=== PATIENT | female | born 1935 | race Caucasian/White ===

== ENCOUNTER 2017-01-08 05:04 | Observation (INO) | payer OTHER ==
[2017-01-08] VITALS (7 sets, daily range): BP systolic 127–160; BP diastolic 69–86; PULSE 54–74; TEMP 36.6–36.9; O2SAT 91–100; Ht 165.1 cm; Wt 113.6 kg
[~2017-01-08] VITALS: Ht 165.1 cm; Wt 113.6 kg
[~2017-01-08 05:04] MED LIST: ATV/1 PO; CALC0.2510 PO; CALCTAB36 PO; CMD5 PO; CPR500 PO; FURO40TA3 PO; GEMF600T3 PO; HYDR1TAB2 PO; INSU1INJ16; LEVO100T7 PO; LPT/40 PO; MCRK20 PO; MGNO400 PO; MULT-190 PO; MULTTAB58 PO; NVLNI SC; NXM/40 PO; PARO1TAB27 PO; TPRSR50 PO
[2017-01-08] MEDS ORDERED: LIDOCAINE/EPINEPH/TETRACAINE 1 EA SYR EXT STA (05:12)
[2017-01-08] MEDS ORDERED: DIPHTHERIA/TETANUS/PERTUSSIS 0.5 ML SYR/VIAL IM. ONE (05:30)
[2017-01-08 05:37] LABS: MEAN CORPUSCULAR HGB CONC 30.2 g/dl (32-36); MEAN PLATELET VOLUME 9.4 fL (7.4-10.4); PLATELET COUNT 219 K/uL (130-400)
[2017-01-08 05:45] LABS: POINT OF CARE TROPONIN I 0.06 ng/ml (0-0.045)
[2017-01-08 05:55] LABS: BUN/CREATININE RATIO 19.6 (10-20); CALCIUM 9.5 mg/dl (8.5-10.1); CREATININE 2.1 mg/dl (0.60-1.20); MAGNESIUM 1.9 mg/dl (1.8-2.4)
[2017-01-08 05:57] LABS: INR 1.1 (0.9-1.1); PROTHROMBIN TIME (PATIENT) 12.3 SECONDS (9.0-12.0)
[2017-01-08 06:18] LABS: HEMATOCRIT 32.4 % (37-47); MEAN CELL VOLUME 105.5 fL (80-100); MEAN CORPUSCULAR HEMOGLOBIN 31.9 pg (25-34); RED BLOOD COUNT 3.07 M/uL (4.2-5.4); WHITE BLOOD COUNT 26.88 K/uL (4.8-10.8)
[2017-01-08] MEDS ORDERED: ATV1 PO (06:21)
[2017-01-08] MEDS ORDERED: METO100T14 PO (06:21)
[2017-01-08] MEDS ORDERED: XRL15 PO (06:21)
[2017-01-08] MEDS ORDERED: HYDR-4383 PO (06:21)
[2017-01-08] MEDS ORDERED: HYZ/50125 PO (06:25)
[2017-01-08] MEDS ORDERED: PARO30TA3 PO (06:26)
[2017-01-08] MEDS ORDERED: ALLO100T PO (06:26)
[2017-01-08] MEDS ORDERED: LEVO150T9 PO (06:27)
[2017-01-08] MEDS ORDERED: TRAM-10 PO (06:27)
[2017-01-08] MEDS ORDERED: INSP SQ (06:30)
[2017-01-08] MEDS ORDERED: NVLNI SQ ×2 (06:30)
[2017-01-08 06:33] LABS: CKMB/CK RATIO 6.8 (0-3.0)
[2017-01-08 06:37] LABS: COMPLETE YES; EOSINOPHIL % 0.9 %; HYPOCHROMIA PRESENT; LYMPH ABS # 17.66 K/uL (1.2-3.4); LYMPHOCYTE % 65.7 %; NEUTROPHILS % 22.8 %; PROLYM# MAN 1.42 K/uL (0-0); SMUDGE CELLS PRESENT
--- NOTE | 2017-01-08 07:18 | DIAGNOSTIC IMAGING REPORT ---
CT OF THE HEAD WITHOUT CONTRAST CLINICAL HISTORY: Fall with head injury. Anticoagulation COMPARISON STUDY: Head CT August 25, 2013. CT DOSE: 614.27 mGy.cm TECHNIQUE: Helical axial images of the head were obtained without IV contrast. Automated exposure control was utilized for the study. FINDINGS: No acute intracranial hemorrhage, midline shift or mass effect is present. A small area of encephalomalacia within the right frontal lobe is new since head CT of August 25, 2013 but is chronic. Ventricular system is stable. The basilar cisterns are patent. There are no extra-axial collections. There are no findings to suggest acute dural sinus thrombosis or acute territorial infarct. There is mild mucosal thickening of the sphenoid sinuses. No calvarial fracture is identified. IMPRESSION: 1. No acute intracranial findings. 2. No calvarial fracture. 3. Old right frontal lobe infarct. 4. Study mildly compromised by motion artifact. Electronically signed by: Nelson Benito M.D. 01/08/2017 7:17 AM Dictated Date/Time: 01/08/2017 7:14 AM
--- NOTE | 2017-01-08 07:20 | DIAGNOSTIC IMAGING REPORT ---
CHEST ONE VIEW PORTABLE CLINICAL HISTORY: Fall. COMPARISON STUDY: Chest radiograph April 12, 2015. FINDINGS: There is no pneumothorax or pleural effusion. Elevation/eventration of the right hemidiaphragm is unchanged. Moderate to marked cardiomegaly is unchanged. There is pulmonary vascular congestion without overt pulmonary edema. There is no lobar consolidation. IMPRESSION: 1. Stable cardiomegaly with pulmonary vascular congestion. No overt pulmonary edema. 2. No pneumothorax. Electronically signed by: Nelson Benito M.D. 01/08/2017 7:18 AM Dictated Date/Time: 01/08/2017 7:17 AM
[2017-01-08] MEDS ORDERED: MAGNESIUM HYDROXIDE SUSP 30 ML UDC PO PRN (08:00)
[2017-01-08] MEDS ORDERED: ONDANSETRON INJ 2 MG/ML 2 ML VIAL IV PRN (08:00)
[2017-01-08] MEDS ORDERED: POLYETHYLENE (MIRALAX) 17 GM PACK PO PRN (08:00)
[2017-01-08] MEDS ORDERED: NITROGLYCERIN 0.4 MG SL PER TAB CHARGE SL PRN (08:00)
[2017-01-08] MEDS ORDERED: TRAMADOL HCL 50 MG TAB PO PRN (08:00)
[2017-01-08] MEDS ORDERED: LORAZEPAM 1 MG TAB PO PRN (08:00)
[2017-01-08] MEDS ORDERED: ALUMINUM/MAGNESIUM/SIMETH (MAALOX MAX) 30 ML UDC PO PRN (08:00)
--- NOTE | 2017-01-08 08:54 | History and Physical ---
History & Physical Date & Time of Service: Jan 08, 2017 at 08:26 Chief Complaint: Fall/Laceration/Headache Primary Care Physician: Joesph Horan M.D. History of Present Illness Source: patient Patient is a pleasant 81 y/o male, with PMHx of CCL, a.fib, diastolic CHF, HTN, DM, CKD- stage IV, depression/anxiety, hyperlipidemia, DEXTER, hypothyroidism, and osteoarthritis, who presented to the ED because of a fall. Per patient, she went to bed feeling well. She woke ~0300 to use the restroom. She stood from bed , went to grab her walker and fell, hitting her face off the wall. Patient states she remembers the entire event, denying any syncope or LOC. Patient denies any lightheadedness/dizziness. Per patient, she believes she fell because her legs gave out. Patient has ostearthritis and states over the last 1- 2 days her legs have been very stiff and painful. Patient received 3 stitches on the upper right lip in the ED. She denies any significant pain anywhere from the fall. Patient denies any fever, chills, sweats, lightheadedness, dizziness, vision changes, CP, palpitations, edema, SOB, wheezing, cough, abdominal pain, nausea, vomiting, diarrhea, urinary symptoms, melena, numbness/tingling, weakness, anxiety/depression, active bleeding, or new skin discoloration/ changes. Past Medical/Surgical History Medical Problems: 1. CCL 2. a.fib 3. diastolic CHF 4. HTN 5. DM 6. CKD- stage IV 7. depression/anxiety 8. hyperlipidemia 9. DEXTER 10. hypothyroidism 11. osteoarthritis Family History 1. HTN 2. DM 3. Breast cancer 4. CAD 5. Colon cancer 6. Ovarian cancer Social History Smoking Status: Never Smoker Drug Use: none Marital Status: Housing status: lives alone Occupational Status: retired Immunizations History of Influenza Vaccine: Yes Influenza Vaccine Date: Aug 26, 2006 History of Tetanus Vaccine?: Yes History of Pneumococcal: Yes History of Hepatitis B Vaccine: No Multi-Drug Resistant Organisms History of MDRO: No Allergies Coded Allergies: Aspirin (Verified Adverse Reaction, Unknown, INTOLERANT-HX GI BLEED, ) Home Medications Scheduled Allopurinol (Zyloprim), 100 MG PO DAILY Atorvastatin (Lipitor), 40 MG PO HS Calcitriol (Rocaltrol Cap), 0.25 MCG PO DAILY Esomeprazole Magnesium (Nexium), 40 MG PO DAILY Furosemide (Lasix), 40 MG PO DAILY Hctz/Losartan (Hyzaar 12.5MG/50MG), 1 TAB PO DAILY Insulin Human NPH (Novolin N), 65 UNITS SQ QAM Insulin Human NPH (Novolin N), 35 UNITS SQ QPM Insulin Human Regular (Novolin R), SQ ACHS Levothyroxine Sodium (Levothyroxine Sodium), 1 TAB PO DAILY Metoprolol Tartrate (Lopressor) (Lopressor), 100 MG PO BID Paroxetine HCl (Paroxetine), 30 MG PO DAILY Rivaroxaban (Xarelto), 15 MG PO DAILY Scheduled PRN Hydrocodone/Acetaminophen (Ennis 10/325 Tab), 1-2 TAB PO Q12 PRN for Pain Lorazepam (Lorazepam), 1 MG PO DAILY PRN for Anxiety Tramadol (Ultram), 50 MG PO Q6 PRN for Pain Physical Exam Vital Signs Date Time Temp Pulse Resp B/P Pulse Ox O2 Delivery O2 Flow Rate FiO2 01/08/17 08:22 55 20 130/76 96 Room Air 01/08/17 06:30 54 18 142/56 95 Room Air 01/08/17 05:53 54 18 135/63 95 Room Air 01/08/17 05:47 54 01/08/17 05:15 Room Air 01/08/17 05:05 36.8 54 24 120/65 96 Room Air General Appearance: no apparent distress, + obese Head: normocephalic, atraumatic Eyes: normal inspection, PERRL ENT: hearing grossly normal, + pertinent finding (swollen/bruised upper right lip, with 3 stitches present ) Neck: supple Respiratory/Chest: lungs clear, no respiratory distress, no accessory muscle use Cardiovascular: regular rate, rhythm, + systolic murmur Abdomen/GI: normal bowel sounds, non tender, soft Back: normal inspection Extremities/Musculoskelatal: no calf tenderness, + pedal edema, + swelling ( bilateral lower extremity swelling, non-pitting- baseline per patient ) Neurologic/Psych: alert, normal mood/affect, oriented x 3 Skin: normal color, warm/dry, no rash Diagnostics Laboratory Results Results Past 24 Hours Test 01/08/17 05:12 2/13/17 05:20 01/08/17 05:26 Range/Units White Blood Count 26.88 4.8-10.8 K/uL Red Blood Count 3.07 4.2-5.4 M/uL Hemoglobin 9.8 12.0-16.0 g/dL Hematocrit 32.4 37-47 % Mean Corpuscular Volume 105.5 80-100 fL Mean Corpuscular Hemoglobin 31.9 25-34 pg Mean Corpuscular Hemoglobin Concent 30.2 32-36 g/dl Platelet Count 219 130-400 K/uL Mean Platelet Volume 9.4 7.4-10.4 fL RDW Standard Deviation 57.4 36.4-46.3 fL RDW Coefficient of Variation 15.0 11.5-14.5 % Neutrophils % (Manual) 22.8 % Lymphocytes % (Manual) 65.7 % Prolymphocyte % 5.3 % Monocytes % (Manual) 5.3 % Eosinophils % (Manual) 0.9 % Neutrophils # (Manual) 6.13 1.4-6.5 K/uL Total Absolute Neutrophils 6.13 1.4-6.5 K/uL Lymphocytes # (Manual) 17.66 1.2-3.4 K/uL Prolymphocyte # 1.42 0-0 K/uL Total Absolute Lymphocytes 17.66 1.2-3.4 K/uL Monocytes # (Manual) 1.42 0.11-0.59 K/uL Eosinophils # (Manual) 0.24 0-0.5 K/uL Smudge Cells PRESENT Hypochromasia PRESENT Prothrombin Time 12.3 9.0-12.0 SECONDS Prothromb Time International Ratio 1.1 0.9-1.1 Activated Partial Thromboplast Time 26.3 21.0-31.0 SECONDS Partial Thromboplastin Ratio 1.0 Sodium Level 143 136-145 mmol/L Potassium Level 4.0 3.5-5.1 mmol/L Chloride Level 103 98-107 mmol/L Carbon Dioxide Level 30 21-32 mmol/L Anion Gap 10.0 3-11 mmol/L Blood Urea Nitrogen 41 7-18 mg/dl Creatinine 2.10 0.60-1.20 mg/dl Est Creatinine Clear Calc Drug Dose 28.3 ml/min Estimated GFR () 25.3 Estimated GFR (Non- 21.8 BUN/Creatinine Ratio 19.6 10-20 Random Glucose 148 70-99 mg/dl Calcium Level 9.5 8.5-10.1 mg/dl Magnesium Level 1.9 1.8-2.4 mg/dl Total Bilirubin 0.4 0.2-1 mg/dl Aspartate Amino Transf (AST/SGOT) 18 15-37 U/L Alanine Aminotransferase (ALT/SGPT) 16 12-78 U/L Alkaline Phosphatase 117 45-117 U/L Total Creatine Kinase 19 26-192 U/L Creatine Kinase MB 1.3 0.5-3.6 ng/ml Creatine Kinase MB Ratio 6.8 0-3.0 Total Protein 7.1 6.4-8.2 gm/dl Albumin 3.6 3.4-5.0 gm/dl Globulin 3.5 2.5-4.0 gm/dl Albumin/Globulin Ratio 1.0 0.9-2 Bedside Troponin I 0.060 0-0.045 ng/ml [id number] Natriuretic Peptide 4980 0-1800 pg/ml Diagnostic Radiology CT OF THE HEAD WITHOUT CONTRAST CLINICAL HISTORY: Fall with head injury. Anticoagulation COMPARISON STUDY: Head CT August 25, 2013. CT DOSE: 614.27 mGy.cm TECHNIQUE: Helical axial images of the head were obtained without IV contrast. Automated exposure control was utilized for the study. FINDINGS: No acute intracranial hemorrhage, midline shift or mass effect is present. A small area of encephalomalacia within the right frontal lobe is new since head CT of August 25, 2013 but is chronic. Ventricular system is stable. The basilar cisterns are patent. There are no extra-axial collections. There are no findings to suggest acute dural sinus thrombosis or acute territorial infarct. There is mild mucosal thickening of the sphenoid sinuses. No calvarial fracture is identified. IMPRESSION: 1. No acute intracranial findings. 2. No calvarial fracture. 3. Old right frontal lobe infarct. 4. Study mildly compromised by motion artifact. Electronically signed by: Nelson Benito M.D. 01/08/2017 7:17 AM Dictated Date/Time: 01/08/2017 7:14 AM The status of this report is Signed. Draft = Not yet reviewed or approved by Radiologist. Signed = Reviewed and approved by Radiologist. CHEST ONE VIEW PORTABLE CLINICAL HISTORY: Fall. COMPARISON STUDY: Chest radiograph April 12, 2015. FINDINGS: There is no pneumothorax or pleural effusion. Elevation/eventration of the right hemidiaphragm is unchanged. Moderate to marked cardiomegaly is unchanged. There is pulmonary vascular congestion without overt pulmonary edema. There is no lobar consolidation. IMPRESSION: 1. Stable cardiomegaly with pulmonary vascular congestion. No overt pulmonary edema. 2. No pneumothorax. Electronically signed by: Nelson Benito M.D. 01/08/2017 7:18 AM Dictated Date/Time: 01/08/2017 7:17 AM The status of this report is Signed. Draft = Not yet reviewed or approved by Radiologist. Signed = Reviewed and approved by Radiologist. EKG JANEE KRUEGER ID:[id number] 08-JAN-2017 05:15:21 [facility] Wide QRS rhythm Right bundle branch block Left anterior fascicular block Bifascicular block Inferior infarct , age undetermined Abnormal ECG When compared with ECG of 12-APR-2015 13:58, Wide QRS rhythm has replaced Atrial fibrillation Vent. rate has decreased BY 64 BPM 25mm/s 10mm/mV 150Hz 8.0 SP2 12SL 241 MAGNUS: 0 Referred by: Referred Self Unconfirmed Vent. rate 54 BPM W[place] interval * ms QRS duration 150 ms QT/QTc 500/474 ms P-R-T axes * -64 -28 1935 (81 yr) Female 113in Room:[facility] Loc:15 Fortune Teller:Katey Najera ind: Impression Assessment and Plan 81 y/o male, with PMHx of CCL, a.fib, diastolic CHF, HTN, DM, CKD- stage IV, depression/anxiety, hyperlipidemia, DEXTER, hypothyroidism, and osteoarthritis, who presented to the ED because of a fall. Denies syncope/LOC. Fall, ?possibly secondary to bradycardia: - Admit tele observation - Trend cardiac enzymes - f/u U/A - Check orthostatic BPs - Consult cardiology, appreciate recommendations. Diastolic CHF/a.fib: - Continue Lasix 40 mg PO daily - Continue Metoprolol 100 mg PO BID - Continue Xarelto 15 mg PO daily - Patient follows with Dr. Luque - ECHO in June 2016- normal biventricular systolic function, mild LVH, biatrial dilation, severe , mild aortic regurgitation, trace mitral regurgitation, moderate tricuspid regurgitation, moderately elevated RV systolic pressure. CLL: - Does not follow with oncology - Labs appear at baseline. Follow CBC T2DM: - BSG ACHS with sliding insulin scale HTN: - Continue Hyzaar 1 tablet PO daily Hyperlipidemia: - Continue Atorvastatin 40 mg PO daily CKD, stage IV: - At baseline, follow BMP GERD: - Protonix 40 mg PO daily Depression/anxiety: - Continue Paroxetine 30 mg PO daily - Continue Ativan 1 mg PO daily PRN Osteoarthritis: - Continue Ultram 50 mg PO q6hrs PRN and Ennis 1-2 tablets PO q12 hrs PRN Hypothyroidism: - Continue Synthroid 150 mcg PO daily DEXTER: - CPAP HS GI Prophylaxis: - Maalox PRN - IV Zofran PRN - Colace and/or Milk of Mag PRN DVT prophylaxis: - Xarelto - REJI and SCDs Code Status: - LEVEL V, DNR/DNI Dispo: - From home, lives alone. Son lives nearby. - PT/OT evaluations prior to discharge. Level of Care Telemetry Resuscitation Status DO NOT RESUSCITATE VTE Prophylaxis VTE Risk Assessment Done? Y/N: Yes Risk Level: Low Given or contraindicated: Other Anticoagulation, T.E.D. 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 Discussed with SELAM Payne and agree with findings and plan as documented in the note. Any exceptions or clarifications are listed here: Pt admitted with likely mechanical fall although in her story to me sounds like there may have been a period where she doesn't remember exactly what happened. Has lac on upper lip, left sided rib pain, some bruising on left upper arm and bilat knees. No CP or SOB, no palpitations. No headache. Vitals reviewed, remains in and out of A-fib with rates in the 50s NAD, Obese Upper lip with small lac with [address] and edema of upper lip, ecchymosis present on upper lip and perioral region Irreg irreg and bradycardic, harsh 3/6 CANDY at RUSB Bibasilar crackles, otherwise CTAB Abd soft NT ND + BS, large ventral hernia is easily reducible Ext lipedema and some trace pitting edema ankles bilat Skin ecchymosis on lip/perioral as well as bilat knees and left upper arm A/P: 72 yo female with likely mechanical fall with slow A-fib, elevated proBNP and mild CHF on CXR, Severe , elevated troponin but stable x 2 Diurese for CHF, f/u ECHO result to see if valve worsening and/or development of systolic CHF. Head CT neg for acute disease but shows likely old CVA. CXR without fractures or PTX. -continue tele monitoring, holding metoprolol for bradycardia if HR<60 -continue Xarelto -f/u 3rd troponin Pain control, ice pack to face for swelling PT/OT consult Appreciate Cardiology recommendations PCP follows her for CLL CKD stage IV stable Documented By: Tiana Alaniz
[2017-01-08] MEDS ORDERED: FUROSEMIDE 40 MG TAB PO SCH (09:00)
[2017-01-08] MEDS ORDERED: IV FLUIDS COMPLETED PRN (09:00)
[2017-01-08] MEDS ORDERED: DEXTROSE 50% 50 ML SYR IV PRN (10:00)
[2017-01-08] MEDS ORDERED: GLUCOSE 40% GEL 15 GM TUBE PO PRN (10:00)
[2017-01-08] MEDS ORDERED: GLUCAGON FOR INJ 1 MG VIAL SQ PRN (10:00)
[2017-01-08] MEDS ORDERED: GLUCOSE 10 TABS/TUBE PO PRN (10:00)
[2017-01-08] MEDS: LEVOTHYROXINE 150 MCG TAB PO SCH (10:30)
[2017-01-08] MEDS: METOPROLOL TARTRATE 100 MG TAB PO SCH ×2 (10:30→20:44)
[2017-01-08] MEDS: RIVAROXABAN TAB 15 MG TAB PO SCH (10:30)
[2017-01-08] MEDS: PANTOprazole SOD 40 MG TAB PO SCH (10:30)
[2017-01-08] MEDS: ALLOPURINOL 100 MG TAB PO SCH (10:31)
[2017-01-08] MEDS: CALCITRIOL 0.25 MCG CAP PO SCH (10:31)
[2017-01-08] MEDS: PAROXETINE 30 MG TAB PO SCH (10:32)
[2017-01-08] MEDS: LOSARTAN/HCTZ 50-12.5 EA TAB PO SCH (10:32)
[2017-01-08] MEDS: INSULIN ASPART 100 UNITS/ML 3 ML PEN SC SCH ×3 (11:55→20:42)
[2017-01-08] MEDS ORDERED: FUROSEMIDE 40 MG/4 ML VIAL IV STA (12:54)
--- NOTE | 2017-01-08 12:54 | Cardiology Consultation ---
Cardiology Consultation Date of Consultation: Jan 08, 2017. Attending Physician: Dr. Stiles Reason for Consultation: Shortness of breath, atrial fibrillation Pt evaluation today including: conversation w/ patient, physical exam, lab review, review of studies, review of inpatient medication list History of Present Illness This is a very pleasant 81-year-old woman who has a history of CML, long- standing paroxysmal atrial fibrillation (which has been asymptomatic) as well as severe aortic stenosis. She has had normal left ventricular function in the past, last tested on 07/12/2016. She has declined evaluation for valve replacement in the past. She presents now having had a fall on going to the bathroom, she feels that this was due to her arthritis limiting her mobility, she denies any lightheadedness or loss of consciousness. She also reports that she has had increasing fluid retention with peripheral edema over the last several months and more recently significant shortness of breath. At the time of my evaluation shortly after admission she was still complaining of shortness of breath with minimal activities in her room but not at rest. She denies chest discomfort. Past Medical/Surgical History Medical Problems: 1. CCL 2. a.fib 3. diastolic CHF 4. HTN 5. DM 6. CKD- stage IV 7. depression/anxiety 8. hyperlipidemia 9. DEXTER 10. hypothyroidism 11. osteoarthritis 12. Severe aortic stenosis Family History 1. HTN 2. DM 3. Breast cancer 4. CAD 5. Colon cancer 6. Ovarian cancer Social History Smoking Status: Never Smoker History of Alcohol Use: No Review of Systems Constitutional: No fever, No weakness, No weight loss Respiratory: + dyspnea on exertion, + see HPI, No cough, No shortness of breath , No wheezing Cardiac: + edema, + see HPI, No PND, No chest pain, No orthopnea, No palpitations Abdomen: No GI bleeding, No diarrhea, No nausea, No pain, No vomiting Female : No problem reported Neurologic: No balance problems, No numbness/tingling, No paralysis, No weakness Heme: No abnormal bleeding/bruising, No clotting problems Endo: No fatigue Skin: No problem reported All Other Systems: Reviewed and Negative Allergies Coded Allergies: Aspirin (Verified Adverse Reaction, Unknown, INTOLERANT-HX GI BLEED, ) Medications Current Inpatient Medications Medications (Trade) Dose Ordered Sig/Yina Route Start Time Stop Time Status Last Admin Dose Admin Acetaminophen (Tylenol Tab) 650 mg Q4H PRN PO 01/08/17 08:00 02/07/17 07:59 Al Hydrox/Mg Hydrox/Simethicone (Maalox Max Susp) 15 ml Q4H PRN PO 01/08/17 08:00 02/07/17 07:59 Magnesium Hydroxide (Milk Of Magnesia Susp) 30 ml Q12H PRN PO 01/08/17 08:00 02/07/17 07:59 Ondansetron HCl (Zofran Inj) 4 mg Q6H PRN IV 01/08/17 08:00 02/07/17 07:59 Nitroglycerin (Nitrostat Tab) 0.4 mg UD PRN SL 01/08/17 08:00 02/07/17 07:59 Polyethylene (Miralax Powder Packet) 17 gm DAILY PRN PO 01/08/17 08:00 02/07/17 07:59 Allopurinol (Zyloprim Tab) 100 mg DAILY PO 01/08/17 09:00 02/07/17 08:59 01/08/17 10:31 100 MG Atorvastatin Calcium (Lipitor Tab) 40 mg HS PO 01/08/17 21:00 02/07/17 20:59 Calcitriol (Rocaltrol Cap) 0.25 mcg DAILY PO 01/08/17 09:00 02/07/17 08:59 01/08/17 10:31 0.25 MCG Furosemide (Lasix Tab) 40 mg DAILY PO 01/08/17 09:00 02/07/17 08:59 01/08/17 10:31 40 MG HCTZ/Losartan Potassium (Hyzaar 50-12.5 Tab) 1 tab DAILY PO 01/08/17 09:00 02/07/17 08:59 01/08/17 10:32 1 TAB Acetaminophen/ Hydrocodone Bitart ([place] 10/325 Tab) 2 tab Q12 PRN PO 01/08/17 08:00 01/22/17 07:59 Levothyroxine Sodium (Synthroid Tab) 150 mcg DAILYBB PO 01/08/17 09:00 02/07/17 08:59 01/08/17 10:30 150 MCG Lorazepam (Ativan Tab) 1 mg DAILY PRN PO 01/08/17 08:00 02/07/17 07:59 Metoprolol Tartrate (Lopressor Tab) 100 mg BID PO 01/08/17 09:00 02/07/17 08:59 01/08/17 10:30 100 MG Rivaroxaban (Xarelto Tab) 15 mg DAILY PO 01/08/17 09:00 02/07/17 08:59 01/08/17 10:30 15 MG Tramadol HCl (Ultram Tab) 50 mg Q6 PRN PO 01/08/17 08:00 02/07/17 07:59 Paroxetine HCl (pAXil) 30 mg DAILY PO 01/08/17 09:00 02/07/17 08:59 01/08/17 10:32 30 MG Pantoprazole Sodium (Protonix Tab) 40 mg QAM PO 01/08/17 09:00 02/07/17 08:59 01/08/17 10:30 40 MG Insulin Aspart (novoLOG ASPART) SLIDING SCALE G... ACHS SC 01/08/17 11:00 02/07/17 10:59 01/08/17 11:55 2 UNITS Miscellaneous (Iv Fluids Completed) 1 ea PRN PRN N/A 01/08/17 09:00 01/08/18 08:59 Glucose (Glucose 40% Gel) 15-30 GRAMS 15 GRAMS... UD PRN PO 01/08/17 10:00 02/07/17 09:59 Glucose (Glucose Chew Tab) 4-8 Tablets 4 Tabl... UD PRN PO 01/08/17 10:00 02/07/17 09:59 Dextrose (Dextrose 50% 50ML Syringe) 25-50ML OF 50% DW IV FOR... UD PRN IV 01/08/17 10:00 02/07/17 09:59 Glucagon (Glucagon Inj) 1 mg UD PRN SQ 01/08/17 10:00 02/07/17 09:59 Physical Exam Vital Signs Past 12 Hours Date Time Temp Pulse Resp B/P Pulse Ox O2 Delivery O2 Flow Rate FiO2 01/08/17 12:00 Room Air 01/08/17 11:34 36.8 55 22 135/69 91 Room Air 01/08/17 10:20 74 18 144/79 Room Air 01/08/17 10:12 99 Room Air 01/08/17 09:50 36.6 56 18 160/86 99 Room Air 01/08/17 08:44 55 01/08/17 08:22 55 20 130/76 96 Room Air 01/08/17 06:30 54 18 142/56 95 Room Air 01/08/17 05:53 54 18 135/63 95 Room Air 01/08/17 05:47 54 01/08/17 05:15 Room Air 01/08/17 05:05 36.8 54 24 120/65 96 Room Air Constitutional: General Apperance: overweight Level of Distress: NAD Psychiatric: Mental Status: active & alert Head: normocephalic, atraumatic, with evidence of injury (her upper lip is sutured.) Eyes: EOM: EOMI ENMT: normal ENT inspection, hearing grossly normal Neck: supple, no masses Lungs: Respiratory effort: no dyspnea, good air movement Auscultation: no wheezing, rales/crackles on the left, rales/crackles on the right Cardiovascular: Heart Auscultation: no rubs, no gallops, II/ CANDY, II/ WSM, irregular rate rhythm Peripheral Pulses: Bruits: none appreciated Abdomen: Bowel Sounds: normal Inspection & Palpation: soft, no tenderness, guarding & rebound, no masses Musculoskeletal: normal strength (5/5 throughout) Extremities: edema (+2 bilateral pretibial) Neurologic: Cranial Nerves: grossly intact Sensation: grossly intact Data Laboratory Results: Last 24 Hours Test 01/08/17 05:12 01/08/17 05:20 01/08/17 05:26 01/08/17 11:31 White Blood Count 26.88 K/uL Red Blood Count 3.07 M/uL Hemoglobin 9.8 g/dL Hematocrit 32.4 % Mean Corpuscular Volume 105.5 fL Mean Corpuscular Hemoglobin 31.9 pg Mean Corpuscular Hemoglobin Concent 30.2 g/dl Platelet Count 219 K/uL Mean Platelet Volume 9.4 fL RDW Standard Deviation 57.4 fL RDW Coefficient of Variation 15.0 % Neutrophils % (Manual) 22.8 % Lymphocytes % (Manual) 65.7 % Prolymphocyte % 5.3 % Monocytes % (Manual) 5.3 % Eosinophils % (Manual) 0.9 % Neutrophils # (Manual) 6.13 K/uL Total Absolute Neutrophils 6.13 K/uL Lymphocytes # (Manual) 17.66 K/uL Prolymphocyte # 1.42 K/uL Total Absolute Lymphocytes 17.66 K/uL Monocytes # (Manual) 1.42 K/uL Eosinophils # (Manual) 0.24 K/uL Smudge Cells PRESENT Hypochromasia PRESENT Prothrombin Time 12.3 SECONDS Prothromb Time International Ratio 1.1 Activated Partial Thromboplast Time 26.3 SECONDS Partial Thromboplastin Ratio 1.0 Sodium Level 143 mmol/L Potassium Level 4.0 mmol/L Chloride Level 103 mmol/L Carbon Dioxide Level 30 mmol/L Anion Gap 10.0 mmol/L Blood Urea Nitrogen 41 mg/dl Creatinine 2.10 mg/dl Est Creatinine Clear Calc Drug Dose 28.3 ml/min Estimated GFR () 25.3 Estimated GFR (Non- 21.8 BUN/Creatinine Ratio 19.6 Random Glucose 148 mg/dl Calcium Level 9.5 mg/dl Magnesium Level 1.9 mg/dl Total Bilirubin 0.4 mg/dl Aspartate Amino Transf (AST/SGOT) 18 U/L Alanine Aminotransferase (ALT/SGPT) 16 U/L Alkaline Phosphatase 117 U/L Total Creatine Kinase 19 U/L Creatine Kinase MB 1.3 ng/ml Creatine Kinase MB Ratio 6.8 Total Protein 7.1 gm/dl Albumin 3.6 gm/dl Globulin 3.5 gm/dl Albumin/Globulin Ratio 1.0 Bedside Troponin I 0.060 ng/ml [id number] Natriuretic Peptide 4980 pg/ml Bedside Glucose 137 mg/dl Imaging: Her chest x-ray shows pulmonary vascular congestion without overt congestive heart failure. An echocardiogram done 07/12/2016 showed normal biventricular systolic function , mild LVH, severe aortic stenosis with a calculated valve area is 0.9 cm EKG: An electrocardiogram on arrival this morning demonstrates sinus bradycardia at 54 bpm with bifascicular block (left anterior fascicular block and right bundle branch block). Telemetry reviewed: On arrival she was in sinus rhythm at a rate in the 50s predominantly, subsequently converted to atrial fibrillation with a controlled heart rate. Assessment & Plan #1. Fall: The cause of her fall was probably mechanical, although since she presented with a relatively slow heart rate in sinus rhythm is possible she had a conversion from atrial fibrillation to sinus rhythm (she is now back in atrial fibrillation). At this point I would just monitor her to see if she has any slow heart rates. #2. Peripheral edema and dyspnea on exertion: She appears to be fluid overloaded and she will need diuresis. The cause of this is not clear, getting an echocardiogram would be reasonable. #3. Atrial fibrillation: She has long history of paroxysmal atrial fibrillation which has been asymptomatic, although it is possible it has contributed to edema. She presented in sinus bradycardia but then converted to atrial fibrillation without being aware of the conversion. The heart rate is well controlled (if anything slow) in both rhythms. She should remain on anticoagulation (Xarelto) despite the fall. #4. Aortic stenosis: She has known severe aortic stenosis and on exam it sounds similar to what is reported in her last echocardiogram. It may be reasonable however to repeat the echocardiogram to see if there is not change in her bowel or her left ventricular function. In the past she has declined evaluation for replacement. Thank you for allowing me to participate in her care.
[2017-01-08] MEDS ORDERED: FUROSEMIDE INJ 40 MG in SYRINGE 0 ML IV ONE (13:15)
[2017-01-08] MEDS: ACETAMINOPHEN 325 MG TAB PO PRN (15:39)
[2017-01-08 15:55] LABS: URINE APPEARANCE CLEAR (CLEAR); URINE BILIRUBIN NEG (NEG); URINE COLOR YELLOW; URINE NITRITE NEG (NEG); URINE PH 7.5 (4.5-7.5); URINE SPECIFIC GRAVITY 1.004 (1.000-1.030); UROBILINOGEN NEG (NEG)
[2017-01-08 16:00] LABS: MANUAL MICROSCOPIC REQUIRED? NO; REVIEW REQ? NO
[2017-01-08] MEDS: ATORVASTATIN 40 MG TAB PO SCH (21:45)
[2017-01-08] MEDS: HYDROCODONE/ACETAMI 10/325 TAB PO PRN (22:28)
--- NOTE | 2017-01-08 22:42 | EMERGENCY ROOM VISIT NOTE ---
History First contact with patient: 05:08 Chief Complaint: FALL Stated Complaint: FALL History of Present Illness The patient is a 81 year old female who presents to the Emergency Room with complaints of fall at home about one hour ago. The patient believes that she was getting out of her bed to use the bathroom, when she fell, and struck her head. The patient has a history of atrial fibrillation and is on Xarelto. She does have laceration to her lip. She does not report significant head or neck, or extremity pain. The patient is unsure how long she was on the ground, but was able to get up herself. She lives at home and contacted EMS. The patient was reportedly confused and unsteady with her gait for EMS. The patient herself does not have significant complaint at this time. She rates her current discomfort a 2/10. She is unsure of her tetanus. Review of Systems More than 10 systems were reviewed and otherwise negative with the exception of history of present illness. Past Medical/Surgical History Medical Problems: (1) ATRIAL FIBRILLATION (2) Chronic lymphocytic leukemia (CLL), B-cell (3) Congestive heart failure (4) CORONARY ATHEROSCLEROSIS OF [place] CORONARY VESSEL (5) DIAB TRELL WO COMPL, TYPE II OR UNSPEC TYPE, UNCONTROLLED (6) Fall (7) MALIG SAMMIE CORPUS UTERI (8) Pneumonia (9) SOB (shortness of breath) Family History No pertinent family history Social History Smoking Status: Never Smoker Drug Use: none Marital Status: Housing Status: lives with family Occupation Status: retired Current/Historical Medications Scheduled Allopurinol (Zyloprim), 100 MG PO DAILY Atorvastatin (Lipitor), 40 MG PO HS Calcitriol (Rocaltrol Cap), 0.25 MCG PO DAILY Esomeprazole Magnesium (Nexium), 40 MG PO DAILY Furosemide (Lasix), 40 MG PO DAILY Hctz/Losartan (Hyzaar 12.5MG/50MG), 1 TAB PO DAILY Insulin Human NPH (Novolin N), 65 UNITS SQ QAM Insulin Human NPH (Novolin N), 35 UNITS SQ QPM Insulin Human Regular (Novolin R), SQ ACHS Levothyroxine Sodium (Levothyroxine Sodium), 1 TAB PO DAILY Metoprolol Tartrate (Lopressor) (Lopressor), 100 MG PO BID Paroxetine HCl (Paroxetine), 30 MG PO DAILY Rivaroxaban (Xarelto), 15 MG PO DAILY Scheduled PRN Hydrocodone/Acetaminophen ([place] 10/325 Tab), 1-2 TAB PO Q12 PRN for Pain Lorazepam (Lorazepam), 1 MG PO DAILY PRN for Anxiety Tramadol (Ultram), 50 MG PO Q6 PRN for Pain Allergies Coded Allergies: Aspirin (Verified Adverse Reaction, Unknown, INTOLERANT-HX GI BLEED, ) Physical Exam Vital Signs Date Time Temp Pulse Resp B/P Pulse Ox O2 Delivery O2 Flow Rate FiO2 01/08/17 08:22 55 20 130/76 96 Room Air 01/08/17 06:30 54 18 142/56 95 Room Air 01/08/17 05:53 54 18 135/63 95 Room Air 01/08/17 05:47 54 01/08/17 05:15 Room Air 01/08/17 05:05 36.8 54 24 120/65 96 Room Air Pain Rating (0-10): 0 Physical Exam VITALS: Vitals are noted on the nurse's note and reviewed by myself. Vital signs stable. GENERAL: Elderly-appearing white female who is pleasant but mildly confused on initial examination. She is unsure of the exact reason that she is here in the ER. HEAD: Normocephalic atraumatic. EARS: External ear normal. External auditory canals clear, tympanic membranes pearly gan without erythema or effusion bilaterally. EYES: Pupils equal round and reactive to light and accommodation. Conjunctivae without injection, sclerae without icterus. Extraocular movements intact. NOSE: Patent, turbinates without inflammation or discharge. MOUTH: Mucous membranes moist. Tonsils are not enlarged. Pharynx without erythema, blood, or exudate. Uvula midline. Airway patent. There is a 2.0 cm fairly linear laceration over the mid upper lip. This will require repair. NECK: Supple without nuchal rigidity. No lymphadenopathy. No thyromegaly. Cervical spine is nontender. HEART: Regular rate and rhythm with harsh 3/6 systolic murmur LUNGS: Fine bibasilar crackles appreciated ABDOMEN: Positive normal bowel sounds x 4. Soft, nontender, without masses or organomegaly. No guarding or rebound tenderness. MUSCULOSKELETAL: Full range of motion without joint tenderness in all extremities. No tenderness to palpation. NEURO: Patient was alert and oriented to person place and time. CN II through XII grossly intact. Medical Decision & Procedures ER Provider Diagnostic Interpretation: CT OF THE HEAD WITHOUT CONTRAST CLINICAL HISTORY: Fall with head injury. Anticoagulation COMPARISON STUDY: Head CT August 25, 2013. CT DOSE: 614.27 mGy.cm TECHNIQUE: Helical axial images of the head were obtained without IV contrast. Automated exposure control was utilized for the study. FINDINGS: No acute intracranial hemorrhage, midline shift or mass effect is present. A small area of encephalomalacia within the right frontal lobe is new since head CT of August 25, 2013 but is chronic. Ventricular system is stable. The basilar cisterns are patent. There are no extra-axial collections. There are no findings to suggest acute dural sinus thrombosis or acute territorial infarct. There is mild mucosal thickening of the sphenoid sinuses. No calvarial fracture is identified. IMPRESSION: 1. No acute intracranial findings. 2. No calvarial fracture. 3. Old right frontal lobe infarct. 4. Study mildly compromised by motion artifact. CHEST ONE VIEW PORTABLE CLINICAL HISTORY: Fall. COMPARISON STUDY: Chest radiograph April 12, 2015. FINDINGS: There is no pneumothorax or pleural effusion. Elevation/eventration of the right hemidiaphragm is unchanged. Moderate to marked cardiomegaly is unchanged. There is pulmonary vascular congestion without overt pulmonary edema. There is no lobar consolidation. IMPRESSION: 1. Stable cardiomegaly with pulmonary vascular congestion. No overt pulmonary edema. 2. No pneumothorax. Laboratory Results 01/08/17 05:20 Red Blood Count 3.07, Mean Corpuscular Volume 105.5, Mean Corpuscular Hemoglobin 31.9, Mean Corpuscular Hemoglobin Concent 30.2, Mean Platelet Volume 9.4 01/08/17 05:20 Test 01/08/17 05:20 01/08/17 05:26 White Blood Count 26.88 K/uL (4.8-10.8) Red Blood Count 3.07 M/uL (4.2-5.4) Hemoglobin 9.8 g/dL (12.0-16.0) Hematocrit 32.4 % (37-47) Mean Corpuscular Volume 105.5 fL (80-100) Mean Corpuscular Hemoglobin 31.9 pg (25-34) Mean Corpuscular Hemoglobin Concent 30.2 g/dl (32-36) Platelet Count 219 K/uL (130-400) Mean Platelet Volume 9.4 fL (7.4-10.4) RDW Standard Deviation 57.4 fL (36.4-46.3) RDW Coefficient of Variation 15.0 % (11.5-14.5) Neutrophils % (Manual) 22.8 % Lymphocytes % (Manual) 65.7 % Prolymphocyte % 5.3 % Monocytes % (Manual) 5.3 % Eosinophils % (Manual) 0.9 % Neutrophils # (Manual) 6.13 K/uL (1.4-6.5) Total Absolute Neutrophils 6.13 K/uL (1.4-6.5) Lymphocytes # (Manual) 17.66 K/uL (1.2-3.4) Prolymphocyte # 1.42 K/uL (0-0) Total Absolute Lymphocytes 17.66 K/uL (1.2-3.4) Monocytes # (Manual) 1.42 K/uL (0.11-0.59) Eosinophils # (Manual) 0.24 K/uL (0-0.5) Smudge Cells PRESENT Hypochromasia PRESENT Prothrombin Time 12.3 SECONDS (9.0-12.0) Prothromb Time International Ratio 1.1 (0.9-1.1) Activated Partial Thromboplast Time 26.3 SECONDS (21.0-31.0) Partial Thromboplastin Ratio 1.0 Anion Gap 10.0 mmol/L (3-11) Est Creatinine Clear Calc Drug Dose 28.3 ml/min Estimated GFR () 25.3 Estimated GFR (Non- 21.8 BUN/Creatinine Ratio 19.6 (10-20) Calcium Level 9.5 mg/dl (8.5-10.1) Magnesium Level 1.9 mg/dl (1.8-2.4) Total Bilirubin 0.4 mg/dl (0.2-1) Aspartate Amino Transf (AST/SGOT) 18 U/L (15-37) Alanine Aminotransferase (ALT/SGPT) 16 U/L (12-78) Alkaline Phosphatase 117 U/L (45-117) Total Creatine Kinase 19 U/L (26-192) Total Protein 7.1 gm/dl (6.4-8.2) Albumin 3.6 gm/dl (3.4-5.0) Globulin 3.5 gm/dl (2.5-4.0) Albumin/Globulin Ratio 1.0 (0.9-2) Bedside Troponin I 0.060 ng/ml (0-0.045) JL-Skw-I-Type Natriuretic Peptide 4980 pg/ml (0-1800) Medications Administered Medications (Trade) Dose Ordered Sig/Yina Route Start Time Stop Time Status Last Admin Dose Admin Tetracaine/ Epinephrine/ Lidocaine (L.e.t. Gel 4%/ 1:100/0.5%) 1 ea NOW STAT EXT 01/08/17 05:12 01/08/17 05:15 DC 01/08/17 05:22 1 EA Diphtheria/ Pertussis/Tetanus Vacc (Adacel Inj) 0.5 ml ONCE ONCE IM. 01/08/17 05:30 01/08/17 05:31 DC 01/08/17 05:48 0.5 ML Acetaminophen (Tylenol Tab) 650 mg Q4H PRN PO 01/08/17 08:00 02/07/17 07:59 01/08/17 15:39 650 MG Procedure Laceration repair. Patient elects to have their laceration repaired. Verbal consent was obtained to perform the procedure. There is an abundance of materials available for the procedure. Patient is not allergic to latex. Using sterile technique the wound was cleaned with Betadine. The area was sterilely draped. LET gel was used to anesthetize the lip. Once the patient was anesthetized, the wound was copiously irrigated under pressure with sterile saline. The wound was explored and there were no deep structures injured such as tendons, bone, or significant blood vessels. The laceration was repaired using 3 simple interrupted 56-0 nylon sutures with the wound edges being well approximated. Hemostasis was achieved. The area was cleaned with sterile saline and dressed with bacitracin ointment and bandage. The patient was given a tetanus booster. Patient tolerated the procedure well without complications. Blood loss was negligible. ED Course Physical exam and history were performed. Nursing notes and EMR were reviewed. Patient appears to have suffered a fall at home with injury to her face. She is on Xarelto for a history of atrial fibrillation. On initial evaluation the patient appears mildly confused but cooperative. This did improve throughout her ER stay, and I was able to complete the history. The patient EKG was with a bifascicular block versus atrial fibrillation. EKG is essentially unchanged from previous EKGs. IV access was established and labs were obtained. CT scan of the head and chest x-ray was performed because of her injuries. The case was discussed with my attending physician, Dr. Reynolds, who also independently evaluated the patient and remain closely involved in care and decision making. The patient's blood work is as above and was reviewed. The patient does have a markedly elevated white blood cell count of unknown etiology. She has had this several times in the past, and this may be baseline for her. Initially she does have some renal insufficiency, which is also likely chronic. The patient' s troponin is slightly elevated. Her CT scan does not show evidence of acute process. Chest x-ray is with signs of failure. Her BNP is elevated, however I will await medicines advice regarding treatment of this considering her comorbidities. The patient's wound was repaired and she tolerated the procedure well. The case was discussed with the on-call hospitalist, who agreed to evaluate the patient here in the ER. I have concerns for her ability to ambulate without falling as well as her elevated troponin from baseline. Please see the hospitalist dictation for further patient course, plan, and disposition. The chart was completed utilizing [employer] Speech Voice Recognition Software. Grammatical errors, random word insertions, pronoun errors, and incomplete sentences are an occasional consequence of this system due to software limitations, ambient noise, and hardware issues. Any formal questions or concerns about the content, text, or information contained within the body of this dictation should be directly addressed to the provider for clarification. . Medical Decision Differential diagnosis includes, but is not limited to: Myocardial infarction, dysrhythmia, pericarditis, pneumothorax, aortic aneurysm/dissection, DVT/PE, anxiety, GERD, PUD, electrolyte imbalance, thyroid disorder, pneumonia, bronchitis, pancreatitis, and others Impression Primary Impression: Fall Additional Impressions: Facial laceration Elevated troponin Departure Information Dispostion Still a Patient Condition FAIR Referrals Joesph Horan M.D. (PCP) Forms HOME CARE DOCUMENTATION FORM, IMPORTANT VISIT INFORMATION Patient Instructions My [facility] Problem Qualifiers
[2017-01-09] VITALS (8 sets, daily range): BP systolic 109–128; BP diastolic 56–74; PULSE 54–69; TEMP 36.6–37.8; O2SAT 91–100
[2017-01-09] MEDS: LEVOTHYROXINE 150 MCG TAB PO SCH (05:31)
[2017-01-09 07:55] LABS: HEMATOCRIT 29.9 % (37-47); MEAN CELL VOLUME 104.5 fL (80-100); MEAN CORPUSCULAR HEMOGLOBIN 31.8 pg (25-34); MEAN CORPUSCULAR HGB CONC 30.4 g/dl (32-36); MEAN PLATELET VOLUME 9.4 fL (7.4-10.4); PLATELET COUNT 217 K/uL (130-400); RED BLOOD COUNT 2.86 M/uL (4.2-5.4); WHITE BLOOD COUNT 28.94 K/uL (4.8-10.8)
[2017-01-09 08:28] LABS: BUN/CREATININE RATIO 21.3 (10-20); CALCIUM 9.7 mg/dl (8.5-10.1); CREATININE 2.3 mg/dl (0.60-1.20); POTASSIUM 4.1 mmol/L (3.5-5.1)
[2017-01-09] MEDS ORDERED: FUROSEMIDE INJ 40 MG in SYRINGE 0 ML IV SCH (09:00)
[2017-01-09] MEDS: INSULIN ASPART 100 UNITS/ML 3 ML PEN SC SCH ×4 (09:27→21:18)
[2017-01-09] MEDS: PAROXETINE 30 MG TAB PO SCH (09:30)
[2017-01-09] MEDS: ALLOPURINOL 100 MG TAB PO SCH (09:31)
[2017-01-09] MEDS: CALCITRIOL 0.25 MCG CAP PO SCH (09:31)
[2017-01-09] MEDS: LOSARTAN/HCTZ 50-12.5 EA TAB PO SCH (09:31)
[2017-01-09] MEDS: PANTOprazole SOD 40 MG TAB PO SCH (09:31)
[2017-01-09] MEDS: RIVAROXABAN TAB 15 MG TAB PO SCH (09:32)
[2017-01-09] MEDS: METOPROLOL TARTRATE 100 MG TAB PO SCH (09:32)
[2017-01-09] MEDS: HYDROCODONE/ACETAMI 10/325 TAB PO PRN ×2 (09:56→20:30)
[2017-01-09] MEDS ORDERED: PERFLUTREN LIPID MICROSPHERE (DEFINITY) IV ONE (12:36)
[2017-01-09] MEDS: CEFTRIAXONE SOD INJ 1 GM in DEXTROSE 5% ADD-VANTAGE 50ML 50 ML IV SCH (14:53)
--- NOTE | 2017-01-09 15:34 | Hospitalist Progress Note ---
Hospitalist Progress Note Date of Service Jan 09, 2017. (Vira Stiles ., BRAYANC) Subjective Pt evaluation today including: conversation w/ patient, physical exam, chart review, lab review, review of inpatient medication list Voiding: no voiding problems, no incontinence Patient states she is feeling well. She is eating and drinking OK. +upper lip discomfort. +chronic bilateral lower extremity pain. Patient denies any fever, chills, sweats, lightheadedness, dizziness, vision changes, CP, palpitations, edema, SOB, wheezing, cough, abdominal pain, nausea, vomiting, diarrhea, urinary symptoms, melena, numbness/tingling, weakness, muscle/joint pain, anxiety/depression, active bleeding, or new skin discoloration/changes. (Vira Stiles ., BRAYANC) Medications Current Inpatient Medications Medications (Trade) Dose Ordered Sig/Yina Route Start Time Stop Time Status Last Admin Dose Admin Acetaminophen (Tylenol Tab) 650 mg Q4H PRN PO 01/08/17 08:00 02/07/17 07:59 01/08/17 15:39 650 MG Al Hydrox/Mg Hydrox/Simethicone (Maalox Max Susp) 15 ml Q4H PRN PO 01/08/17 08:00 02/07/17 07:59 01/08/17 22:30 15 ML Magnesium Hydroxide (Milk Of Magnesia Susp) 30 ml Q12H PRN PO 01/08/17 08:00 02/07/17 07:59 Ondansetron HCl (Zofran Inj) 4 mg Q6H PRN IV 01/08/17 08:00 02/07/17 07:59 Nitroglycerin (Nitrostat Tab) 0.4 mg UD PRN SL 01/08/17 08:00 02/07/17 07:59 Polyethylene (Miralax Powder Packet) 17 gm DAILY PRN PO 01/08/17 08:00 02/07/17 07:59 Allopurinol (Zyloprim Tab) 100 mg DAILY PO 01/08/17 09:00 02/07/17 08:59 01/09/17 09:31 100 MG Atorvastatin Calcium (Lipitor Tab) 40 mg HS PO 01/08/17 21:00 02/07/17 20:59 01/08/17 21:45 40 MG Calcitriol (Rocaltrol Cap) 0.25 mcg DAILY PO 01/08/17 09:00 02/07/17 08:59 01/09/17 09:31 0.25 MCG HCTZ/Losartan Potassium (Hyzaar 50-12.5 Tab) 1 tab DAILY PO 01/08/17 09:00 02/07/17 08:59 01/09/17 09:31 1 TAB Acetaminophen/ Hydrocodone Bitart ([place] 10/325 Tab) 2 tab Q12 PRN PO 01/08/17 08:00 01/22/17 07:59 01/09/17 09:56 2 TAB Levothyroxine Sodium (Synthroid Tab) 150 mcg DAILYBB PO 01/08/17 09:00 02/07/17 08:59 01/09/17 05:31 150 MCG Lorazepam (Ativan Tab) 1 mg DAILY PRN PO 01/08/17 08:00 02/07/17 07:59 Metoprolol Tartrate (Lopressor Tab) 100 mg BID PO 01/08/17 09:00 02/07/17 08:59 01/09/17 09:32 100 MG Rivaroxaban (Xarelto Tab) 15 mg DAILY PO 01/08/17 09:00 02/07/17 08:59 01/09/17 09:32 15 MG Tramadol HCl (Ultram Tab) 50 mg Q6 PRN PO 01/08/17 08:00 02/07/17 07:59 Paroxetine HCl (pAXil) 30 mg DAILY PO 01/08/17 09:00 02/07/17 08:59 01/09/17 09:30 30 MG Pantoprazole Sodium (Protonix Tab) 40 mg QAM PO 01/08/17 09:00 02/07/17 08:59 01/09/17 09:31 40 MG Insulin Aspart (novoLOG ASPART) SLIDING SCALE G... ACHS SC 01/08/17 11:00 02/07/17 10:59 01/09/17 13:24 7 UNITS Miscellaneous (Iv Fluids Completed) 1 ea PRN PRN N/A 01/08/17 09:00 01/08/18 08:59 Glucose (Glucose 40% Gel) 15-30 GRAMS 15 GRAMS... UD PRN PO 01/08/17 10:00 02/07/17 09:59 Glucose (Glucose Chew Tab) 4-8 Tablets 4 Tabl... UD PRN PO 01/08/17 10:00 02/07/17 09:59 Dextrose (Dextrose 50% 50ML Syringe) 25-50ML OF 50% DW IV FOR... UD PRN IV 01/08/17 10:00 02/07/17 09:59 Glucagon 1 mg 1 mg UD PRN SQ 01/08/17 10:00 02/07/17 09:59 Furosemide 40 mg/ Syringe 4 ml @ 4 mls/min DAILY IV 01/09/17 09:00 02/08/17 08:59 01/09/17 09:30 4 MLS/MIN Ceftriaxone Sodium/Dextrose (Rocephin Inj/ Dextrose Add-[place] 50ML) 50 ml @ 100 mls/hr DAILY@1400 IV 01/09/17 14:30 01/14/17 14:29 01/09/17 14:53 100 MLS/HR (Vira Stiles, PA-C) Objective Vital Signs Date Time Temp Pulse Resp B/P Pulse Ox O2 Delivery O2 Flow Rate FiO2 01/09/17 14:03 55 100 01/09/17 12:00 Nasal Cannula 2.0 01/09/17 11:11 36.8 64 16 112/66 93 Room Air 01/09/17 10:38 Room Air 01/09/17 08:00 Nasal Cannula 2.0 01/09/17 07:37 36.7 63 18 116/67 98 Nasal Cannula 2.0 01/09/17 04:00 100 Nasal Cannula 2.0 01/09/17 03:58 36.6 55 20 128/74 93 Nasal Cannula 2.0 01/09/17 00:00 36.6 57 20 124/67 93 2.0 01/09/17 00:00 100 Nasal Cannula 2.0 01/08/17 20:00 100 Nasal Cannula 2.0 01/08/17 19:51 36.7 55 22 127/78 92 Nasal Cannula 01/08/17 16:00 Nasal Cannula 2.0 (Vira Stiles, PA-C) Physical Exam General Appearance: no apparent distress Eyes: normal inspection, PERRL ENT: hearing grossly normal, + pertinent finding (3 stitches upper right lip, significant bruising of entire upper lip, swollen ) Neck: supple Respiratory/Chest: lungs clear, no respiratory distress, no accessory muscle use Cardiovascular: regular rate, rhythm Abdomen: normal bowel sounds, non tender, soft Extremities: no pedal edema, no calf tenderness, + swelling (trace pitting edema of bilateral lower extremities ) Neurologic/Psychiatric: alert, normal mood/affect, oriented x 3 Skin: normal color, warm/dry, no rash (Vira Stiles, BRAYANC) Laboratory Results Last 24 Hours Test 01/08/17 15:30 01/08/17 16:30 01/08/17 20:41 01/08/17 21:30 Urine Color YELLOW Urine Appearance CLEAR Urine pH 7.5 Urine Specific [place] 1.004 Urine Protein NEG Urine Glucose (UA) NEG Urine Ketones NEG Urine Occult Blood NEG Urine Nitrite NEG Urine Bilirubin NEG Urine Urobilinogen NEG Urine Leukocyte Esterase SMALL Urine WBC (Auto) 10-30 /hpf Urine RBC (Auto) 0-4 /hpf Urine Hyaline Casts (Auto) 1-5 /lpf Urine Epithelial Cells (Auto) 5-10 /lpf Urine Bacteria (Auto) 2+ Bedside Glucose 170 mg/dl 169 mg/dl Creatine Kinase MB Ratio Test 01/08/17 22:04 01/09/17 06:56 01/09/17 07:26 01/09/17 11:23 Creatine Kinase MB 1.3 ng/ml Troponin I 0.058 ng/ml Bedside Glucose 145 mg/dl 200 mg/dl White Blood Count 28.94 K/uL Red Blood Count 2.86 M/uL Hemoglobin 9.1 g/dL Hematocrit 29.9 % Mean Corpuscular Volume 104.5 fL Mean Corpuscular Hemoglobin 31.8 pg Mean Corpuscular Hemoglobin Concent 30.4 g/dl RDW Standard Deviation 57.6 fL RDW Coefficient of Variation 15.0 % Platelet Count 217 K/uL Mean Platelet Volume 9.4 fL Sodium Level 143 mmol/L Potassium Level 4.1 mmol/L Chloride Level 103 mmol/L Carbon Dioxide Level 30 mmol/L Anion Gap 10.0 mmol/L Blood Urea Nitrogen 49 mg/dl Creatinine 2.30 mg/dl Est Creatinine Clear Calc Drug Dose 25.8 ml/min Estimated GFR () 22.7 Estimated GFR (Non- 19.6 BUN/Creatinine Ratio 21.3 Random Glucose 135 mg/dl Calcium Level 9.7 mg/dl (Vira Stiles ., PAJobC) Assessment and Plan 81 y/o male, with PMHx of CCL, a.fib, diastolic CHF, HTN, DM, CKD- stage IV, depression/anxiety, hyperlipidemia, DEXTER, hypothyroidism, and osteoarthritis, who presented to the ED because of a fall. Denies syncope/LOC. Fall, ?possibly secondary to bradycardia: - Admit tele observation- cardiac monitoring reviewed--> in/out of a.fib, rate controlled at 50's-70's - Trend cardiac enzymes- peaked at 0.068 - Check orthostatic BPs - ECHO pending - Consult cardiology, appreciate recommendations. Diastolic CHF/a.fib: - Hold Lasix 40 mg PO daily. Started IV Lasix 40 mg per cardiology - Continue Metoprolol 100 mg PO BID--> consider decreasing? waiting for cardiology input - Continue Xarelto 15 mg PO daily - Patient follows with Dr. Luque - ECHO in June 2016- normal biventricular systolic function, mild LVH, biatrial dilation, severe , mild aortic regurgitation, trace mitral regurgitation, moderate tricuspid regurgitation, moderately elevated RV systolic pressure. UTI: - U/A dirty, urine culture growing gram negative bacilli, pending sensitives - IV Rocephin started on 01/09 CLL: - Does not follow with oncology - Labs appear at baseline. Follow CBC T2DM: - BSG ACHS with sliding insulin scale HTN: - Continue Hyzaar 1 tablet PO daily Hyperlipidemia: - Continue Atorvastatin 40 mg PO daily CKD, stage IV: - At baseline, follow BMP GERD: - Protonix 40 mg PO daily Depression/anxiety: - Continue Paroxetine 30 mg PO daily - Continue Ativan 1 mg PO daily PRN Osteoarthritis: - Continue Ultram 50 mg PO q6hrs PRN and [place] 1-2 tablets PO q12 hrs PRN Hypothyroidism: - Continue Synthroid 150 mcg PO daily DEXTER: - CPAP HS GI Prophylaxis: - Maalox PRN - IV Zofran PRN - Colace and/or Milk of Mag PRN DVT prophylaxis: - Xarelto - REJI and SCDs Code Status: - LEVEL V, DNR/DNI Dispo: - From home, lives alone. Son lives nearby. - PT recommending inpatient rehab (Vira Stiles, PA-C) Reviewed: Pt Seen/Exam by RAVEN Perez Notes, Labs, RAD (Tiana Alaniz MD) History Physician Multi Punch Operator Supervision Note: I interviewed and examined the patient. Discussed with SELAM Payne and agree with findings and plan as documented in the note. Any exceptions or clarifications are listed here: A-fib and NSR on monitor, rates 50-70s. Pt feeling very drowsy today but took 2 hydrocodone this AM and says at home she usually only takes 1 tab at a time. Pain is better in ribs, has a mild headache which is unchanged from admission. No CP or SOB. Was OOB with PT today and required assistance. Vitals and tele reviewed NAD, drowsy but wakes up and answers questions Irreg irreg with harsh 3/6 CANDY at RUSB Crackles at bases bilat, otherwise clear Abd soft, hernia ventrally is reducible and NT, +BS Ext 1+ pitting edema A/P: 72 yo female with likely mechanical fall with slow A-fib, elevated proBNP and mild CHF on CXR, Severe , elevated troponin but stable x 3 Diuresed for CHF but with slight rise in chemical detection expert now to 2.3, ECHO result reviewed with Dr. Renner, same as previous, with moderate reduced RV fxn and diastolic dysfunction. Head CT neg for acute disease but shows likely old CVA. CXR without fractures or PTX. -continue tele monitoring, decrease metoprolol to 100mg qAM and 50mg qPM -continue Xarelto -pt has declined AV replacement in the past, will discuss again and defer to Cardiology -d/c lasix for bump in chemical detection expert, continue HCTZ in Hyzaar -Appreciate Cardiology recommendations -continue observation overnight after change in metoprolol Trauma, OA knees-severe Pain control, ice pack to face for swelling PT/OT consult recommending HH vs ?acute rehab? -recommend return to Ortho for possible viscous injections PCP follows her for CLL CKD stage IV stable with slight increase chemical detection expert 2.3 Documented By: Tiana Alaniz (Tiana Alaniz MD)
--- NOTE | 2017-01-09 15:52 | ECHOCARDIOGRAM REPORT ---
*NOTICE TO RECEIVING LIBERTARIAN AGENCY This information is strictly Confidential and protected under [place] law. [place] law prohibits you from making any further disclosure of this information unless further disclosure is expressly permitted by the written consent of the person to whom it pertains or is authorized by law. A general authorization for the release of medical or other information is not sufficient for this purpose. Hospital accepts no responsibility if the information is made available to any other person, INCLUDING THE PATIENT. Interpretation Summary * Name: JANEE KRUEGER Study Date: 01/09/2017 11:43 AM * Patient Location: 2T\S\S242\S\2 * : 1935 (M/d/yyyy) Gender: Female Height: 65 in * Age: 81 yrs Ethnicity: [place] Weight: 266 lb * Ordering Physician: Tiana Alaniz * Referring Physician: Self, Referred * Performed By: Marylin Henriquez RCS * * Reason For Study: Valvular Heart Dz * BSA: 2.2 m2 * Normal left ventricular size and systolic function. * Moderate concentric left ventricular hypertrophy. * Left ventricular diastolic dysfunction. * Mild biatrial dilatation. * Severe calcific aortic stenosis. * Trace aortic regurgitation. * Mild mitral regurgitation. * Mild to moderate tricuspid regurgitation. * Mild pulmonic regurgitation. * Moderately decreased right ventricular systolic function. * Right ventricular pressure and volume overload. * Mildly elevated right ventricular systolic pressure. * -- Conclusions -- * There is severe calcific aortic valve stenosis. Procedure Details * A complete two-dimensional transthoracic echocardiogram was performed (2D, M-mode, Doppler and color flow Doppler). * A contrast injection of Definity was performed to improve assessment of LV function. * Contrast was injected into an intravenous site in the left arm. * One vial of Definity ultrasound contrast was diluted in normal saline to a total volume of 10 ml. A total of '3' ml of solution was administered during imaging. * Lot # [id number] of Definity utilized for procedure. * Expiration date . * The attending nurse who injected the contrast agent was Aleshia Parson RN. * The study was technically difficult. * There were technical limitations due to patient's supine positioning for imagining and body habitus Left Ventricle * The left ventricle is normal in size. * There is moderate concentric left ventricular hypertrophy. * Ejection Fraction = 65-70%. * Left ventricular systolic function is normal. * Diastolic dysfunction, Grade II (pseudonormalization pattern). * Flattened septum is consistent with RV pressure/volume overload. * The left ventricular wall motion is normal. Right Ventricle * The right ventricle is mildly dilated. * The right ventricular systolic function is moderately reduced. Atria * The left atrium is mildly dilated. * The right atrium is mildly dilated. * No ASD detected; PFO is not assessed. Mitral Valve * Calcified mitral apparatus. * There is no mitral valve stenosis. * There is mild mitral regurgitation. Tricuspid Valve * The tricuspid valve is normal. * There is no tricuspid stenosis. * Right ventricular systolic pressure is elevated at 30-40mmHg. * There is mild to moderate tricuspid regurgitation. Aortic Valve * Heavily calcified trileaflet aortic valve with decreased opening.. * There is severe calcific aortic valve stenosis. * Planimetered valve area 0.87 sq. cm. * Trace aortic regurgitation. Pulmonic Valve * The pulmonic valve is not well visualized. * There is no pulmonic valvular stenosis. * Mild pulmonic valvular regurgitation. Great Vessels * The aortic root is normal size. Pericardium/Pleural * There is no pericardial effusion. Great Vessels * Normal inferior vena cava diameter and respiratory variation suggests normal central venous pressure. MMode 2D Measurements and Calculations IVSd 1.6 cm IVSs 1.4 cm LVIDd 4.6 cm LVIDs 2.8 cm LVPWd 1.6 cm LVPWs 1.4 cm IVS/LVPW 0.98 FS 40.0 % EDV(Teich) 98.1 ml ESV(Teich) 28.7 ml EF(Teich) 70.7 % EDV(cubed) 98.4 ml ESV(cubed) 21.2 ml EF(cubed) 78.4 % % IVS thick -14.43 % % LVPW thick -12.62 % LV mass(C)d 317.8 grams LV mass(C)dI 142.3 grams/m\S\2 LV mass(C)s 124.9 grams LV mass(C)sI 55.9 grams/m\S\2 CO(Teich) 4.7 l/min CI(Teich) 2.1 l/min/m\S\2 SV(Teich) 69.4 ml SI(Teich) 31.1 ml/m\S\2 CO(cubed) 5.2 l/min CI(cubed) 2.3 l/min/m\S\2 SV(cubed) 77.2 ml SI(cubed) 34.5 ml/m\S\2 Ao root diam 3.4 cm Ao root area 9.2 cm\S\2 LA dimension 4.2 cm LA/Ao 1.2 LVAd ap4 31.6 cm\S\2 LVLd ap4 8.1 cm EDV(MOD-sp4) 99.0 ml LVAs ap4 19.4 cm\S\2 LVLs ap4 7.3 cm ESV(MOD-sp4) 42.0 ml EF(MOD-sp4) 57.6 % LVAd ap2 30.6 cm\S\2 LVLd ap2 8.8 cm EDV(MOD-sp2) 87.0 ml LVAs ap2 15.1 cm\S\2 LVLs ap2 7.2 cm ESV(MOD-sp2) 26.0 ml EF(MOD-sp2) 70.1 % CO(MOD-sp4) 3.8 l/min CI(MOD-sp4) 1.7 l/min/m\S\2 SV(MOD-sp4) 57.0 ml SI(MOD-sp4) 25.5 ml/m\S\2 CO(MOD-sp2) 4.1 l/min CI(MOD-sp2) 1.8 l/min/m\S\2 SV(MOD-sp2) 61.0 ml SI(MOD-sp2) 27.3 ml/m\S\2 Doppler Measurements and Calculations MV E max ranjit 144.4 cm/sec MV A max ranjit 48.1 cm/sec MV E/A 3.0 MV P1/2t max ranjit 168.3 cm/sec MV P1/2t 51.2 msec MVA(P1/2t) 4.3 cm\S\2 MV dec slope 963.8 cm/sec\S\2 MV dec time 0.21 sec Ao V2 max 414.8 cm/sec Ao max PG 69.2 mmHg Ao max PG (full) 62.9 mmHg Ao V2 mean 277.8 cm/sec Ao mean PG 35.7 mmHg Ao mean PG (full) 32.5 mmHg Ao V2 VTI 93.6 cm LV V1 max PG 6.3 mmHg LV V1 mean PG 3.2 mmHg LV V1 max 125.2 cm/sec LV V1 mean 83.1 cm/sec LV V1 VTI 29.5 cm SV(Ao) 864.2 ml SI(Ao) 387.0 ml/m\S\2 PA V2 max 136.4 cm/sec PA max PG 7.4 mmHg PI max ranjit 211.8 cm/sec PI max PG 17.9 mmHg PI dec slope 176.2 cm/sec\S\2 PI P1/2t 351.9 msec TR max ranjit 274.2 cm/sec
--- NOTE | 2017-01-09 19:30 | CARDIOLOGY PROGRESS NOTE ---
DATE: 01/09/2017 HISTORY OF PRESENT ILLNESS: The patient was seen in her room by me this evening. She is sitting at her bedside. No distress. She states she is feeling better than yesterday. She is sore. This is from her fall yesterday. She denies any dyspnea at rest. She states she sleeps comfortably with her CPAP. Over the past few weeks, she has had increased dyspnea on exertion. She had also noted increased peripheral edema over the past few weeks. Her peripheral edema has decreased since admission. She denies any anginal type chest pain. No other anginal type symptoms. No palpitations. No lightheadedness or syncope. No abdominal pain or nausea. No bleeding complaints. No cerebrovascular complaints suggestive of a thromboembolic event. CURRENT MEDICATIONS: Metoprolol tartrate 100 mg daily a.m. and 50 mg daily p.m., [place] 1 tab q. 12 hours p.r.n. pain, ceftriaxone 1 gram IV daily, atorvastatin 40 mg daily, NovoLog sliding scale insulin, allopurinol 100 mg daily, calcitriol 0.25 mcg daily, hydrochlorothiazide/losartan 50/12.5 daily, levothyroxine 150 mcg daily, Xarelto 15 mg daily, Paxil 30 mg daily, pantoprazole 40 mg daily, and several p.r.n. medications. ALLERGIES AND ADVERSE DRUG REACTIONS: ASPIRIN. Monitor history is reviewed by me. She is in atrial fibrillation with controlled ventricular response. She had 1 ventricular triplet. Echocardiogram performed today and reviewed by me shows normal left ventricular size and systolic function, moderate concentric LVH, left ventricular diastolic dysfunction, mild biatrial dilatation, severe calcific aortic stenosis, trace aortic regurgitation, mild mitral regurgitation, [id number] tricuspid regurgitation, mild pulmonic regurgitation, moderately decreased right ventricular systolic function, right ventricular pressure and volume overload, mildly elevated estimated right ventricular systolic pressure. Normal appearance of the inferior vena cava suggesting a normal central venous pressure. Electrocardiogram this morning with atrial fibrillation. Ventricular rate 81 beats per minute. Right bundle branch block. Left intrafascicular block. Inferior UT. Poor R-wave progression V1-V4. Compared to yesterday's electrocardiogram, atrial fibrillation has replaced sinus rhythm. ASSESSMENT: 1. Status post mechanical fall. She denies any associated lightheadedness. 2. Paroxysmal atrial fibrillation. Controlled ventricular response. 3. No evidence of pulmonary vascular congestion on exam. 4. Peripheral edema. She does have elevated right heart pressures. 5. Mildly elevated troponin I's on this admission 0.068 and 0.058. These are minimally elevated above top normal. Elevation in troponin would not be unexpected in light of her left ventricular hypertrophy and severe aortic stenosis. I do not suspect any acute coronary syndrome. 6. Chronic kidney disease. BUN and creatinine elevated today at 49 and 2.30 respectively. Potassium 4.1. Yesterday, her BUN was 41 and creatinine 2.10, likely secondary to intravenous diuretics administered yesterday. 7. No bleeding complaints on Xarelto. 8. Blood pressure this afternoon is good. RECOMMENDATIONS: 1. Continue to monitor overnight on the monitor. Monitor rate and rhythm. 2. Repeat BUN and creatinine tomorrow. The intravenous furosemide is currently on hold. If her BUN and creatinine improved, we would restart her oral furosemide at a higher dose of 80 mg daily. She was on 40 mg daily at the time of admission. On this dose, she developed increased peripheral edema. 3. Agree with lower dose of metoprolol. If she persists with low heart rates, could decrease the dose to 50 mg b.i.d. 4. The patient has previously refused referral for aortic valve replacement. She states that she would now consider percutaneous transaortic valve replacement. This will be further discussed with her as an outpatient. If she still wants to consider it, appropriate referrals for this procedure will be made by me.
[2017-01-09] MEDS: METOPROLOL TARTRATE 50 MG TAB PO SCH (20:23)
[2017-01-09] MEDS: ATORVASTATIN 40 MG TAB PO SCH (20:23)
[2017-01-10] VITALS (12 sets, daily range): BP systolic 89–131; BP diastolic 53–81; PULSE 55–78; TEMP 36.5–37; O2SAT 92–98
[2017-01-10] MEDS: LEVOTHYROXINE 150 MCG TAB PO SCH (04:54)
[2017-01-10 07:58] LABS: HEMATOCRIT 28.8 % (37-47); MEAN CORPUSCULAR HEMOGLOBIN 31.8 pg (25-34); MEAN CORPUSCULAR HGB CONC 30.6 g/dl (32-36); MEAN PLATELET VOLUME 9.1 fL (7.4-10.4); PLATELET COUNT 216 K/uL (130-400); RED BLOOD COUNT 2.77 M/uL (4.2-5.4); WHITE BLOOD COUNT 25.37 K/uL (4.8-10.8)
[2017-01-10] MEDS: ALLOPURINOL 100 MG TAB PO SCH (08:04)
[2017-01-10] MEDS: LOSARTAN/HCTZ 50-12.5 EA TAB PO SCH (08:04)
[2017-01-10] MEDS: RIVAROXABAN TAB 15 MG TAB PO SCH (08:04)
[2017-01-10] MEDS: PAROXETINE 30 MG TAB PO SCH (08:04)
[2017-01-10] MEDS: CALCITRIOL 0.25 MCG CAP PO SCH (08:04)
[2017-01-10] MEDS: METOPROLOL TARTRATE 100 MG TAB PO SCH (08:05)
[2017-01-10] MEDS: PANTOprazole SOD 40 MG TAB PO SCH (08:06)
[2017-01-10] MEDS: INSULIN ASPART 100 UNITS/ML 3 ML PEN SC SCH ×4 (08:10→20:55)
[2017-01-10 08:28] LABS: BUN/CREATININE RATIO 20.8 (10-20); CALCIUM 9.5 mg/dl (8.5-10.1); CREATININE 2.5 mg/dl (0.60-1.20); POTASSIUM 4.2 mmol/L (3.5-5.1)
--- NOTE | 2017-01-10 10:46 | Hospitalist Progress Note ---
Hospitalist Progress Note Date of Service Jan 10, 2017. (Vira Stiles ., BRAYANC) Subjective Pt evaluation today including: conversation w/ patient, physical exam, chart review, lab review, review of studies, review of inpatient medication list Voiding: no voiding problems, no incontinence Patient states she is feeling well. +upper lip pain and bilateral lower extremity pain. Patient denies any fever, chills, sweats, lightheadedness, dizziness, vision changes, CP, palpitations, edema, SOB, wheezing, cough, abdominal pain, nausea, vomiting, diarrhea, urinary symptoms, melena, numbness/ tingling, weakness, anxiety/depression, active bleeding, or new skin discoloration/changes. (Vira Stiles ., BRAYANC) Medications Current Inpatient Medications Medications (Trade) Dose Ordered Sig/Yina Route Start Time Stop Time Status Last Admin Dose Admin Acetaminophen (Tylenol Tab) 650 mg Q4H PRN PO 01/08/17 08:00 02/07/17 07:59 01/08/17 15:39 650 MG Al Hydrox/Mg Hydrox/Simethicone (Maalox Max Susp) 15 ml Q4H PRN PO 01/08/17 08:00 02/07/17 07:59 01/08/17 22:30 15 ML Magnesium Hydroxide (Milk Of Magnesia Susp) 30 ml Q12H PRN PO 01/08/17 08:00 02/07/17 07:59 Ondansetron HCl (Zofran Inj) 4 mg Q6H PRN IV 01/08/17 08:00 02/07/17 07:59 Nitroglycerin (Nitrostat Tab) 0.4 mg UD PRN SL 01/08/17 08:00 02/07/17 07:59 Polyethylene (Miralax Powder Packet) 17 gm DAILY PRN PO 01/08/17 08:00 02/07/17 07:59 Allopurinol (Zyloprim Tab) 100 mg DAILY PO 01/08/17 09:00 02/07/17 08:59 01/10/17 08:04 100 MG Atorvastatin Calcium (Lipitor Tab) 40 mg HS PO 01/08/17 21:00 02/07/17 20:59 01/09/17 20:23 40 MG Calcitriol (Rocaltrol Cap) 0.25 mcg DAILY PO 01/08/17 09:00 02/07/17 08:59 01/10/17 08:04 0.25 MCG HCTZ/Losartan Potassium (Hyzaar 50-12.5 Tab) 1 tab DAILY PO 01/08/17 09:00 02/07/17 08:59 01/10/17 08:04 1 TAB Levothyroxine Sodium (Synthroid Tab) 150 mcg DAILYBB PO 01/08/17 09:00 02/07/17 08:59 01/10/17 04:54 150 MCG Lorazepam (Ativan Tab) 1 mg DAILY PRN PO 01/08/17 08:00 02/07/17 07:59 Rivaroxaban (Xarelto Tab) 15 mg DAILY PO 01/08/17 09:00 02/07/17 08:59 01/10/17 08:04 15 MG Tramadol HCl (Ultram Tab) 50 mg Q6 PRN PO 01/08/17 08:00 02/07/17 07:59 01/10/17 04:56 50 MG Paroxetine HCl (pAXil) 30 mg DAILY PO 01/08/17 09:00 02/07/17 08:59 01/10/17 08:04 30 MG Pantoprazole Sodium (Protonix Tab) 40 mg QAM PO 01/08/17 09:00 02/07/17 08:59 01/10/17 08:06 40 MG Insulin Aspart (novoLOG ASPART) SLIDING SCALE G... ACHS SC 01/08/17 11:00 02/07/17 10:59 01/10/17 08:10 6 UNITS Miscellaneous (Iv Fluids Completed) 1 ea PRN PRN N/A 01/08/17 09:00 01/08/18 08:59 Glucose (Glucose 40% Gel) 15-30 GRAMS 15 GRAMS... UD PRN PO 01/08/17 10:00 02/07/17 09:59 Glucose (Glucose Chew Tab) 4-8 Tablets 4 Tabl... UD PRN PO 01/08/17 10:00 02/07/17 09:59 Dextrose (Dextrose 50% 50ML Syringe) 25-50ML OF 50% DW IV FOR... UD PRN IV 01/08/17 10:00 02/07/17 09:59 Glucagon 1 mg 1 mg UD PRN SQ 01/08/17 10:00 02/07/17 09:59 Ceftriaxone Sodium/Dextrose (Rocephin Inj/ Dextrose Add-[place] 50ML) 50 ml @ 100 mls/hr DAILY@1400 IV 01/09/17 14:30 01/14/17 14:29 01/09/17 14:53 100 MLS/HR Acetaminophen/ Hydrocodone Bitart (Vance 10/325 Tab) 1 tab Q12 PRN PO 01/09/17 21:00 01/23/17 20:59 01/09/17 20:30 1 TAB Metoprolol Tartrate (Lopressor Tab) 100 mg QAM PO 01/10/17 09:00 02/09/17 08:59 01/10/17 08:05 100 MG Metoprolol Tartrate (Lopressor Tab) 50 mg PM PO 01/09/17 21:00 02/08/17 20:59 (Vira Stiles, PA-C) Objective Vital Signs Date Time Temp Pulse Resp B/P Pulse Ox O2 Delivery O2 Flow Rate FiO2 01/10/17 08:00 Nasal Cannula 2.0 01/10/17 07:56 74 127/63 01/10/17 07:52 66 130/81 01/10/17 07:51 37.0 78 18 130/72 94 Room Air 2.0 01/10/17 04:34 74 119/66 01/10/17 04:32 71 127/59 01/10/17 04:30 Nasal Cannula 2.0 01/10/17 04:30 36.7 64 18 109/65 93 Nasal Cannula 2.0 01/10/17 00:10 36.6 56 18 115/56 93 01/10/17 00:00 Nasal Cannula 2.0 01/09/17 21:00 Nasal Cannula 2.0 01/09/17 20:00 37.8 54 19 109/56 91 Nasal Cannula 2.0 01/09/17 16:00 Nasal Cannula 2.0 01/09/17 15:52 36.8 69 16 114/69 96 Nasal Cannula 5.0 01/09/17 14:03 55 100 01/09/17 12:00 Nasal Cannula 2.0 01/09/17 11:11 36.8 64 16 112/66 93 Room Air 01/09/17 10:38 Room Air (Vira Stiles PA-C) Physical Exam General Appearance: no apparent distress, + obese Eyes: normal inspection, PERRL ENT: hearing grossly normal, + pertinent finding (bruising of upper lip- healing ) Neck: supple Respiratory/Chest: lungs clear, no respiratory distress, no accessory muscle use Cardiovascular: regular rate, rhythm, + systolic murmur Abdomen: normal bowel sounds, non tender, soft Extremities: no pedal edema, no calf tenderness Neurologic/Psychiatric: alert, normal mood/affect, oriented x 3 Skin: normal color, warm/dry, no rash (Vira Stiles PA-C) Laboratory Results Last 24 Hours Test 01/09/17 11:23 01/09/17 16:27 01/09/17 20:59 01/10/17 06:40 Bedside Glucose 200 mg/dl 138 mg/dl 192 mg/dl 172 mg/dl Test 01/10/17 07:42 White Blood Count 25.37 K/uL Red Blood Count 2.77 M/uL Hemoglobin 8.8 g/dL Hematocrit 28.8 % Mean Corpuscular Volume 104.0 fL Mean Corpuscular Hemoglobin 31.8 pg Mean Corpuscular Hemoglobin Concent 30.6 g/dl RDW Standard Deviation 57.1 fL RDW Coefficient of Variation 15.0 % Platelet Count 216 K/uL Mean Platelet Volume 9.1 fL Sodium Level 142 mmol/L Potassium Level 4.2 mmol/L Chloride Level 102 mmol/L Carbon Dioxide Level 29 mmol/L Anion Gap 11.0 mmol/L Blood Urea Nitrogen 52 mg/dl Creatinine 2.50 mg/dl Est Creatinine Clear Calc Drug Dose 22.9 ml/min Estimated GFR () 20.5 Estimated GFR (Non- 17.7 BUN/Creatinine Ratio 20.8 Random Glucose 160 mg/dl Calcium Level 9.5 mg/dl (Vira Stiles PA-C) Assessment and Plan 81 y/o male, with PMHx of CCL, a.fib, diastolic CHF, HTN, DM, CKD- stage IV, depression/anxiety, hyperlipidemia, DEXTER, hypothyroidism, and osteoarthritis, who presented to the ED because of a fall. Denies syncope/LOC. Fall, ?possibly secondary to bradycardia: - Admit tele observation- cardiac monitoring reviewed--> in/out of a.fib, bradycardia improved with adjustment in medications -- transfer to med/surg on 01/10 - Trend cardiac enzymes- peaked at 0.068 - Check orthostatic BPs - ECHO- no significant changes from previous ECHO - Consult cardiology, appreciate recommendations--> recommend increasing Furosemide to 80 mg PO daily (Cr. at 2.5 on 01/10 - talked with cardiology, keep lasix at 40 mg PO daily) Diastolic CHF/a.fib: - Hold Lasix 40 mg PO daily. Treated IV Lasix 40 mg per cardiology due to fluid overload - Continue Metoprolol 100 mg PO BID--> to 100 mg PO QAM and 50 mg PO QPM with improvement in bradycardia - Continue Xarelto 15 mg PO daily - Patient follows with Dr. Luque - ECHO in June 2016- normal biventricular systolic function, mild LVH, biatrial dilation, severe , mild aortic regurgitation, trace mitral regurgitation, moderate tricuspid regurgitation, moderately elevated RV systolic pressure. UTI: - U/A dirty, urine culture growing klebsiella pneumoniae, sensitives reviewed - IV Rocephin started on 01/09 CLL: - Does not follow with oncology - Labs appear at baseline. Follow CBC T2DM: - BSG ACHS with sliding insulin scale HTN: - Continue Hyzaar 1 tablet PO daily--> stop on 01/10, start Losartan 12.5 mg PO due to kidney function Hyperlipidemia: - Continue Atorvastatin 40 mg PO daily CKD, stage IV: - Cr. 2.50, follow BMP GERD: - Protonix 40 mg PO daily Depression/anxiety: - Continue Paroxetine 30 mg PO daily - Continue Ativan 1 mg PO daily PRN Osteoarthritis: - Continue Ultram 50 mg PO q6hrs PRN and [place]ance 1-2 tablets PO q12 hrs PRN Hypothyroidism: - Continue Synthroid 150 mcg PO daily DEXTER: - CPAP HS GI Prophylaxis: - Maalox PRN - IV Zofran PRN - Colace and/or Milk of Mag PRN DVT prophylaxis: - Xarelto - REJI and SCDs Code Status: - LEVEL V, DNR/DNI Dispo: - From home, lives alone. Son lives nearby. - PT recommending inpatient rehab--> patient and son agreed, case management following (Vira Stiles, PAJobC) Reviewed: Pt Seen/Exam by , RAVEN Notes, Labs (Tiana Alaniz MD) History Physician Certified Professional Controller Supervision Note: I interviewed and examined the patient. Discussed with SELAM Stiles and agree with findings and plan as documented in the note. Any exceptions or clarifications are listed here: A-fib and NSR on monitor, rates increased now to mostly 70s now with lowered dose of metoprolol. Pain improved, no more headache, still some pain left humerus. No CP or SOB but remains on O2. Was OOB with PT today and required assistance, is requesting Rehab placement vs SNF now Vitals and tele reviewed NAD, obese Reg rhythm, esther with harsh 3/6 CANDY at RUSB Crackles at bases bilat, otherwise clear Abd soft, hernia ventrally is reducible and NT, +BS Ext trace pitting edema, +TTP over left humerus with FROM of left shoulder and elbow, wrist Skin: much improved edema perioral region, purple ecchymosis improving lip and periorally, large ecchymosis left humerus A/P: 72 yo female with likely mechanical fall with slow A-fib, elevated proBNP and mild CHF on CXR, Severe , elevated troponin but stable x 3 Diuresed for CHF but with slight rise in extrusion die corrector now to 2.5, d/c'd IV lasix and switch to po lasix today ECHO result reviewed with Dr. Renner, same as previous, with moderate reduced RV fxn and diastolic dysfunction. Head CT neg for acute disease but shows likely old CVA. CXR without fractures or PTX. -ok to transfer to medical floor -continue decreased dose of metoprolol to 100mg qAM and 50mg qPM -continue Xarelto for AC -pt now interested in consultation as outpatient for AV replacement -to be arranged by Cardiology in f/u -switch to po lasix 40mg (home dose) -Appreciate Cardiology recommendations Trauma, OA knees-severe Pain control, ice pack to face for swelling PT/OT consult recommending HH vs ?acute rehab?--> pt agreeable to rehab or SNF -recommend return to Ortho for possible viscous injections as outpatient -continue hydrocodone prn or tylenol -check left humerus xray PCP follows her for CLL-stable anemia and leukocytosis here at 25-28 for WBC, Hgb 8-9, plts normal CKD stage IV stable with slight increase extrusion die corrector 2.5 -renally dose meds -avoid nephrotoxins -follow as outpatient/at Rehab in 1 week Proph-Xarelto Dispo- DNR, to rehab or SNF Documented By: Tiana Alaniz (Tiana Alaniz MD)
[2017-01-10] MEDS ORDERED: FUROSEMIDE 40 MG TAB PO ONE (11:45)
--- NOTE | 2017-01-10 13:15 | DIAGNOSTIC IMAGING REPORT ---
LEFT HUMERUS 2 VIEWS HISTORY: fall, left humerus pain COMPARISON: None. FINDINGS: There is no fracture or dislocation. Soft tissues are unremarkable. The bones are osteopenic. IMPRESSION: No fracture or dislocation within the left humerus. Electronically signed by: Naveen Person M.D. 01/10/2017 1:13 PM Dictated Date/Time: 01/10/2017 1:12 PM
[2017-01-10] MEDS: CEFTRIAXONE SOD INJ 1 GM in DEXTROSE 5% ADD-VANTAGE 50ML 50 ML IV SCH (13:25)
[2017-01-10] MEDS: HYDROCODONE/ACETAMI 10/325 TAB PO PRN (16:42)
[2017-01-10] MEDS: METOPROLOL TARTRATE 50 MG TAB PO SCH (20:53)
[2017-01-10] MEDS: ATORVASTATIN 40 MG TAB PO SCH (20:53)
[2017-01-10] MEDS: ACETAMINOPHEN 325 MG TAB PO PRN (21:11)
[2017-01-11] MEDS: LEVOTHYROXINE 150 MCG TAB PO SCH (05:50)
[2017-01-11 06:53] LABS: HEMATOCRIT 29.7 % (37-47); MEAN CELL VOLUME 101.7 fL (80-100); MEAN CORPUSCULAR HEMOGLOBIN 31.2 pg (25-34); MEAN CORPUSCULAR HGB CONC 30.6 g/dl (32-36); PLATELET COUNT 225 K/uL (130-400); RED BLOOD COUNT 2.92 M/uL (4.2-5.4); WHITE BLOOD COUNT 19.59 K/uL (4.8-10.8)
[2017-01-11 07:14] LABS: CALCIUM 9.5 mg/dl (8.5-10.1); CREATININE 2.4 mg/dl (0.60-1.20)
[2017-01-11 07:24] VITALS: BP 120/51; PULSE 63; TEMP 36.9; O2SAT 96
[2017-01-11 07:54] LABS: BASO % 0.2 %; BASO ABS # 0.03 K/uL (0-0.2); COMPLETE YES; IG% 0.2 %; LYMPH % 66.4 %; MONO % 8.4 %; NEUT % 23.8 %; SMUDGE CELLS PRESENT; STOMATOCYTE 1+; TOXIC GRANULATION 1+
[2017-01-11] MEDS ORDERED: FUROSEMIDE 40 MG TAB PO SCH (08:00)
[2017-01-11] MEDS ORDERED: LOSARTAN POTASSIUM 25 MG TAB PO SCH (08:00)
[2017-01-11] MEDS: PANTOprazole SOD 40 MG TAB PO SCH (08:33)
[2017-01-11] MEDS: RIVAROXABAN TAB 15 MG TAB PO SCH (08:34)
[2017-01-11] MEDS: PAROXETINE 30 MG TAB PO SCH (08:34)
[2017-01-11] MEDS: METOPROLOL TARTRATE 100 MG TAB PO SCH (08:34)
[2017-01-11] MEDS: CALCITRIOL 0.25 MCG CAP PO SCH (08:34)
[2017-01-11] MEDS: ALLOPURINOL 100 MG TAB PO SCH (08:34)
[2017-01-11] MEDS: INSULIN ASPART 100 UNITS/ML 3 ML PEN SC SCH ×3 (08:40→18:02)
[2017-01-11] MEDS: HYDROCODONE/ACETAMI 10/325 TAB PO PRN (08:44)
[2017-01-11] MEDS ORDERED: SODIUM CHLORIDE 0.65% NA SOLN 45 ML (OCEAN) ONE (09:09)
[2017-01-11] MEDS ORDERED: SODIUM CHLORIDE 0.65% NA SOLN 45 ML (OCEAN) PRN (09:15)
[2017-01-11] MEDS ORDERED: TYL325X PO (09:37)
[2017-01-11] MEDS ORDERED: SALI0.6510 (09:37)
[2017-01-11] MEDS ORDERED: HYDR-4383 PO (09:37)
[2017-01-11] MEDS ORDERED: CEPH-571 PO (09:37)
[2017-01-11] MEDS ORDERED: METO50TA17 PO (09:37)
[2017-01-11] MEDS ORDERED: NVLGIPEN SC (09:37)
[2017-01-11] MEDS ORDERED: NVLNI SQ ×2 (09:37)
[2017-01-11] MEDS ORDERED: FURO40TA3 PO (09:37)
--- NOTE | 2017-01-11 10:09 | Discharge Instructions ---
Discharge Instructions Admission Reason for Admission: FALL, Bradycardia Discharge Discharge Diagnosis / Problem: Fall, bradycardia, A-fib, UTI,Severe Knee OA Discharge Goals Goal(s): Improve disease control, Diagnostic testing, Therapeutic intervention Activity Recommendations Activity Level: Assistance Required Therapies: Physical Therapy, Weight Bearing Status (Full), Occupational Therapy . Additional Information Patient informed of condition: Yes Advance Directives: Yes DNR: Yes Level of Care: Skilled Communicable Disease: No Prognosis: Stable Oxygen at (LPM): 2 LNC continuous and with CPAP qhs Petty Catheter: No Instructions / Follow-Up Instructions / Follow-Up 81 y/o female, with PMHx of CLL, Paroxysmal A-fib, chronic diastolic CHF, HTN, DMII, CKD- stage IV, depression/anxiety, hyperlipidemia, DEXTER on CPAP, hypothyroidism, and osteoarthritis, who presented to the ED because of a fall. Denies syncope/LOC but states that her knees were so stiff she fell forward and hit her head off the wall. She required laceration repair of the upper lip and sustained extensive bruising of the face, left arm, knees, and contusion to left ribs (w/o PTX) due to being on Xarelto for chronic anticoagulation. Fall- likely mechanical fall secondary to bradycardia, also with UTI and severe knee OA. Bradycardia is slow A-fib, and had elevated proBNP and mild CHF on CXR , Severe , elevated troponin but stable x 3 Diuresed for CHF but with slight rise in glass bender to peak of 2.5, d/c'd IV lasix and switch to po lasix at slightly higher than previous home dose ECHO result reviewed with Cardiology--> same as previous, with moderate reduced RV fxn and diastolic dysfunction. Head CT neg for acute disease but shows old CVA. CXR without fractures or PTX. Left humerus xray negative for fracture. Will need sutures removed from lip on 01/15/17. Acute on chronic Diastolic CHF/PAF with slow response, Severe : - Admitted tele - cardiac monitoring reviewed--> in/out of a.fib, bradycardia improved with lowering metoprolol dose - Trended cardiac enzymes- peaked at 0.068 --> demand ischemia secondary to LVH and severe - Consult cardiology, appreciate recommendations--> recommend increasing Furosemide to 80mg but with rise in glass bender after IV lasix, will only increase lasix to 60mg daily -Treated with IV Lasix 40 mg per cardiology due to fluid overload - decreased Metoprolol to 50 mg PO BID--> with improvement in bradycardia - Continue Xarelto 15 mg PO daily for CVA prevention despite mechanical fall as no recurrent falls and has previous CVA - Patient follows with Dr. Luque and should see him in 1-2 weeks to further discuss aortic valve repair UTI: - U/A abnormal, urine culture growing Klebsiella pneumoniae, sensitives reviewed - IV Rocephin given x 2 days -d/c on po keflex x 5 more days CLL: PCP follows her for CLL-stable anemia and leukocytosis here at 19-28 for WBC, Hgb 8-9, plts normal - Does not follow with oncology - Labs appear at baseline. Follow CBC T2DM: - BSG ACHS with sliding insulin scale here and glucose elevated -restart home NPH on discharge but at lower doses based on what was required here NPH-N 20 units qAM and 10 units qPM HTN:controlled - Continue Hyzaar, metoprolol, lasix Hyperlipidemia: - Continue Atorvastatin 40 mg PO daily CKD, stage IV: - Cr. 2.50 peak here, baseline around 2.0, day of dc was down to 2.4 -follow BMP in 1 week -has not seen Nephrology as outpatient, is managed by PCP GERD: -continue PPI Depression/anxiety: - Continue Paroxetine 30 mg PO daily - was on ativan at home but not required here and with h/o falls will discontinue it Osteoarthritis knees, ambulatory dysfunction- - was on Ultram 50 mg PO q6hrs PRN and [place] 1-2 tablets PO q12 hrs PRN at home but here only taking [place] prn -d/c home tramadol and only give [place] prn -f/u with [facility] for viscosupplementation injections as discussed previously Hypothyroidism: - Continue Synthroid 150 mcg PO daily DEXTER: - CPAP HS DVT prophylaxis: - Xarelto Code Status: - DNR/DNI Dispo: - From home, lives alone. Son lives nearby. - PT recommending inpatient rehab--> patient and son agreed, to [facility] today Current Hospital Diet Patient's current hospital diet: AHA Diet (Heart Healthy), Diabetes Type 2 Diet Discharge Diet Recommended Diet: AHA Diet (Heart Healthy), Low Sodium Diet (2gm Na), Diabetes Type 2 Diet Fluid Restriction: 1800 ml (7 cups) Procedures Procedures Performed: ECHO Head CT Chest Xray Left humerus Xray Upper lip laceration repair Pending Studies Studies pending at discharge: no Physician Orders On Transfer Special Precautions: Fall precautions Dressing Changes: N/A IV Therapy: N/A Vital Signs: Routine Weigh: Routine Additional Orders: Follow up with Cardiology Dr. Luque in 1-2 weeks for severe aortic stenosis. Follow up with [facility] in 2 weeks for severe OA knees to inquire about knee injections. Check BMP in 1 week. Remove sutures from upper lip on approximately 01/15/17. Follow up with PCP within 1 week after discharge to home. POLST Discussion: Not Applicable Laboratory Results Last 24 Hours Test 01/10/17 11:51 01/10/17 16:27 01/10/17 20:48 01/11/17 02:29 Bedside Glucose 233 mg/dl 238 mg/dl 217 mg/dl 203 mg/dl Test 01/11/17 06:32 01/11/17 07:16 White Blood Count 19.59 K/uL Red Blood Count 2.92 M/uL Hemoglobin 9.1 g/dL Hematocrit 29.7 % Mean Corpuscular Volume 101.7 fL Mean Corpuscular Hemoglobin 31.2 pg Mean Corpuscular Hemoglobin Concent 30.6 g/dl Platelet Count 225 K/uL Mean Platelet Volume 9.0 fL Neutrophils (%) (Auto) 23.8 % Lymphocytes (%) (Auto) 66.4 % Monocytes (%) (Auto) 8.4 % Eosinophils (%) (Auto) 1.0 % Basophils (%) (Auto) 0.2 % Neutrophils # (Auto) 4.68 K/uL Lymphocytes # (Auto) 13.00 K/uL Monocytes # (Auto) 1.65 K/uL Eosinophils # (Auto) 0.20 K/uL Basophils # (Auto) 0.03 K/uL RDW Standard Deviation 54.8 fL RDW Coefficient of Variation 14.8 % Immature Granulocyte % (Auto) 0.2 % Immature Granulocyte # (Auto) 0.03 K/uL Smudge Cells PRESENT Toxic Granulation 1+ Stomatocytes 1+ Sodium Level 142 mmol/L Potassium Level 4.0 mmol/L Chloride Level 103 mmol/L Carbon Dioxide Level 28 mmol/L Anion Gap 11.0 mmol/L Blood Urea Nitrogen 58 mg/dl Creatinine 2.40 mg/dl Est Creatinine Clear Calc Drug Dose 23.9 ml/min Estimated GFR () 21.5 Estimated GFR (Non- 18.6 BUN/Creatinine Ratio 24.0 Random Glucose 223 mg/dl Calcium Level 9.5 mg/dl Magnesium Level 2.0 mg/dl Bedside Glucose 213 mg/dl Medical Emergencies . Who to Call and When: Medical Emergencies: If at any time you feel your situation is an emergency, please call 911 immediately. . Non-Emergent Contact Non-Emergency issues call your: Primary Care Provider . . "Provider Documentation" section prepared by Tiana Alaniz. Core Measure Problem Core Measures: None
[2017-01-11 10:28] VITALS: BP 120/51; PULSE 63; TEMP 36.9; O2SAT 96
[2017-01-11] MEDS: ACETAMINOPHEN 325 MG TAB PO PRN (11:27)
[2017-01-11] MEDS: CEFTRIAXONE SOD INJ 1 GM in DEXTROSE 5% ADD-VANTAGE 50ML 50 ML IV SCH (14:28)
[2017-01-11 14:38] VITALS: BP 107/56; PULSE 61; TEMP 36.7; O2SAT 95
--- NOTE | 2017-01-11 21:37 | Discharge Summary ---
Discharge Summary Admission Date: Jan 08, 2017 at 08:23 Discharge Date: Jan 11, 2017 Discharge Disposition: group home facility Principal Diagnosis: Fall, Atrial fibrillation with bradycardia, UTI, Severe Aortic stenosis Problems/Secondary Diagnoses: CLL Paroxysmal A-fib Acute on Chronic diastolic CHF HTN DMII CKD stage IV Depression/anxiety Hyperlipidemia DEXTER on CPAP Hypothyroidism Osteoarthritis Severe Demand ischemia Moderately reduced RV fxn Previous CVA (on head CT) Lip laceration UTI CLL Anemia GERD Depression/anxiety Immunizations: Have You Had Influenza Vaccine: Yes Influenza Vaccine Date: Aug 26, 2006 History of Tetanus Vaccine?: Yes History of Pneumococcal: Yes History of Hepatitis B Vaccine: No Procedures: CT OF THE HEAD WITHOUT CONTRAST CLINICAL HISTORY: Fall with head injury. Anticoagulation COMPARISON STUDY: Head CT August 25, 2013. CT DOSE: 614.27 mGy.cm TECHNIQUE: Helical axial images of the head were obtained without IV contrast. Automated exposure control was utilized for the study. FINDINGS: No acute intracranial hemorrhage, midline shift or mass effect is present. A small area of encephalomalacia within the right frontal lobe is new since head CT of August 25, 2013 but is chronic. Ventricular system is stable. The basilar cisterns are patent. There are no extra-axial collections. There are no findings to suggest acute dural sinus thrombosis or acute territorial infarct. There is mild mucosal thickening of the sphenoid sinuses. No calvarial fracture is identified. IMPRESSION: 1. No acute intracranial findings. 2. No calvarial fracture. 3. Old right frontal lobe infarct. CHEST ONE VIEW PORTABLE CLINICAL HISTORY: Fall. COMPARISON STUDY: Chest radiograph April 12, 2015. FINDINGS: There is no pneumothorax or pleural effusion. Elevation/eventration of the right hemidiaphragm is unchanged. Moderate to marked cardiomegaly is unchanged. There is pulmonary vascular congestion without overt pulmonary edema. There is no lobar consolidation. IMPRESSION: 1. Stable cardiomegaly with pulmonary vascular congestion. No overt pulmonary edema. 2. No pneumothorax. LEFT HUMERUS 2 VIEWS HISTORY: fall, left humerus pain COMPARISON: None. FINDINGS: There is no fracture or dislocation. Soft tissues are unremarkable. The bones are osteopenic. IMPRESSION: No fracture or dislocation within the left humerus. ECHO: * Normal left ventricular size and systolic function. * Moderate concentric left ventricular hypertrophy. * Left ventricular diastolic dysfunction. * Mild biatrial dilatation. * Severe calcific aortic stenosis. * Trace aortic regurgitation. * Mild mitral regurgitation. * Mild to moderate tricuspid regurgitation. * Mild pulmonic regurgitation. * Moderately decreased right ventricular systolic function. * Right ventricular pressure and volume overload. * Mildly elevated right ventricular systolic pressure. Consultations: Cardiology Medication Reconciliation New Medications: Cephalexin (Keflex) 500 Mg Cap 1 CAP PO BID for 5 Days, CAP Acetaminophen (Tylenol) 325 Mg Tab 650 MG PO Q4H PRN for Pain or Fever for 30 Days, #240 TAB Insulin Aspart (Novolog Flexpen) 100 Units/Ml Inj 0 UNITS SC ACHS for 30 Days Metoprolol Tartrate (Metoprolol Tartrate) 50 Mg Tab 50 MG PO BID for 30 Days, TAB Saline ([place] Nasal [place]) 0.65 % Spr 2 SPRAYS NA TID PRN for nasal congestion for 30 Days Changed Medications: Furosemide (Lasix) 40 Mg Tab 60 MG PO DAILY for 30 Days, TAB (Changed from: 40 MG) Hydrocodone/Acetaminophen ([place] 10/325 Tab) 1 Tab Tab 1 TAB PO Q12 PRN for Pain, #6 (Changed from: 1-2 TAB) Insulin Human NPH (Novolin N) 100 Units/Ml Susp 20 UNITS SQ QAM for 30 Days (Changed from: 65 UNITS) TAKE WITH BREAKFAST Insulin Human NPH (Novolin N) 100 Units/Ml Susp 10 UNITS SQ QPM for 30 Days (Changed from: 35 UNITS) TAKE WITH SUPPER Continued Medications: Allopurinol (Zyloprim) 100 Mg Tab 100 MG PO DAILY, TAB Atorvastatin (Lipitor) 40 Mg Tab 40 MG PO HS, TAB Calcitriol (Rocaltrol Cap) 0.25 Mcg Cap 0.25 MCG PO DAILY, 0 Refills Esomeprazole Magnesium (Nexium) 40 Mg Capcr 40 MG PO DAILY, 0 Refills Hctz/Losartan (Hyzaar 12.5MG/50MG) Tab 1 TAB PO DAILY, TAB Levothyroxine Sodium (Levothyroxine Sodium) 150 Mcg Tab 1 TAB PO DAILY for 90 Days, #90 TAB 3 Refills Paroxetine HCl (Paroxetine) 30 Mg Tab 30 MG PO DAILY Rivaroxaban (Xarelto) 15 Mg Tab 15 MG PO DAILY Discontinued Medications: Insulin Human Regular (Novolin R) 1 Ea Ea SQ ACHS SLIDING SCALE Lorazepam (Lorazepam) 1 Mg Tab 1 MG PO DAILY PRN for Anxiety Metoprolol Tartrate (Lopressor) (Lopressor) 100 Mg Tab 100 MG PO BID Tramadol (Ultram) 50 Mg Tab 50 MG PO Q6 PRN for Pain, TAB Referrals At Discharge Follow up Referrals: [facility] Referral - Within 1-2 Weeks with Justin Luque M.D. Physician Referral - Within 1 Week with Joesph Horan M.D. Discharge Exam Physical Exam: Vitals and tele reviewed NAD, obese Reg rhythm, esther with harsh 3/6 CANDY at RUSB Crackles at bases bilat, otherwise clear Abd soft, hernia ventrally is reducible and NT, +BS Ext trace pitting edema, +TTP over left humerus with FROM of left shoulder and elbow, wrist Skin: much improved edema perioral region, purple ecchymosis improving lip and periorally, large ecchymosis left humerus Review of Systems: Constitutional: No fever Eyes: No problem reported ENT: No problem reported Respiratory: No shortness of breath Cardiovascular: No chest pain Abdomen: No pain Musculoskeletal: + joint pain (knees, left upper arm) Genitourinary - Female: No problem reported Neurologic: + weakness (in legs) Psychiatric: No problem reported Endocrine: No problem reported Hematologic / Lymphatic: No problem reported Integumentary: No problem reported Hospital Course 81 y/o female, with PMHx of CLL, Paroxysmal A-fib, chronic diastolic CHF, HTN, DMII, CKD- stage IV, depression/anxiety, hyperlipidemia, DEXTER on CPAP, hypothyroidism, and osteoarthritis, who presented to the ED because of a fall. Denies syncope/LOC but states that her knees were so stiff she fell forward and hit her head off the wall. She required laceration repair of the upper lip and sustained extensive bruising of the face, left arm, knees, and contusion to left ribs (w/o PTX) due to being on Xarelto for chronic anticoagulation. Fall- likely mechanical fall secondary to bradycardia, also with UTI and severe knee OA. Bradycardia is slow A-fib, and had elevated proBNP and mild CHF on CXR , Severe , elevated troponin but stable x 3 Diuresed for CHF but with slight rise in receiving dock checker to peak of 2.5, d/c'd IV lasix and switch to po lasix at slightly higher than previous home dose ECHO result reviewed with Cardiology--> same as previous, with moderate reduced RV fxn and diastolic dysfunction. Head CT neg for acute disease but shows old CVA. CXR without fractures or PTX. Left humerus xray negative for fracture. Will need sutures removed from lip on 01/15/17. Acute on chronic Diastolic CHF/PAF with slow response, Severe : - Admitted tele - cardiac monitoring reviewed--> in/out of a.fib, bradycardia improved with lowering metoprolol dose - Trended cardiac enzymes- peaked at 0.068 --> demand ischemia secondary to LVH and severe - Consult cardiology, appreciate recommendations--> recommend increasing Furosemide to 80mg but with rise in receiving dock checker after IV lasix, will only increase lasix to 60mg daily -Treated with IV Lasix 40 mg per cardiology due to fluid overload - decreased Metoprolol to 50 mg PO BID--> with improvement in bradycardia - Continue Xarelto 15 mg PO daily for CVA prevention despite mechanical fall as no recurrent falls and has previous CVA - Patient follows with Dr. Luque and should see him in 1-2 weeks to further discuss aortic valve repair UTI: - U/A abnormal, urine culture growing Klebsiella pneumoniae, sensitives reviewed - IV Rocephin given x 2 days -d/c on po keflex x 5 more days CLL: PCP follows her for CLL-stable anemia and leukocytosis here at 19-28 for WBC, Hgb 8-9, plts normal - Does not follow with oncology - Labs appear at baseline. Follow CBC T2DM: - BSG ACHS with sliding insulin scale here and glucose elevated -restart home NPH on discharge but at lower doses based on what was required here NPH-N 20 units qAM and 10 units qPM HTN:controlled - Continue Hyzaar, metoprolol, lasix Hyperlipidemia: - Continue Atorvastatin 40 mg PO daily CKD, stage IV: - Cr. 2.50 peak here, baseline around 2.0, day of dc was down to 2.4 -follow BMP in 1 week -has not seen Nephrology as outpatient, is managed by PCP GERD: -continue PPI Depression/anxiety: - Continue Paroxetine 30 mg PO daily - was on ativan at home but not required here and with h/o falls will discontinue it Osteoarthritis knees, ambulatory dysfunction- - was on Ultram 50 mg PO q6hrs PRN and [place] 1-2 tablets PO q12 hrs PRN at home but here only taking [place] prn -d/c home tramadol and only give [place] prn -f/u with [facility] for viscosupplementation injections as discussed previously Hypothyroidism: - Continue Synthroid 150 mcg PO daily DEXTER: - CPAP HS DVT prophylaxis: - Xarelto Code Status: - DNR/DNI Dispo: - From home, lives alone. Son lives nearby. - PT recommending inpatient rehab--> patient and son agreed, to [facility] today Total Time Spent: Greater than 30 minutes This includes examination of the patient, discharge planning, medication reconciliation, and communication with other providers. Discharge Instructions Please refer to the electronic Patient Visit Report (Discharge Instructions) for additional information. Follow-Up PCP 1 week Cardiology 1-2 weeks Ortho in 2 weeks Additional Copies To Joesph Horan M.D.; Justin Luque M.D.
== END 2017-01-11 20:15 ==
LOC: ENRESERVTM → ENRESERVDT → EDBD 05:04 → C.EDB 05:05 → C.2T 08:23 → EDBEDREQ 09:02 → C.4E 01-10 13:41
PROVIDERS: ADMIT Family Medicine; ATTEND Family Medicine
DX: I48.0 Paroxysmal atrial fibrillation (principal); R00.1 Bradycardia, unspecified; S01.511A Laceration without foreign body of lip, initial encounter; W19.XXXA Unspecified fall, initial encounter; C91.10 Chronic lymphocytic leukemia of B-cell type not having achieved remission; E03.9 Hypothyroidism, unspecified; M85.80 Other specified disorders of bone density and structure, unspecified site; K43.9 Ventral hernia without obstruction or gangrene; K21.9 Gastro-esophageal reflux disease without esophagitis; E78.5 Hyperlipidemia, unspecified; I24.8 Other forms of acute ischemic heart disease; G47.33 Obstructive sleep apnea (adult) (pediatric); E11.9 Type 2 diabetes mellitus without complications; R26.9 Unspecified abnormalities of gait and mobility; N18.4 Chronic kidney disease, stage 4 (severe); I12.9 Hypertensive chronic kidney disease with stage 1 through stage 4 chronic kidney disease, or unspecified chronic kidney disease; I50.33 Acute on chronic diastolic (congestive) heart failure; N39.0 Urinary tract infection, site not specified; I08.2 Rheumatic disorders of both aortic and tricuspid valves; M17.0 Bilateral primary osteoarthritis of knee; Z66 Do not resuscitate; Z79.4 Long term (current) use of insulin; Z86.73 Personal history of transient ischemic attack (TIA), and cerebral infarction without residual deficits; Z79.01 Long term (current) use of anticoagulants; Z82.49 Family history of ischemic heart disease and other diseases of the circulatory system; Z80.0 Family history of malignant neoplasm of digestive organs; Z80.3 Family history of malignant neoplasm of breast; Z80.41 Family history of malignant neoplasm of ovary

== ENCOUNTER → 2017-02-13 | Outpatient (CLI) | payer OTHER ==
[~2017-02-13] MED LIST changes: +ALLO100T PO; -CALCTAB36 PO; -CMD5 PO; -CPR500 PO; +FRS/40 PO; -GEMF600T3 PO; +HYDR-4383 PO; -HYDR1TAB2 PO; +HYZ/50125 PO; -INSU1INJ16; -LEVO100T7 PO; +LEVO150T9 PO; -MCRK20 PO; +METO100T14 PO; +METO50TA17 PO; +MTR500 PO; -MULT-190 PO; -MULTTAB58 PO; +NVLGIPEN SC; -NVLNI SC; +NVLNI SQ; -PARO1TAB27 PO; +PARO30TA3 PO; +RMR15 PO; +SALI0.6510; -TPRSR50 PO; +TRAM-10 PO; +TYL325X PO; +XRL15 PO
== END | disposition home or self-care (01) ==
LOC: C.LABSPEC 17:00
PROVIDERS: ATTEND Internal Medicine
DX: I10 Essential (primary) hypertension (principal); D64.9 Anemia, unspecified; C91.10 Chronic lymphocytic leukemia of B-cell type not having achieved remission; E03.9 Hypothyroidism, unspecified; E11.65 Type 2 diabetes mellitus with hyperglycemia; E83.42 Hypomagnesemia; R19.7 Diarrhea, unspecified; E11.22 Type 2 diabetes mellitus with diabetic chronic kidney disease

== ENCOUNTER → 2017-02-14 | Outpatient (CLI) | payer OTHER ==
[2017-02-14 12:48] LABS: HEMATOCRIT 32.5 % (37-47); MEAN CELL VOLUME 101.9 fL (80-100); MEAN CORPUSCULAR HEMOGLOBIN 32.6 pg (25-34); PLATELET COUNT 390 K/uL (130-400); RED BLOOD COUNT 3.19 M/uL (4.2-5.4); WHITE BLOOD COUNT 15.48 K/uL (4.8-10.8)
[2017-02-14 13:03] LABS: BLOOD UREA NITROGEN 64 mg/dl (7-18); BUN/CREATININE RATIO 25.5 (10-20); CALCIUM 9.8 mg/dl (8.5-10.1); CARBON DIOXIDE 25 mmol/L (21-32); CHLORIDE 108 mmol/L (98-107); CHOLESTEROL 207 mg/dl (0-200); GLUCOSE 148 mg/dl (70-99); MAGNESIUM 1.7 mg/dl (1.8-2.4); POTASSIUM 3.9 mmol/L (3.5-5.1); SODIUM 143 mmol/L (136-145); TRIGLYCERIDES 201 mg/dl (0-150); VERY LOW DENSITY LIPOPROT CALC 40 mg/dl
[2017-02-14 13:13] LABS: ALB/GLOB RATIO 0.9 (0.9-2); ALKALINE PHOSPHATASE 153 U/L (45-117); ALT/SGPT 9 U/L (12-78); AST/SGOT 14 U/L (15-37); CHOLESTEROL/HDL RATIO 4.7; HDL CHOLESTEROL 44 mg/dl; LDL CHOLESTEROL CALCULATED 123 mg/dl; THYROID STIMULATING HORMONE 0.265 uIu/ml (0.300-4.500)
[2017-02-14 13:29] LABS: ESTIMATED AVERAGE GLUCOSE 140 mg/dl; HA1C FLAG Normal (Normal)
[2017-02-14 14:21] LABS: BASO % 0.2 %; BASO ABS # 0.03 K/uL (0-0.2); COMPLETE YES; EOS % 1.3 %; IG% 0.1 %; LYMPH % 63.2 %; LYMPH ABS # 9.79 K/uL (1.2-3.4); MONO % 7.4 %; NEUT % 27.8 %
[2017-02-14 14:26] LABS: SMUDGE CELLS PRESENT; STOMATOCYTE 1+
== END | disposition home or self-care (01) ==
LOC: C.LABBFT 10:47
PROVIDERS: ATTEND Internal Medicine
DX: E03.9 Hypothyroidism, unspecified (principal); C91.10 Chronic lymphocytic leukemia of B-cell type not having achieved remission; E11.29 Type 2 diabetes mellitus with other diabetic kidney complication; I12.9 Hypertensive chronic kidney disease with stage 1 through stage 4 chronic kidney disease, or unspecified chronic kidney disease; D64.9 Anemia, unspecified; E11.65 Type 2 diabetes mellitus with hyperglycemia; E83.42 Hypomagnesemia; R19.7 Diarrhea, unspecified; E11.22 Type 2 diabetes mellitus with diabetic chronic kidney disease; N18.4 Chronic kidney disease, stage 4 (severe)

== ENCOUNTER 2017-02-24 18:07 | Inpatient (IN) | payer OTHER ==
[~2017-02-24] VITALS: Ht 165.1 cm; Wt 114.6 kg
[2017-02-24] MEDS: INSULIN ASPART 100 UNITS/ML 3 ML PEN SC SCH ×2 (11:00→21:00)
[~2017-02-24 18:07] MED LIST changes: -ATV/1 PO; -FRS/40 PO; -METO100T14 PO; -MGNO400 PO; -MTR500 PO; -RMR15 PO; -TRAM-10 PO
--- NOTE | 2017-02-24 18:18 | EMERGENCY ROOM VISIT NOTE ---
History Report prepared by Jose Francisco: Sridevi Mcbride Under the Supervision of: Dr. Geoffrey Flores M.D. First contact with patient: 18:09 Stated Complaint: WEAKNESS/ UNABLE TO WALK & VOID History of Present Illness The patient is a 81 year old female who presents to the Emergency Room with complaints of worsening generalized weakness beginning a few days prior to arrival. The patient arrives EMS. Per nursing staff, she was discharged on February 14 with a UTI. Since then she has been experiencing weakness and has been unable to walk. She is also experiencing a decrease in urination. The patient is a diabetic. She uses a CPAP at home. Source of History: nursing staff Onset: few days SPONSORSHIP COORDINATOR Position: other (global) Quality: other (generalized weakness) Timing: worsening Associated Symptoms: + diarrhea (decreased urination) Note: Patient has been unable to walk. She is a diabetic. Review of Systems See HPI for pertinent positives & negatives. A total of 10 systems reviewed and were otherwise negative. Past Medical & Surgical Medical Problems: (1) Acute on chronic renal insufficiency (2) Aortic stenosis (3) Chronic lymphocytic leukemia (CLL), B-cell (4) Congestive heart failure (5) Controlled atrial fibrillation (6) CORONARY ATHEROSCLEROSIS OF [place] CORONARY VESSEL (7) DIAB TRELL WO COMPL, TYPE II OR UNSPEC TYPE, UNCONTROLLED (8) Fall (9) MALIG SAMMIE CORPUS UTERI (10) Pneumonia (11) SOB (shortness of breath) Family History Patient reports no known family medical history. Social History Smoking Status: Never Smoker Drug Use: none Marital Status: Housing Status: lives with family Occupation Status: retired Current/Historical Medications Scheduled Allopurinol (Zyloprim), 100 MG PO DAILY Atorvastatin (Lipitor), 40 MG PO HS Calcitriol (Rocaltrol Cap), 0.25 MCG PO DAILY Esomeprazole Magnesium (Nexium), 40 MG PO DAILY Furosemide (Lasix), 40 MG PO DAILY Hctz/Losartan (Hyzaar 12.5MG/50MG), 1 TAB PO DAILY Insulin Aspart (Novolog Flexpen), 0 UNITS SC ACHS Insulin Human NPH (Novolin N), 20 UNITS SQ QAM Insulin Human NPH (Novolin N), 10 UNITS SQ QPM Levothyroxine Sodium (Levothyroxine Sodium), 1 TAB PO DAILY Metoprolol Tartrate (Lopressor) (Lopressor), 100 MG PO BID Metronidazole (Metronidazole), 500 MG PO TID Mirtazapine (Mirtazapine), 15 MG PO HS Paroxetine HCl (Paroxetine), 30 MG PO DAILY Rivaroxaban (Xarelto), 15 MG PO DAILY Scheduled PRN Hydrocodone/Acetaminophen ([place] 10/325 Tab), 1 TAB PO Q12 PRN for Pain Lorazepam (Ativan), 1 MG PO DAILY PRN for Anxiety Tramadol (Ultram), 50 MG PO Q6 PRN for Pain Allergies Coded Allergies: Aspirin (Verified Adverse Reaction, Unknown, INTOLERANT-HX GI BLEED, ) Physical Exam Vital Signs Date Time Temp Pulse Resp B/P Pulse Ox O2 Delivery O2 Flow Rate FiO2 02/24/17 21:57 62 20 119/72 94 Room Air 02/24/17 19:59 60 124/67 152/70 02/24/17 18:27 94 Nasal Cannula 4.0 02/24/17 18:27 94 Nasal Cannula 4.0 02/24/17 18:21 59 02/24/17 18:19 36.8 58 18 130/76 95 Nasal Cannula 4.0 Physical Exam GENERAL: Patient is a healthy-appearing well-nourished HEAD: Normocephalic atraumatic EYES: Ocular movements intact pupils equal and react to light OROPHARYNX mucous membranes are moist no exudates present no erythema or edema present NECK: Supple no nuchal rigidity CHEST: Good equal expansion LUNGS: Clear and equal to auscultation CARDIAC: Normal S1 and S2 ABDOMEN: Soft nontender no guarding BACK: No CVA tenderness EXTREMITIES: No pain upon palpation normal muscle strength in all groups no clubbing cyanosis or edema NEURO: Patient is following commands is answering questions appropriately. Alert and oriented x3 Cranial Nerves 2-12 grossly intact Medical Decision & Procedures ER Provider Diagnostic Interpretation: Radiology results as stated below per my review and radiologist interpretation: CT OF THE HEAD WITHOUT CONTRAST CLINICAL HISTORY: Altered mental status. COMPARISON STUDY: Head CT January 08, 2017 CT DOSE: 601.98 mGy.cm TECHNIQUE: Helical axial images of the head were obtained without IV contrast. Automated exposure control was utilized for the study. FINDINGS: No acute intracranial hemorrhage, midline shift or mass effect is present. Ventricular system is stable. Basilar cisterns are patent. There are no extra-axial collections. 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 There are no findings to suggest acute dural sinus thrombosis or acute territorial infarct. There are several opacified left mastoid air cells. There are minimal layering secretions within the right sphenoid sinus. There is no calvarial fracture. IMPRESSION: 1. No acute intracranial findings. 2. Old right frontal lobe infarct. Electronically signed by: Nelson Benito M.D. 02/24/2017 7:44 PM Dictated Date/Time: 02/24/2017 7:39 PM CHEST ONE VIEW PORTABLE CLINICAL HISTORY: Generalized weakness. COMPARISON STUDY: Chest radiograph January 08, 2017. FINDINGS: This exam is compromised by suboptimal penetration. No pneumothorax or pleural effusion is present. There is no lobar consolidation. Moderate cardiomegaly is unchanged. There is stable pulmonary vascular congestion without overt pulmonary edema. IMPRESSION: No change in appearance of the chest. Cardiomegaly with pulmonary vascular congestion. Electronically signed by: Nelson Benito M.D. 02/24/2017 7:39 PM Dictated Date/Time: 02/24/2017 7:37 PM Laboratory Results Test 02/24/17 19:02 02/24/17 19:50 Anisocytosis PRESENT Total Bilirubin 0.4 mg/dl (0.2-1) Direct Bilirubin 0.1 mg/dl (0-0.2) Aspartate Amino Transf (AST/SGOT) 16 U/L (15-37) Alanine Aminotransferase (ALT/SGPT) 11 U/L (12-78) Alkaline Phosphatase 156 U/L (45-117) Total Protein 7.0 gm/dl (6.4-8.2) Albumin 3.3 gm/dl (3.4-5.0) Thyroid Stimulating Hormone (TSH) 1.010 uIu/ml (0.300-4.500) Urine Color YELLOW Urine Appearance CLEAR (CLEAR) Urine pH 5.0 (4.5-7.5) Urine Specific [place] 1.016 (1.000-1.030) Urine Protein TRACE (NEG) Urine Glucose (UA) NEG (NEG) Urine Ketones NEG (NEG) Urine Occult Blood NEG (NEG) Urine Nitrite NEG (NEG) Urine Bilirubin NEG (NEG) Urine Urobilinogen NEG (NEG) Urine Leukocyte Esterase NEG (NEG) Urine WBC (Auto) 0 /hpf (0-5) Urine RBC (Auto) 0-4 /hpf (0-4) Urine Hyaline Casts (Auto) 1-5 /lpf (0-5) Urine Epithelial Cells (Auto) 0-5 /lpf (0-5) Urine Bacteria (Auto) NEG (NEG) Labs reviewed by ED physician. Medications Administered Medications (Trade) Dose Ordered Sig/Yina Route Start Time Stop Time Status Last Admin Dose Admin Sodium Chloride (Nss 500ml) 500 ml @ 999 mls/hr Q31M STAT IV 02/24/17 18:23 02/24/17 18:53 DC 02/24/17 19:47 999 MLS/HR Acetaminophen/ Hydrocodone Bitart ([place] 10/325 Tab) 1 tab Q12H PRN PO 02/24/17 21:45 03/10/17 21:44 02/25/17 06:18 1 TAB Lorazepam (Ativan Tab) 1 mg DAILY PRN PO 02/24/17 21:45 03/26/17 21:44 02/24/17 23:39 1 MG Insulin Aspart SLIDING SCALE If C... ACHS SC 02/24/17 00:00 03/26/17 00:00 02/25/17 08:06 5 UNITS Sodium Chloride (Nss 1000ml) 1,000 ml @ 75 mls/hr [id number] IV 02/24/17 21:45 03/26/17 21:44 02/25/17 12:22 75 MLS/HR ECG Indication: weakness Rate (beats per minute): 65 Rhythm: other (wide QRS) Findings: RBBB, no acute ischemic change, no ectopy ED Course 1812: Past medical records reviewed. The patient was evaluated in room B12. A complete history and physical examination was performed. 1823: Sodium Chloride 500 ml @ 999 mls/hr IV. 2017: I discussed the patient's case with Dr. Maria Del Carmen [facility] [place], he has agreed to evaluate the patient for further management and care. Medical Decision The patient is a 81 year old female who presents to the ED with complaints of generalized weakness. Differential diagnosis: Etiologies such as metabolic, infection, hypo/hyperglycemia, electrolyte abnormalities, cardiac sources, intracerebral event, toxicologic, neurologic, as well as others were entertained. This is a 81-year-old female who presents emergency department complaining of generalized weakness along with a number of falls since being discharged from the hospital. The patient has a history of chronic renal failure appears to be dehydrated along with acute on chronic renal failure. She was given normal saline bolus in the emergency department. I did discuss the case with the hospitalist service who agreed to admit the patient. Patient family were in agreement with the treatment plan. Consults Time Called: 2014 Consulting Physician: Dr. Maria Del Carmen MANSFIELD Returned Call: 2016 I discussed the patient's case with Dr. Maria Del Carmen MANSFIELD, he has agreed to evaluate the patient for further management and care. Impression Primary Impression: Dehydration Scribe Attestation The scribe's documentation has been prepared under my direction and personally reviewed by me in its entirety. I confirm that the note above accurately reflects all work, treatment, procedures, and medical decision making performed by me. Departure Information Dispostion Being Evaluated By Hospitalist Referrals Joesph Horan M.D. (PCP)
[2017-02-24] MEDS ORDERED: SODIUM CHLORIDE 0.9% 500ML 500 ML IV STA (18:23)
[2017-02-24 19:10] LABS: MEAN CELL VOLUME 98.3 fL (80-100); MEAN CORPUSCULAR HEMOGLOBIN 31.2 pg (25-34); MEAN CORPUSCULAR HGB CONC 31.7 g/dl (32-36); MEAN PLATELET VOLUME 9.6 fL (7.4-10.4); PLATELET COUNT 321 K/uL (130-400); RED BLOOD COUNT 2.95 M/uL (4.2-5.4); WHITE BLOOD COUNT 16.09 K/uL (4.8-10.8)
[2017-02-24 19:29] LABS: BUN/CREATININE RATIO 20.9 (10-20); CALCIUM 9.2 mg/dl (8.5-10.1); CREATININE 3.7 mg/dl (0.60-1.20); POTASSIUM 4.6 mmol/L (3.5-5.1)
[2017-02-24 19:40] LABS: CKMB/CK RATIO 7.1 (0-3.0); THYROID STIMULATING HORMONE 1.01 uIu/ml (0.300-4.500)
--- NOTE | 2017-02-24 19:40 | DIAGNOSTIC IMAGING REPORT ---
CHEST ONE VIEW PORTABLE CLINICAL HISTORY: Generalized weakness. COMPARISON STUDY: Chest radiograph January 08, 2017. FINDINGS: This exam is compromised by suboptimal penetration. No pneumothorax or pleural effusion is present. There is no lobar consolidation. Moderate cardiomegaly is unchanged. There is stable pulmonary vascular congestion without overt pulmonary edema. IMPRESSION: No change in appearance of the chest. Cardiomegaly with pulmonary vascular congestion. Electronically signed by: Nelson Benito M.D. 02/24/2017 7:39 PM Dictated Date/Time: 02/24/2017 7:37 PM
--- NOTE | 2017-02-24 19:45 | DIAGNOSTIC IMAGING REPORT ---
CT OF THE HEAD WITHOUT CONTRAST CLINICAL HISTORY: Altered mental status. COMPARISON STUDY: Head CT January 08, 2017 CT DOSE: 601.98 mGy.cm TECHNIQUE: Helical axial images of the head were obtained without IV contrast. Automated exposure control was utilized for the study. FINDINGS: No acute intracranial hemorrhage, midline shift or mass effect is present. Ventricular system is stable. Basilar cisterns are patent. There are no extra-axial collections. 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 There are no findings to suggest acute dural sinus thrombosis or acute territorial infarct. There are several opacified left mastoid air cells. There are minimal layering secretions within the right sphenoid sinus. There is no calvarial fracture. IMPRESSION: 1. No acute intracranial findings. 2. Old right frontal lobe infarct. Electronically signed by: Nelson Benito M.D. 02/24/2017 7:44 PM Dictated Date/Time: 02/24/2017 7:39 PM
[2017-02-24 19:51] LABS: ANISOCYTOSIS PRESENT; BASO % 0.2 %; BASO ABS # 0.03 K/uL (0-0.2); COMPLETE YES; EOS % 0.6 %; IG% 0.1 %; LYMPH % 64.3 %; LYMPH ABS # 10.35 K/uL (1.2-3.4); MONO % 8.8 %; POLYCHROMASIA 1+; SMUDGE CELLS PRESENT
[2017-02-24] MEDS ORDERED: RMR15 PO (19:58)
[2017-02-24] MEDS ORDERED: METO100T14 PO (19:58)
[2017-02-24] MEDS ORDERED: MTR500 PO (19:58)
[2017-02-24] MEDS ORDERED: FRS/40 PO (19:58)
[2017-02-24] MEDS ORDERED: TRAM-10 PO (19:58)
[2017-02-24] MEDS ORDERED: HYZ/50125 PO (19:58)
[2017-02-24] MEDS ORDERED: ATV/1 PO (19:58)
[2017-02-24 20:05] LABS: URINE APPEARANCE CLEAR (CLEAR); URINE BILIRUBIN NEG (NEG); URINE COLOR YELLOW; URINE EPITHELIAL CELL AUTO 0-5 /lpf (0-5); URINE NITRITE NEG (NEG); URINE SPECIFIC GRAVITY 1.016 (1.000-1.030); UROBILINOGEN NEG (NEG)
[2017-02-24 20:08] LABS: MANUAL MICROSCOPIC REQUIRED? NO; REVIEW REQ? NO
[2017-02-24] MEDS ORDERED: ONDANSETRON INJ 2 MG/ML 2 ML VIAL IV PRN (21:45)
[2017-02-24] MEDS ORDERED: ZOLPIDEM TARTRATE 5 MG TAB PO PRN (21:45)
[2017-02-24] MEDS ORDERED: TRAMADOL HCL 50 MG TAB PO PRN (21:45)
[2017-02-24] MEDS ORDERED: DEXTROSE 50% 50 ML SYR IV PRN (21:45)
[2017-02-24] MEDS ORDERED: GLUCOSE 10 TABS/TUBE PO PRN (21:45)
[2017-02-24] MEDS ORDERED: GLUCAGON FOR INJ 1 MG VIAL SQ PRN (21:45)
[2017-02-24] MEDS ORDERED: ACETAMINOPHEN 325 MG TAB PO PRN (21:45)
[2017-02-24] MEDS ORDERED: GLUCOSE 40% GEL 15 GM TUBE PO PRN (21:45)
[2017-02-24] MEDS ORDERED: IV FLUIDS COMPLETED PRN (22:00)
[2017-02-24 22:40] VITALS: Ht 165.1 cm; Wt 114.6 kg
[2017-02-24] MEDS: SODIUM CHLORIDE 0.9% 1000ML 1,000 ML IV SCH (23:32)
[2017-02-24] MEDS: LORAZEPAM 1 MG TAB PO PRN (23:39)
[2017-02-24 23:57] VITALS: PULSE 100; O2SAT 92
[2017-02-25] VITALS (8 sets, daily range): BP systolic 123–167; BP diastolic 63–86; PULSE 71–99; TEMP 36.4–36.9; O2SAT 95–100
[2017-02-25] MEDS: INSULIN ASPART 100 UNITS/ML 3 ML PEN SC SCH ×7 (00:57→20:35)
--- NOTE | 2017-02-25 04:21 | History and Physical ---
History & Physical Date & Time of Service: Feb 25, 2017 at 04:07. Examination was performed on 02/24/2017. Chief Complaint: Acute On Chronic Renal Insufficiency,Dehydration Primary Care Physician: Joesph Horan M.D. History of Present Illness Source: patient The patient is a 81-year-old female who presents to the emergency department with worsening generalized weakness over the past few days prior to arrival. She was admitted to the hospital from to January 11 for treatment of UTI. She reports that since that time she's had persistent and worsening weakness and more recently has been unable to walk. She also has had decreased urination. Because of these worsening symptoms she called EMS who brought her to the emergency department for assessment. She's had no recent travel, or sick exposures. She reports that her oral intake for both liquids and solids has been diminished recently. Past Medical/Surgical History Medical Problems: (1) Chronic lymphocytic leukemia (CLL), B-cell Status: Chronic (2) Congestive heart failure Status: Chronic (3) Controlled atrial fibrillation Status: Chronic (4) CORONARY ATHEROSCLEROSIS OF [place] CORONARY VESSEL Status: Chronic (5) DIAB TRELL WO COMPL, TYPE II OR UNSPEC TYPE, UNCONTROLLED Status: Chronic (6) MALIG SAMMIE CORPUS UTERI Status: Resolved (7) Pneumonia Status: Resolved (8) SOB (shortness of breath) Status: Chronic Family History Patient reports no known family medical history. Social History Smoking Status: Never Smoker Alcohol Use: none Drug Use: none Marital Status: Housing status: lives alone Occupational Status: retired Immunizations History of Influenza Vaccine: Yes Influenza Vaccine Date: Aug 26, 2006 History of Tetanus Vaccine?: Yes History of Pneumococcal: Yes History of Hepatitis B Vaccine: No Multi-Drug Resistant Organisms History of MDRO: No Allergies Coded Allergies: Aspirin (Verified Adverse Reaction, Unknown, INTOLERANT-HX GI BLEED, ) Home Medications Scheduled Allopurinol (Zyloprim), 100 MG PO DAILY Atorvastatin (Lipitor), 40 MG PO HS Calcitriol (Rocaltrol Cap), 0.25 MCG PO DAILY Esomeprazole Magnesium (Nexium), 40 MG PO DAILY Furosemide (Lasix), 40 MG PO DAILY Hctz/Losartan (Hyzaar 12.5MG/50MG), 1 TAB PO DAILY Insulin Aspart (Novolog Flexpen), 0 UNITS SC ACHS Insulin Human NPH (Novolin N), 20 UNITS SQ QAM Insulin Human NPH (Novolin N), 10 UNITS SQ QPM Levothyroxine Sodium (Levothyroxine Sodium), 1 TAB PO DAILY Metoprolol Tartrate (Lopressor) (Lopressor), 100 MG PO BID Metronidazole (Metronidazole), 500 MG PO TID Mirtazapine (Mirtazapine), 15 MG PO HS Paroxetine HCl (Paroxetine), 30 MG PO DAILY Rivaroxaban (Xarelto), 15 MG PO DAILY Scheduled PRN Hydrocodone/Acetaminophen ([place] 10/325 Tab), 1 TAB PO Q12 PRN for Pain Lorazepam (Ativan), 1 MG PO DAILY PRN for Anxiety Tramadol (Ultram), 50 MG PO Q6 PRN for Pain Review of Systems The patient denies chest pain, palpitations, cough, lower extremity swelling, vision change, hearing change, sore throat, fevers, chills, sweats, nausea, vomiting, abdominal pain, pelvic pain, blood in urine or stool, dysuria, urinary frequency or urgency, lightheadedness, dizziness, headache, memory loss , rash, abnormal bruising or bleeding, imbalance, focal weakness, numbness or tingling in arms or legs, arthralgias or myalgias, back or neck pain, night sweats, or allergy symptoms. The review of systems is otherwise negative other than for that already noted above, and at least 10 systems have been reviewed. Physical Exam Vital Signs Date Time Temp Pulse Resp B/P Pulse Ox O2 Delivery O2 Flow Rate FiO2 02/25/17 00:04 36.8 71 18 123/86 96 Nasal Cannula 4.0 02/25/17 00:00 100 CPAP 4.0 02/24/17 23:57 100 92 4.0 02/24/17 22:40 Nasal Cannula 4.0 02/24/17 21:57 62 20 119/72 94 Room Air 02/24/17 19:59 60 124/67 152/70 02/24/17 18:27 94 Nasal Cannula 4.0 02/24/17 18:27 94 Nasal Cannula 4.0 02/24/17 18:21 59 02/24/17 18:19 36.8 58 18 130/76 95 Nasal Cannula 4.0 The patient is awake, well-developed and adequately nourished, alert and oriented 3, normocephalic and atraumatic, lying in bed and in no acute distress. HEENT--PERRL, EOMI, mucous membranes and oropharynx dry. Neck--supple, no JVD or bruits, thyroid normal, trachea midline, no adenopathy. Heart--normal S1 and S2, no extra beats, no murmurs, rubs or gallops. Lungs--clear bilaterally with good air movement, no respiratory distress, no accessory muscle use. Abdomen--normal bowel sounds and soft, nontender and nondistended, no hernias or masses, no organomegaly. Morbidly obese. Extremities--no cyanosis, clubbing or edema. There are good distal pulses b/l. Dermatologic--normal skin turgor, normal color, warm and dry, no abnormal lymph nodes, no rash. Neurologic--cranial nerves II through XII grossly intact, motor and sensory examination normal. Rheumatologic--normal range of motion, nontender, muscles and joints for age. Psychiatric--normal affect. Diagnostics Laboratory Results Results Past 24 Hours Test 02/24/17 18:33 02/24/17 19:02 02/24/17 19:50 02/25/17 00:41 Range/Units Bedside Glucose 176 188 70-90 mg/dl White Blood Count 16.09 4.8-10.8 K/uL Red Blood Count 2.95 4.2-5.4 M/uL Hemoglobin 9.2 12.0-16.0 g/dL Hematocrit 29.0 37-47 % Mean Corpuscular Volume 98.3 80-100 fL Mean Corpuscular Hemoglobin 31.2 25-34 pg Mean Corpuscular Hemoglobin Concent 31.7 32-36 g/dl Platelet Count 321 130-400 K/uL Mean Platelet Volume 9.6 7.4-10.4 fL Neutrophils (%) (Auto) 26.0 % Lymphocytes (%) (Auto) 64.3 % Monocytes (%) (Auto) 8.8 % Eosinophils (%) (Auto) 0.6 % Basophils (%) (Auto) 0.2 % Neutrophils # (Auto) 4.19 1.4-6.5 K/uL Lymphocytes # (Auto) 10.35 1.2-3.4 K/uL Monocytes # (Auto) 1.41 0.11-0.59 K/uL Eosinophils # (Auto) 0.09 0-0.5 K/uL Basophils # (Auto) 0.03 0-0.2 K/uL RDW Standard Deviation 56.7 36.4-46.3 fL RDW Coefficient of Variation 16.1 11.5-14.5 % Immature Granulocyte % (Auto) 0.1 % Immature Granulocyte # (Auto) 0.02 0.00-0.02 K/uL Smudge Cells PRESENT Polychromasia 1+ Anisocytosis PRESENT Sodium Level 139 136-145 mmol/L Potassium Level 4.6 3.5-5.1 mmol/L Chloride Level 105 98-107 mmol/L Carbon Dioxide Level 22 21-32 mmol/L Anion Gap 12.0 3-11 mmol/L Blood Urea Nitrogen 77 7-18 mg/dl Creatinine 3.70 0.60-1.20 mg/dl Est Creatinine Clear Calc Drug Dose 16.1 ml/min Estimated GFR () 12.8 Estimated GFR (Non- 11.0 BUN/Creatinine Ratio 20.9 10-20 Random Glucose 190 70-99 mg/dl Calcium Level 9.2 8.5-10.1 mg/dl Total Bilirubin 0.4 0.2-1 mg/dl Direct Bilirubin 0.1 0-0.2 mg/dl Aspartate Amino Transf (AST/SGOT) 16 15-37 U/L Alanine Aminotransferase (ALT/SGPT) 11 12-78 U/L Alkaline Phosphatase 156 45-117 U/L Total Creatine Kinase 21 26-192 U/L Creatine Kinase MB 1.5 0.5-3.6 ng/ml Creatine Kinase MB Ratio 7.1 0-3.0 Troponin I 0.036 0-0.045 ng/ml Total Protein 7.0 6.4-8.2 gm/dl Albumin 3.3 3.4-5.0 gm/dl Thyroid Stimulating Hormone (TSH) 1.010 0.300-4.500 uIu/ml Urine Color YELLOW Urine Appearance CLEAR CLEAR Urine pH 5.0 4.5-7.5 Urine Specific [place] 1.016 1.000-1.030 Urine Protein TRACE NEG Urine Glucose (UA) NEG NEG Urine Ketones NEG NEG Urine Occult Blood NEG NEG Urine Nitrite NEG NEG Urine Bilirubin NEG NEG Urine Urobilinogen NEG NEG Urine Leukocyte Esterase NEG NEG Urine WBC (Auto) 0 0-5 /hpf Urine RBC (Auto) 0-4 0-4 /hpf Urine Hyaline Casts (Auto) 1-5 0-5 /lpf Urine Epithelial Cells (Auto) 0-5 0-5 /lpf Urine Bacteria (Auto) NEG NEG Diagnostic Radiology Patient Name: JANEE KRUEGER Unit Number: [id number] Dictated: 02/24/171938 Transcribed: 02/24/171938 JESUS Printed Date/Time: [~ rep prt dt]/[~ rep prt tm] [~ rep ct labl] - [~ rep ct ivnm] [facility] [place] [address] Dictated: 02/24/171938 Transcribed: 02/24/171938 JA Printed Date/Time: [~ rep prt dt]/[~ rep prt tm] [~ rep ct labl] - [~ rep ct ivnm] CT OF THE HEAD WITHOUT CONTRAST CLINICAL HISTORY: Altered mental status. COMPARISON STUDY: Head CT January 08, 2017 CT DOSE: 601.98 mGy.cm TECHNIQUE: Helical axial images of the head were obtained without IV contrast. Automated exposure control was utilized for the study. FINDINGS: No acute intracranial hemorrhage, midline shift or mass effect is present. Ventricular system is stable. Basilar cisterns are patent. There are no extra-axial collections. 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 There are no findings to suggest acute dural sinus thrombosis or acute territorial infarct. There are several opacified left mastoid air cells. There are minimal layering secretions within the right sphenoid sinus. There is no calvarial fracture. IMPRESSION: 1. No acute intracranial findings. 2. Old right frontal lobe infarct. Electronically signed by: Nelson Benito M.D. 02/24/2017 7:44 PM Dictated Date/Time: 02/24/2017 7:39 PM The status of this report is Signed. Draft = Not yet reviewed or approved by Radiologist. Signed = Reviewed and approved by Radiologist. <AttendingPhy></AttendingPhy> <FamilyPhy>Joesph Horan M.D.</FamilyPhy> < PrimaryPhy>Joesph Horan M.D.</PrimaryPhy> <UnitNumber>[id number]</UnitNumber > <VisitNumber>[id number]</VisitNumber> <PatientName>JANEE KRUEGER</ PatientName> <DateOfBirth>1935</DateOfBirth> <Location>C.EDB</Location> < ServiceDate>02/24/17</ServiceDate> <MNE>ESINDI</MNE> <OrderingPhy>Geoffrey Flores MD</OrderingPhy> <OrderingPhyMNE>f rep ord dr maldonado</OrderingPhyMNE> < DictatingPhyMNE>f rep dict dr maldonado</DictatingPhyMNE> <CCListMNE>f rep ct mne</ CCListMNE> <AdmittingPhyMNE>f pt admit dr maldonado</AdmittingPhyMNE> <AttendingPhyMNE >f pt attend dr maldonado</AttendingPhyMNE> <ConsultingPhyMNE>f pt consult dr maldonado</ConsultingPhyMNE> <FamilyPhyMNE>f pt fam dr maldonado</FamilyPhyMNE> <OtherPhyMNE>f pt other dr maldonado</OtherPhyMNE> < PrimaryPhyMNE>f pt prim care dr maldonado</PrimaryPhyMNE> <ReferringPhyMNE>f pt referring dr maldonado</ReferringPhyMNE> Patient Name: JANEE KRUEGER Unit Number: [id number] Dictated: 02/24/171936 Transcribed: 02/24/171936 JA Printed Date/Time: [~ rep prt dt]/[~ rep prt tm] [~ rep ct labl] - [~ rep ct ivnm] [facility] [place] [address] Dictated: 02/24/171936 Transcribed: 02/24/171936 JA Printed Date/Time: [~ rep prt dt]/[~ rep prt tm] [~ rep ct labl] - [~ rep ct ivnm] CHEST ONE VIEW PORTABLE CLINICAL HISTORY: Generalized weakness. COMPARISON STUDY: Chest radiograph January 08, 2017. FINDINGS: This exam is compromised by suboptimal penetration. No pneumothorax or pleural effusion is present. There is no lobar consolidation. Moderate cardiomegaly is unchanged. There is stable pulmonary vascular congestion without overt pulmonary edema. IMPRESSION: No change in appearance of the chest. Cardiomegaly with pulmonary vascular congestion. Electronically signed by: Nelson Benito M.D. 02/24/2017 7:39 PM Dictated Date/Time: 02/24/2017 7:37 PM The status of this report is Signed. Draft = Not yet reviewed or approved by Radiologist. Signed = Reviewed and approved by Radiologist. <AttendingPhy></AttendingPhy> <FamilyPhy>Joesph Horan M.D.</FamilyPhy> < PrimaryPhy>Joesph Horan M.D.</PrimaryPhy> <UnitNumber>[id number]</UnitNumber > <VisitNumber>[id number]</VisitNumber> <PatientName>JANEE KRUEGER</ PatientName> <DateOfBirth>1935</DateOfBirth> <Location>C.EDB</Location> < ServiceDate>02/24/17</ServiceDate> <MNE>ESINDI</MNE> <OrderingPhy>Geoffrey Flores MD</OrderingPhy> <OrderingPhyMNE>f rep ord dr maldonado</OrderingPhyMNE> < DictatingPhyMNE>f rep dict dr maldonado</DictatingPhyMNE> <CCListMNE>f rep ct joel</ CCListMNE> <AdmittingPhyMNE>f pt admit dr maldonado</AdmittingPhyMNE> <AttendingPhyMNE >f pt attend dr maldonado</AttendingPhyMNE> <ConsultingPhyMNE>f pt consult dr maldonado</ConsultingPhyMNE> <FamilyPhyMNE>f pt fam dr maldonado</FamilyPhyMNE> <OtherPhyMNE>f pt other dr maldonado</OtherPhyMNE> < PrimaryPhyMNE>f pt prim care dr maldonado</PrimaryPhyMNE> <ReferringPhyMNE>f pt referring dr maldonado</ReferringPhyMNE> EKG EKG shows wide QRS at 65 bpm, left axis deviation, right bundle branch block, no acute ST-T changes. Impression Assessment and Plan Generalized fatigue/dehydration/acute on chronic renal failure--the patient will be admitted to the telemetry unit for serial cardiac enzymes, cardiac rhythm monitoring and a 2-D echocardiogram with Dopplers. Will hold furosemide 40 mg by mouth daily, and Hyzaar 12.5/50 by mouth daily. We'll gently hydrate with normal saline at 75 ML's per hour, and repeat ENT and magnesium levels in the a.m. Continue calcitriol 0.25 g by mouth daily. CAD/hypertension/atrial fibrillation/aortic stenosis/CHF--we'll continue metoprolol tartrate 100 mg by mouth twice a day, hold Hyzaar and furosemide as noted above. Continue Xarelto 15 mg by mouth daily. Monitor cardiac enzymes as noted and cardiac rhythm. Diabetes mellitus--continue Novolin and 20 units subcutaneous every morning and 10 units subcutaneous every afternoon. Place on Accu-Cheks before meals and at bedtime with NovoLog coverage scale. Hypercholesterolemia--continue atorvastatin 40 mg by mouth at bedtime. Hypothyroidism--continue levothyroxine sodium by mouth daily. GERD--change Nexium 40 mg by mouth daily to pantoprazole 40 mg by mouth daily. Gout--continue allopurinol 100 mg by mouth daily. Depression/insomnia--continue Peroxin to 30 mg by mouth daily and mirtazapine 15 mg by mouth daily at bedtime. 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 Level of Care Telemetry Advanced Directives Existing Advance Directive: No Existing Living Will: Yes Existing Power of Lamp Inspector: Yes Resuscitation Status FULL RESUSCITATION VTE Prophylaxis VTE Risk Assessment Done? Y/N: Yes Risk Level: Moderate Given or contraindicated: SCD's
[2017-02-25 04:49] LABS: HEMATOCRIT 27.6 % (37-47); MEAN CELL VOLUME 100.7 fL (80-100); MEAN CORPUSCULAR HEMOGLOBIN 31.8 pg (25-34); MEAN CORPUSCULAR HGB CONC 31.5 g/dl (32-36); MEAN PLATELET VOLUME 9.5 fL (7.4-10.4); PLATELET COUNT 284 K/uL (130-400); RED BLOOD COUNT 2.74 M/uL (4.2-5.4); WHITE BLOOD COUNT 17.29 K/uL (4.8-10.8)
[2017-02-25 05:29] LABS: BASO % 0.2 %; BASO ABS # 0.03 K/uL (0-0.2); COMPLETE YES; EOS % 0.3 %; IG% 0.1 %; LYMPH % 71.1 %; MONO % 8.2 %; NEUT % 20.1 %; POLYCHROMASIA 1+; SMUDGE CELLS PRESENT
[2017-02-25 05:30] LABS: BUN/CREATININE RATIO 21.7 (10-20); CALCIUM 9.4 mg/dl (8.5-10.1); CKMB/CK RATIO 3.7 (0-3.0); CREATININE 3.3 mg/dl (0.60-1.20); MAGNESIUM 1.8 mg/dl (1.8-2.4); POTASSIUM 4.3 mmol/L (3.5-5.1)
[2017-02-25] MEDS: HYDROCODONE/ACETAMI 10/325 TAB PO PRN (06:18)
[2017-02-25] MEDS: LEVOTHYROXINE 150 MCG TAB PO SCH (06:30)
[2017-02-25] MEDS: PANTOprazole SOD 40 MG TAB PO SCH (07:56)
[2017-02-25] MEDS: ALLOPURINOL 100 MG TAB PO SCH (07:56)
[2017-02-25] MEDS: CALCITRIOL 0.25 MCG CAP PO SCH (07:56)
[2017-02-25] MEDS: METOPROLOL TARTRATE 100 MG TAB PO SCH ×2 (07:56→20:36)
[2017-02-25] MEDS: PAROXETINE 20 MG TAB PO SCH (07:57)
[2017-02-25] MEDS: INSULIN HUMAN NPH SQ SCH ×2 (08:06→17:29)
[2017-02-25] MEDS: SODIUM CHLORIDE 0.9% 1000ML 1,000 ML IV SCH ×2 (12:22→23:51)
--- NOTE | 2017-02-25 13:31 | Hospitalist Progress Note ---
Hospitalist Progress Note Date of Service Feb 25, 2017. Subjective admittted earlier today with gen. weakness and dehydration and on IV fluids. Medications Medications (Trade) Dose Ordered Sig/Yina Route Start Time Stop Time Status Last Admin Dose Admin Sodium Chloride (Nss 500ml) 500 ml @ 999 mls/hr Q31M STAT IV 02/24/17 18:23 02/24/17 18:53 DC 02/24/17 19:47 999 MLS/HR Allopurinol (Zyloprim Tab) 100 mg DAILY PO 02/25/17 09:00 03/27/17 08:59 02/25/17 07:56 100 MG Calcitriol (Rocaltrol Cap) 0.25 mcg DAILY PO 02/25/17 09:00 03/27/17 08:59 02/25/17 07:56 0.25 MCG Acetaminophen/ Hydrocodone Bitart ([place] 10/325 Tab) 1 tab Q12H PRN PO 02/24/17 21:45 03/10/17 21:44 02/25/17 06:18 1 TAB Insulin Human NPH (novoLIN-N NPH) 20 units QDB SQ 02/25/17 08:00 03/27/17 07:59 02/25/17 08:06 20 UNITS Levothyroxine Sodium (Synthroid Tab) 150 mcg DAILYBB PO 02/25/17 06:30 03/27/17 06:29 02/25/17 06:30 150 MCG Lorazepam (Ativan Tab) 1 mg DAILY PRN PO 02/24/17 21:45 03/26/17 21:44 02/24/17 23:39 1 MG Metoprolol Tartrate (Lopressor Tab) 100 mg BID PO 02/25/17 09:00 03/27/17 08:59 02/25/17 07:56 100 MG Pantoprazole Sodium (Protonix Tab) 40 mg QAM PO 02/25/17 09:00 03/27/17 08:59 02/25/17 07:56 40 MG Paroxetine HCl 30 mg 30 mg QAM PO 02/25/17 09:00 03/27/17 08:59 02/25/17 07:57 30 MG Sodium Chloride (Nss 1000ml) 1,000 ml @ 75 mls/hr [id number] IV 02/24/17 21:45 03/26/17 21:44 02/25/17 12:22 75 MLS/HR Objective Vital Signs Date Time Temp Pulse Resp B/P Pulse Ox O2 Delivery O2 Flow Rate FiO2 02/25/17 11:20 36.9 84 16 155/73 97 Nasal Cannula 4.0 02/25/17 08:00 Nasal Cannula 4.0 02/25/17 07:09 36.9 79 16 129/63 99 Nasal Cannula 4.0 02/25/17 00:04 36.8 71 18 123/86 96 Nasal Cannula 4.0 02/25/17 00:00 100 CPAP 4.0 02/24/17 23:57 100 92 4.0 02/24/17 22:40 Nasal Cannula 4.0 02/24/17 21:57 62 20 119/72 94 Room Air 02/24/17 19:59 60 124/67 152/70 02/24/17 18:27 94 Nasal Cannula 4.0 02/24/17 18:27 94 Nasal Cannula 4.0 02/24/17 18:21 59 02/24/17 18:19 36.8 58 18 130/76 95 Nasal Cannula 4.0 Laboratory Results Last 24 Hours Test 02/24/17 18:33 02/24/17 19:02 02/24/17 19:50 02/25/17 00:41 Bedside Glucose 176 mg/dl 188 mg/dl White Blood Count 16.09 K/uL Red Blood Count 2.95 M/uL Hemoglobin 9.2 g/dL Hematocrit 29.0 % Mean Corpuscular Volume 98.3 fL Mean Corpuscular Hemoglobin 31.2 pg Mean Corpuscular Hemoglobin Concent 31.7 g/dl Platelet Count 321 K/uL Mean Platelet Volume 9.6 fL Neutrophils (%) (Auto) 26.0 % Lymphocytes (%) (Auto) 64.3 % Monocytes (%) (Auto) 8.8 % Eosinophils (%) (Auto) 0.6 % Basophils (%) (Auto) 0.2 % Neutrophils # (Auto) 4.19 K/uL Lymphocytes # (Auto) 10.35 K/uL Monocytes # (Auto) 1.41 K/uL Eosinophils # (Auto) 0.09 K/uL Basophils # (Auto) 0.03 K/uL RDW Standard Deviation 56.7 fL RDW Coefficient of Variation 16.1 % Immature Granulocyte % (Auto) 0.1 % Immature Granulocyte # (Auto) 0.02 K/uL Smudge Cells PRESENT Polychromasia 1+ Anisocytosis PRESENT Sodium Level 139 mmol/L Potassium Level 4.6 mmol/L Chloride Level 105 mmol/L Carbon Dioxide Level 22 mmol/L Anion Gap 12.0 mmol/L Blood Urea Nitrogen 77 mg/dl Creatinine 3.70 mg/dl Est Creatinine Clear Calc Drug Dose 16.1 ml/min Estimated GFR () 12.8 Estimated GFR (Non- 11.0 BUN/Creatinine Ratio 20.9 Random Glucose 190 mg/dl Calcium Level 9.2 mg/dl Total Bilirubin 0.4 mg/dl Direct Bilirubin 0.1 mg/dl Aspartate Amino Transf (AST/SGOT) 16 U/L Alanine Aminotransferase (ALT/SGPT) 11 U/L Alkaline Phosphatase 156 U/L Total Creatine Kinase 21 U/L Creatine Kinase MB 1.5 ng/ml Creatine Kinase MB Ratio 7.1 Troponin I 0.036 ng/ml Total Protein 7.0 gm/dl Albumin 3.3 gm/dl Thyroid Stimulating Hormone (TSH) 1.010 uIu/ml Urine Color YELLOW Urine Appearance CLEAR Urine pH 5.0 Urine Specific [place] 1.016 Urine Protein TRACE Urine Glucose (UA) NEG Urine Ketones NEG Urine Occult Blood NEG Urine Nitrite NEG Urine Bilirubin NEG Urine Urobilinogen NEG Urine Leukocyte Esterase NEG Urine WBC (Auto) 0 /hpf Urine RBC (Auto) 0-4 /hpf Urine Hyaline Casts (Auto) 1-5 /lpf Urine Epithelial Cells (Auto) 0-5 /lpf Urine Bacteria (Auto) NEG Test 02/25/17 04:40 02/25/17 07:31 02/25/17 11:36 02/25/17 12:21 White Blood Count 17.29 K/uL Red Blood Count 2.74 M/uL Hemoglobin 8.7 g/dL Hematocrit 27.6 % Mean Corpuscular Volume 100.7 fL Mean Corpuscular Hemoglobin 31.8 pg Mean Corpuscular Hemoglobin Concent 31.5 g/dl Platelet Count 284 K/uL Mean Platelet Volume 9.5 fL Neutrophils (%) (Auto) 20.1 % Lymphocytes (%) (Auto) 71.1 % Monocytes (%) (Auto) 8.2 % Eosinophils (%) (Auto) 0.3 % Basophils (%) (Auto) 0.2 % Neutrophils # (Auto) 3.47 K/uL Lymphocytes # (Auto) 12.30 K/uL Monocytes # (Auto) 1.41 K/uL Eosinophils # (Auto) 0.06 K/uL Basophils # (Auto) 0.03 K/uL RDW Standard Deviation 59.1 fL RDW Coefficient of Variation 16.2 % Immature Granulocyte % (Auto) 0.1 % Immature Granulocyte # (Auto) 0.02 K/uL Smudge Cells PRESENT Polychromasia 1+ Sodium Level 142 mmol/L Potassium Level 4.3 mmol/L Chloride Level 108 mmol/L Carbon Dioxide Level 25 mmol/L Anion Gap 9.0 mmol/L Blood Urea Nitrogen 72 mg/dl Creatinine 3.30 mg/dl Est Creatinine Clear Calc Drug Dose 18.0 ml/min Estimated GFR () 14.7 Estimated GFR (Non- 12.6 BUN/Creatinine Ratio 21.7 Random Glucose 131 mg/dl Calcium Level 9.4 mg/dl Magnesium Level 1.8 mg/dl Total Creatine Kinase 27 U/L Creatine Kinase MB 1.0 ng/ml Creatine Kinase MB Ratio 3.7 Troponin I 0.057 ng/ml Bedside Glucose 123 mg/dl 115 mg/dl Test 02/25/17 12:40 Diagnostic Results * Name: JANEE KRUEGER Study Date: 01/09/2017 11:43 AM * Patient Location: [facility]\S\2 * : 1935 (M/d/yyyy) Gender: Female Height: 65 in * Age: 81 yrs Ethnicity: [place] Weight: 266 lb * Ordering Physician: Tiana Alaniz * Referring Physician: Self, Referred * Performed By: Marylin Henriquez RCS * * Reason For Study: Valvular Heart Dz * BSA: 2.2 m2 * Normal left ventricular size and systolic function. * Moderate concentric left ventricular hypertrophy. * Left ventricular diastolic dysfunction. * Mild biatrial dilatation. * Severe calcific aortic stenosis. * Trace aortic regurgitation. * Mild mitral regurgitation. * Mild to moderate tricuspid regurgitation. * Mild pulmonic regurgitation. * Moderately decreased right ventricular systolic function. * Right ventricular pressure and volume overload. * Mildly elevated right ventricular systolic pressure. Assessment and Plan Generalized fatigue/dehydration/acute on chronic renal failure--the patient will be admitted to the telemetry unit for serial cardiac enzymes, cardiac rhythm monitoring and a 2-D echocardiogram with Dopplers. Will hold furosemide 40 mg by mouth daily, and Hyzaar 12.5/50 by mouth daily. We'll gently hydrate with normal saline at 75 ML's per hour, and repeat ENT and magnesium levels in the a.m. Continue calcitriol 0.25 g by mouth daily. CAD/CHF-we'll continue metoprolol tartrate 100 mg by mouth twice a day, hold Hyzaar and furosemide as noted above. Mild increase in troponins likely due to Acute on CKD. Pt is CP free. Afib. Rate controlled on BB. Continue Xarelto 15 mg by mouth daily. Severe : Consider TAVR eval for severe as OP Diabetes mellitus--continue Novolin and 20 units subcutaneous every morning and 10 units subcutaneous every afternoon. Place on Accu-Cheks before meals and at bedtime with NovoLog coverage scale. Hypercholesterolemia--continue atorvastatin 40 mg by mouth at bedtime. Hypothyroidism--continue levothyroxine sodium by mouth daily. GERD--change Nexium 40 mg by mouth daily to pantoprazole 40 mg by mouth daily. Gout--continue allopurinol 100 mg by mouth daily. Depression/insomnia--continue Peroxin to 30 mg by mouth daily and mirtazapine 15 mg by mouth daily at bedtime. 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
[2017-02-25] MEDS ORDERED: IV FLUIDS COMPLETED PRN ×2 (14:00)
--- NOTE | 2017-02-25 15:35 | ECHOCARDIOGRAM REPORT ---
*NOTICE TO RECEIVING [employer] This information is strictly Confidential and protected under [place] law. [place] law prohibits you from making any further disclosure of this information unless further disclosure is expressly permitted by the written consent of the person to whom it pertains or is authorized by law. A general authorization for the release of medical or other information is not sufficient for this purpose. Hospital accepts no responsibility if the information is made available to any other person, INCLUDING THE PATIENT. Interpretation Summary * Name: JANEE KRUEGER Study Date: 02/25/2017 09:33 AM BP: 123/86 mmHg * Patient Location: [facility]\S\N288\S\2 HR: 71 * : 1935 (M/d/yyy) Gender: Female Height: 65 in * Age: 81 yrs Ethnicity: [place] Weight: 266 lb * Ordering Physician: Rakesh Joyce * Performed By: Dolly Jett RDCS * * Reason For Study: Elevated troponin * BSA: 2.2 m2 * -- Conclusions -- * Technically limited study * 1. Normal LV size. Mild concentric LVH. * 2. Normal LV systolic function. LVEF 65-70%. No regional wall motion abnormalities. * 3. RV not well visualized. Grossly normal size. * 4. Aortic valve is calcified, thickened and restricted. Adequate doppler velocities not obtained to estimate severity. Appears severe on 2D. * 5. Mild aortic regurgitation. * 6. Mitral annular calcification with mild mitral stenosis. * 7. Compared with prior study on 01/09/2017: Unable to quantify severity. severe on prior study. Procedure Details * A complete two-dimensional transthoracic echocardiogram was performed (2D, M-mode, Doppler and color flow Doppler). * A contrast injection of Definity was performed to improve assessment of LV function. * Contrast was injected into an intravenous site in the left arm. * One vial of Definity ultrasound contrast was diluted in normal saline to a total volume of 10 ml. A total of '2' ml of solution was administered during imaging. * Lot # [id number] of Definity utilized for procedure. * Expiration date MAR 13. * The attending nurse who injected the contrast agent was Stephanie Roman RN. Left Ventricle * The left ventricle is grossly normal size. * There is mild concentric left ventricular hypertrophy. * Ejection Fraction = 65-70%. * No regional wall motion abnormalities noted. Right Ventricle * The right ventricle is grossly normal size. * The right ventricle is not well visualized. Atria * The left atrium is severely dilated. * Right atrium not well visualized. Mitral Valve * There is mild to moderate mitral annular calcification. * There is mild mitral stenosis. * Significant mitral regurgitation is absent. Tricuspid Valve * The tricuspid valve is not well visualized, but is grossly normal. * There is mild to moderate tricuspid regurgitation. * Systolic flow reversal in hepatic veins. Aortic Valve * Calcified, thickened and restricted * Mild aortic regurgitation. Pulmonic Valve * The pulmonary valve is inadequately visualized, but the Doppler data is adequate for interpretation. * Pulmonic stenosis is absent. * Trace pulmonic valvular regurgitation. Great Vessels * IVC < 2.1, < 50% change with respiration. Est RA 8 mmHg MMode 2D Measurements and Calculations IVSd 1.2 cm LVIDd 4.5 cm LVIDs 3.3 cm LVPWd 1.1 cm IVS/LVPW 1.1 FS 26.6 % EDV(Teich) 92.0 ml ESV(Teich) 44.0 ml EF(Teich) 52.2 % EDV(cubed) 90.6 ml ESV(cubed) 35.8 ml EF(cubed) 60.5 % LV mass(C)d 192.2 grams LV mass(C)dI 86.1 grams/m\S\2 CO(Teich) 4.1 l/min CI(Teich) 1.8 l/min/m\S\2 SV(Teich) 48.0 ml SI(Teich) 21.5 ml/m\S\2 CO(cubed) 4.7 l/min CI(cubed) 2.1 l/min/m\S\2 SV(cubed) 54.8 ml SI(cubed) 24.5 ml/m\S\2 Ao root diam 2.8 cm Ao root area 6.0 cm\S\2 ACS 1.3 cm LA dimension 3.8 cm asc Aorta Diam 3.2 cm LA/Ao 1.4 LVOT diam 2.0 cm LVOT area 3.0 cm\S\2 LVAd ap4 29.6 cm\S\2 LVLd ap4 8.1 cm EDV(MOD-sp4) 86.8 ml LVAs ap4 15.8 cm\S\2 LVLs ap4 7.1 cm ESV(MOD-sp4) 28.5 ml EF(MOD-sp4) 67.2 % LVAd ap2 35.3 cm\S\2 LVLd ap2 9.0 cm EDV(MOD-sp2) 112.0 ml LVAs ap2 15.3 cm\S\2 LVLs ap2 6.7 cm ESV(MOD-sp2) 28.3 ml EF(MOD-sp2) 74.7 % CO(MOD-sp4) 5.0 l/min CI(MOD-sp4) 2.2 l/min/m\S\2 SV(MOD-sp4) 58.3 ml SI(MOD-sp4) 26.1 ml/m\S\2 CO(MOD-sp2) 7.2 l/min CI(MOD-sp2) 3.2 l/min/m\S\2 SV(MOD-sp2) 83.7 ml SI(MOD-sp2) 37.5 ml/m\S\2 Doppler Measurements and Calculations MV E max ranjit 142.1 cm/sec MV dec time 0.24 sec Ao V2 max 122.2 cm/sec Ao max PG 6.0 mmHg Ao max PG (full) 1.5 mmHg MAURICIO(V,A) 2.6 cm\S\2 MAURICIO(V,D) 2.6 cm\S\2 LV V1 max PG 4.4 mmHg LV V1 max 105.3 cm/sec PA V2 max 145.2 cm/sec PA max PG 8.4 mmHg PA acc slope 719.4 cm/sec\S\2 PA acc time 0.16 sec PI max ranjit 165.6 cm/sec PI max PG 11.0 mmHg PI dec slope 164.4 cm/sec\S\2 PI P1/2t 295.0 msec PA pr(Accel) 7.7 mmHg
[2017-02-25] MEDS: RIVAROXABAN TAB 15 MG TAB PO SCH (17:22)
[2017-02-25] MEDS: ATORVASTATIN 40 MG TAB PO SCH (20:36)
[2017-02-25] MEDS: MIRTAZAPINE TAB 15 MG TAB PO SCH (20:36)
[2017-02-25] MEDS: LORAZEPAM 1 MG TAB PO PRN (20:42)
[2017-02-26] VITALS (11 sets, daily range): BP systolic 121–169; BP diastolic 75–88; PULSE 53–76; TEMP 36.7–37.5; O2SAT 92–96
[2017-02-26] MEDS: LEVOTHYROXINE 150 MCG TAB PO SCH (05:41)
[2017-02-26] MEDS: PAROXETINE 20 MG TAB PO SCH (07:36)
[2017-02-26] MEDS: PANTOprazole SOD 40 MG TAB PO SCH (07:36)
[2017-02-26] MEDS: CALCITRIOL 0.25 MCG CAP PO SCH (07:37)
[2017-02-26] MEDS: ALLOPURINOL 100 MG TAB PO SCH (07:37)
[2017-02-26] MEDS: METOPROLOL TARTRATE 100 MG TAB PO SCH (07:37)
[2017-02-26] MEDS: INSULIN HUMAN NPH SQ SCH ×2 (07:38→17:02)
[2017-02-26 07:47] LABS: HEMATOCRIT 29.2 % (37-47); MEAN CELL VOLUME 100.3 fL (80-100); MEAN CORPUSCULAR HEMOGLOBIN 31.3 pg (25-34); MEAN CORPUSCULAR HGB CONC 31.2 g/dl (32-36); MEAN PLATELET VOLUME 9.9 fL (7.4-10.4); PLATELET COUNT 320 K/uL (130-400); RED BLOOD COUNT 2.91 M/uL (4.2-5.4); WHITE BLOOD COUNT 13.91 K/uL (4.8-10.8)
[2017-02-26 08:16] LABS: BUN/CREATININE RATIO 22.6 (10-20); CALCIUM 9.6 mg/dl (8.5-10.1); CREATININE 2.7 mg/dl (0.60-1.20); MAGNESIUM 1.6 mg/dl (1.8-2.4); POTASSIUM 4.7 mmol/L (3.5-5.1)
[2017-02-26 08:46] LABS: BASO % 0.2 %; BASO ABS # 0.03 K/uL (0-0.2); COMPLETE YES; EOS % 0.1 %; IG% 0.3 %; LYMPH % 46.2 %; LYMPH ABS # 6.43 K/uL (1.2-3.4); MONO % 8.3 %; NEUT % 44.9 %; SMUDGE CELLS PRESENT
[2017-02-26] MEDS: MAGNESIUM OXIDE 400 MG TAB PO SCH ×3 (09:43→22:12)
[2017-02-26] MEDS: INSULIN ASPART 100 UNITS/ML 3 ML PEN SC SCH ×4 (09:45→21:00)
[2017-02-26] MEDS ORDERED: FUROSEMIDE INJ 40 MG in SYRINGE 0 ML IV ONE (10:45)
--- NOTE | 2017-02-26 12:31 | Progress Note ---
Subjective Date of Service: Feb 26, 2017. (Stephanie De Paz PA-C) Subjective Pt evaluation today including: conversation w/ patient, physical exam, chart review, lab review, review of studies, review of inpatient medication list Patient seen and evaluated. No acute events overnight. Noted change in mentation and increased generalized weakness. Was tolerating NC initially but showing hypoxia at 85% with 4 L NC HOP elevated and CPAP applied. Improvement in hypoxia with adequate oxygenation. IVF discontinued. Lasix 40 mg IV 1 dose given. Patient's mentation has been improving with oxygen therapy (CPAP). Monitor showing intermittent bradycardia likely related to metoprolol dosing. Metoprolol has been reduced to 50 mg twice a day (Stephanie De Paz PA-C) Problem List Medical Problems: (1) Dehydration Status: Acute (2) Elevated troponin Status: Acute (3) Facial laceration Status: Acute (Stephanie De Paz PA-C) Review of Systems Constitutional: + weakness, No chills, No fever Respiratory: + shortness of breath Cardiac: No chest pain Abdomen: No nausea, No pain, No vomiting Musculoskeletal: No calf pain Female : No dysuria Neurologic: No vertigo (Stephanie De Paz PA-C) Medications Current Inpatient Medications Medications (Trade) Dose Ordered Sig/Yina Route Start Time Stop Time Status Last Admin Dose Admin Acetaminophen (Tylenol Tab) 650 mg Q4H PRN PO 02/24/17 21:45 03/26/17 21:44 Zolpidem Tartrate (Ambien Tab) 5 mg HSZ PRN PO 02/24/17 21:45 03/26/17 21:44 Allopurinol (Zyloprim Tab) 100 mg DAILY PO 02/25/17 09:00 03/27/17 08:59 02/26/17 07:37 100 MG Atorvastatin Calcium (Lipitor Tab) 40 mg HS PO 02/25/17 21:00 03/27/17 20:59 02/25/17 20:36 40 MG Calcitriol (Rocaltrol Cap) 0.25 mcg DAILY PO 02/25/17 09:00 03/27/17 08:59 02/26/17 07:37 0.25 MCG Acetaminophen/ Hydrocodone Bitart ([place] 10/325 Tab) 1 tab Q12H PRN PO 02/24/17 21:45 4/15/17 21:44 02/25/17 06:18 1 TAB Insulin Human NPH (novoLIN-N NPH) 10 units QDD SQ 02/25/17 17:00 03/27/17 16:59 02/25/17 17:29 10 UNITS Insulin Human NPH (novoLIN-N NPH) 20 units QDB SQ 02/25/17 08:00 03/27/17 07:59 02/26/17 07:38 20 UNITS Levothyroxine Sodium (Synthroid Tab) 150 mcg DAILYBB PO 02/25/17 06:30 03/27/17 06:29 02/26/17 05:41 150 MCG Lorazepam (Ativan Tab) 1 mg DAILY PRN PO 02/24/17 21:45 03/26/17 21:44 02/25/17 20:42 1 MG Mirtazapine (Remeron Tab) 15 mg HS PO 02/25/17 21:00 03/27/17 20:59 02/25/17 20:36 15 MG Rivaroxaban (Xarelto Tab) 15 mg QDD PO 02/25/17 17:00 03/27/17 16:59 02/25/17 17:22 15 MG Tramadol HCl (Ultram Tab) 50 mg Q6 PRN PO 02/24/17 21:45 03/26/17 21:44 Pantoprazole Sodium (Protonix Tab) 40 mg QAM PO 02/25/17 09:00 03/27/17 08:59 02/26/17 07:36 40 MG Paroxetine HCl (pAXil TAB) 30 mg QAM PO 02/25/17 09:00 03/27/17 08:59 02/26/17 07:36 30 MG Ondansetron HCl (Zofran Inj) 4 mg Q6H PRN IV 02/24/17 21:45 03/26/17 21:44 Glucose (Glucose 40% Gel) UD PRN PO 02/24/17 21:45 03/26/17 21:44 Glucose (Glucose Chew Tab) 1 tabs UD PRN PO 02/24/17 21:45 03/26/17 21:44 Dextrose (Dextrose 50% 50ML Syringe) 50 ml UD PRN IV 02/24/17 21:45 03/26/17 21:44 Glucagon (Glucagon Inj) 1 mg UD PRN SQ 02/24/17 21:45 03/26/17 21:44 Miscellaneous (Iv Fluids Completed) 1 ea PRN PRN N/A 02/24/17 22:00 02/24/18 21:59 Miscellaneous (Iv Fluids Completed) 1 ea PRN PRN N/A 02/25/17 14:00 02/25/18 13:59 Insulin Aspart (novoLOG ASPART) SLIDING SCALE If C... ACHS SC 02/25/17 21:00 03/27/17 20:59 02/26/17 09:45 7 UNITS Magnesium Oxide (Mag-Ox Tab) 400 mg BID PO 02/26/17 09:30 03/28/17 09:29 02/26/17 09:43 400 MG Metoprolol Tartrate (Lopressor Tab) 50 mg BID PO 02/26/17 21:00 03/28/17 20:59 (Stephanie De Paz, PA-C) Objective Vital Signs Date Time Temp Pulse Resp B/P Pulse Ox O2 Delivery O2 Flow Rate FiO2 02/26/17 11:41 37.0 63 16 169/86 96 Nasal Cannula 2.0 02/26/17 08:00 92 Nasal Cannula 4.0 02/26/17 07:55 37.5 71 18 147/75 92 Nasal Cannula 4.0 02/26/17 04:00 37.0 70 18 154/85 96 4.0 02/26/17 04:00 Nasal Cannula 4.0 CPAP 02/26/17 00:00 Nasal Cannula 4.0 CPAP 02/25/17 23:58 36.4 99 20 167/82 99 CPAP 02/25/17 22:15 94 95 4.0 02/25/17 20:33 36.8 90 18 165/85 97 Room Air 4.0 90 02/25/17 20:00 Nasal Cannula 4.0 02/25/17 16:00 Nasal Cannula 4.0 02/25/17 14:59 36.9 71 16 130/68 97 Nasal Cannula 4.0 (Stephanie De Paz, PA-C) Physical Exam General Appearance: WD/WN, + mild distress Eyes: sclerae normal ENT: hearing grossly normal Neck: supple, no JVD, trachea midline Respiratory/Chest: + respiratory distress (mild - improving with CPAP), + accessory muscle use ( decreasing with CPAP), + crackles (bases bilaterally) Cardiovascular: regular rate, rhythm, no gallop, + systolic murmur Abdomen: normal bowel sounds, non tender, soft Extremities: no calf tenderness Neurologic/Psychiatric: alert, + disoriented (improved to baseline mentation with CPAP) Skin: normal color, warm/dry (Stephanie De Paz, AMIE) Laboratory Results Last 24 Hours Test 02/25/17 12:40 02/25/17 16:41 02/25/17 20:24 02/25/17 20:33 Total Creatine Kinase 43 U/L 48 U/L Creatine Kinase MB 1.3 ng/ml 1.9 ng/ml Creatine Kinase MB Ratio 3.0 4.0 Troponin I 0.062 ng/ml 0.058 ng/ml Bedside Glucose 177 mg/dl 171 mg/dl Test 02/26/17 07:20 02/26/17 11:34 White Blood Count 13.91 K/uL Red Blood Count 2.91 M/uL Hemoglobin 9.1 g/dL Hematocrit 29.2 % Mean Corpuscular Volume 100.3 fL Mean Corpuscular Hemoglobin 31.3 pg Mean Corpuscular Hemoglobin Concent 31.2 g/dl Platelet Count 320 K/uL Mean Platelet Volume 9.9 fL Neutrophils (%) (Auto) 44.9 % Lymphocytes (%) (Auto) 46.2 % Monocytes (%) (Auto) 8.3 % Eosinophils (%) (Auto) 0.1 % Basophils (%) (Auto) 0.2 % Neutrophils # (Auto) 6.25 K/uL Lymphocytes # (Auto) 6.43 K/uL Monocytes # (Auto) 1.15 K/uL Eosinophils # (Auto) 0.01 K/uL Basophils # (Auto) 0.03 K/uL RDW Standard Deviation 58.2 fL RDW Coefficient of Variation 16.1 % Immature Granulocyte % (Auto) 0.3 % Immature Granulocyte # (Auto) 0.04 K/uL Nucleated RBC Absolute Count (auto) 0.02 K/uL Nucleated Red Blood Cells % 0.2 % Smudge Cells PRESENT Sodium Level 140 mmol/L Potassium Level 4.7 mmol/L Chloride Level 107 mmol/L Carbon Dioxide Level 23 mmol/L Anion Gap 10.0 mmol/L Blood Urea Nitrogen 61 mg/dl Creatinine 2.70 mg/dl Est Creatinine Clear Calc Drug Dose 21.8 ml/min Estimated GFR () 18.7 Estimated GFR (Non- 16.1 BUN/Creatinine Ratio 22.6 Random Glucose 218 mg/dl Calcium Level 9.6 mg/dl Magnesium Level 1.6 mg/dl Bedside Glucose 169 mg/dl (Stephanie De Paz, PA-C) Assessment and Plan Acute Hypoxia and Bradycardia: Fluid Overload - Diastolic CHF - Improvement with CPAP initiation of Lasix 40 mg IV 1 dose - will continue monitor - Reduce metoprolol to 50 mg BID - Continue night CPAP Generalized Weakness - Dehydration with Acute on Chronic Renal Failure - Troponins peaked at 0.062 and trending down - likely due to acute on chronic renal failure - Echo - EF 65-70%, mild LVH, no regional wall abnormalities, severe aortic stenosis - Calcitriol 0.25 mcg daily Atrial Fibrillation and Severe Aortic Stenosis: - Metoprolol 50 mg BID and Xarelto 15 mg daily - TAVR evaluation as outpatient? 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 DVT Prophylaxis: Xarelto Code Status: FULL RESUSCITATION Disposition: - PT/OT Evaluations (Stephanie De Paz, PA-C) i personally examined pt and verified all valle points w Mao De Paz PAC saw in short order after ms de paz - w cpap on, pt already feeling better and much more oriented nad, lungs bibasilar rales but good air entry on bipap labs reviewed d/w nursing as well a/p acute on chronic systolic (aortic stenosis) CHF -came in dry, but likely extremely narrow therapeutic window for "wet vs dry" -stop fluids, IV lasix, bipap until can be weaned arf on ckd (?stage 4 baseline) - likely was worse due to being dry - improved w fluids but will have to follow w diuretics otherwise as above (Kd Golden D.Gama.)
[2017-02-26] MEDS: RIVAROXABAN TAB 15 MG TAB PO SCH (16:58)
[2017-02-26] MEDS: HYDROCODONE/ACETAMI 10/325 TAB PO PRN (17:44)
[2017-02-26] MEDS: METOPROLOL TARTRATE 50 MG TAB PO SCH ×2 (21:00→22:12)
[2017-02-26] MEDS: ATORVASTATIN 40 MG TAB PO SCH ×2 (21:00→22:12)
[2017-02-26] MEDS: MIRTAZAPINE TAB 15 MG TAB PO SCH ×2 (21:00→22:13)
[2017-02-27] VITALS (10 sets, daily range): BP systolic 129–149; BP diastolic 64–84; PULSE 57–89; TEMP 36.3–37.2; O2SAT 90–98
[2017-02-27] MEDS: LEVOTHYROXINE 150 MCG TAB PO SCH (06:14)
[2017-02-27 07:11] LABS: HEMATOCRIT 28.2 % (37-47); MEAN CELL VOLUME 100.7 fL (80-100); MEAN CORPUSCULAR HEMOGLOBIN 31.8 pg (25-34); MEAN CORPUSCULAR HGB CONC 31.6 g/dl (32-36); MEAN PLATELET VOLUME 9.9 fL (7.4-10.4); PLATELET COUNT 312 K/uL (130-400); WHITE BLOOD COUNT 17.81 K/uL (4.8-10.8)
[2017-02-27 07:39] LABS: BUN/CREATININE RATIO 25.8 (10-20); CREATININE 2.3 mg/dl (0.60-1.20); MAGNESIUM 1.8 mg/dl (1.8-2.4)
[2017-02-27 08:09] LABS: BASO % 0.2 %; BASO ABS # 0.03 K/uL (0-0.2); COMPLETE YES; EOS % 0.5 %; IG% 0.1 %; LYMPH % 69.6 %; MONO % 5.4 %; NEUT % 24.2 %
[2017-02-27] MEDS: PANTOprazole SOD 40 MG TAB PO SCH (08:34)
[2017-02-27] MEDS: PAROXETINE 20 MG TAB PO SCH (08:34)
[2017-02-27] MEDS: ALLOPURINOL 100 MG TAB PO SCH (08:34)
[2017-02-27] MEDS: METOPROLOL TARTRATE 50 MG TAB PO SCH ×2 (08:34→21:13)
[2017-02-27 08:35] LABS: SMUDGE CELLS PRESENT
[2017-02-27] MEDS: MAGNESIUM OXIDE 400 MG TAB PO SCH ×2 (08:35→21:14)
[2017-02-27] MEDS: CALCITRIOL 0.25 MCG CAP PO SCH (08:35)
[2017-02-27] MEDS: INSULIN ASPART 100 UNITS/ML 3 ML PEN SC SCH ×4 (08:43→21:00)
[2017-02-27] MEDS: INSULIN HUMAN NPH SQ SCH ×2 (08:44→17:36)
--- NOTE | 2017-02-27 09:57 | Progress Note ---
Subjective Date of Service: Feb 27, 2017. (Stephanie Finch, BRAYANC) Subjective Pt evaluation today including: conversation w/ patient, conversation w/ family , physical exam, chart review, lab review, review of studies, review of inpatient medication list Patient seen and evaluated. No acute events overnight. Patient is sitting at the edge of the bed. No acute distress with O2 by NC on at this time. Still appears to be mouth breathing however no accessory muscle use. Lungs are diminished at bases but no adventitious sounds appreciated. Continues to have TURCIOS but denies SOB at rest. Notes improvement in generalized weakness. She is more alert and interactive compared to exam yesterday which appears to be related to hypoxia. (Stephanie Finch PA-C) Problem List Medical Problems: (1) Dehydration Status: Acute (2) Elevated troponin Status: Acute (3) Facial laceration Status: Acute (Stephanie Finch, AMIE) Review of Systems Constitutional: No chills, No fever, No weakness Respiratory: + dyspnea on exertion, No cough Cardiac: No chest pain Abdomen: No constipation, No diarrhea, No nausea, No pain, No vomiting Musculoskeletal: No calf pain, No swelling Neurologic: + numbness/tingling (intermittent - bilateral lower extremity ( chronic neuropathy)) (Stephanie Finch, BRAYANC) Medications Current Inpatient Medications Medications (Trade) Dose Ordered Sig/Yina Route Start Time Stop Time Status Last Admin Dose Admin Acetaminophen (Tylenol Tab) 650 mg Q4H PRN PO 02/24/17 21:45 03/26/17 21:44 Zolpidem Tartrate (Ambien Tab) 5 mg HSZ PRN PO 02/24/17 21:45 03/26/17 21:44 Allopurinol (Zyloprim Tab) 100 mg DAILY PO 02/25/17 09:00 03/27/17 08:59 02/27/17 08:34 100 MG Atorvastatin Calcium (Lipitor Tab) 40 mg HS PO 02/25/17 21:00 03/27/17 20:59 02/26/17 22:12 40 MG Calcitriol (Rocaltrol Cap) 0.25 mcg DAILY PO 02/25/17 09:00 03/27/17 08:59 02/27/17 08:35 0.25 MCG Acetaminophen/ Hydrocodone Bitart ([place] 10/325 Tab) 1 tab Q12H PRN PO 02/24/17 21:45 03/10/17 21:44 02/26/17 17:44 1 TAB Insulin Human NPH (novoLIN-N NPH) 10 units QDD SQ 02/25/17 17:00 03/27/17 16:59 02/26/17 17:02 10 UNITS Insulin Human NPH (novoLIN-N NPH) 20 units QDB SQ 02/25/17 08:00 03/27/17 07:59 02/27/17 08:44 20 UNITS Levothyroxine Sodium (Synthroid Tab) 150 mcg DAILYBB PO 02/25/17 06:30 03/27/17 06:29 02/27/17 06:14 150 MCG Lorazepam (Ativan Tab) 1 mg DAILY PRN PO 02/24/17 21:45 03/26/17 21:44 02/25/17 20:42 1 MG Mirtazapine (Remeron Tab) 15 mg HS PO 02/25/17 21:00 03/27/17 20:59 02/25/17 20:36 15 MG Rivaroxaban (Xarelto Tab) 15 mg QDD PO 02/25/17 17:00 03/27/17 16:59 02/26/17 16:58 15 MG Tramadol HCl (Ultram Tab) 50 mg Q6 PRN PO 02/24/17 21:45 03/26/17 21:44 Pantoprazole Sodium (Protonix Tab) 40 mg QAM PO 02/25/17 09:00 03/27/17 08:59 02/27/17 08:34 40 MG Paroxetine HCl (pAXil TAB) 30 mg QAM PO 02/25/17 09:00 03/27/17 08:59 02/27/17 08:34 30 MG Ondansetron HCl (Zofran Inj) 4 mg Q6H PRN IV 02/24/17 21:45 03/26/17 21:44 Glucose (Glucose 40% Gel) UD PRN PO 02/24/17 21:45 03/26/17 21:44 Glucose (Glucose Chew Tab) 1 tabs UD PRN PO 02/24/17 21:45 03/26/17 21:44 Dextrose (Dextrose 50% 50ML Syringe) 50 ml UD PRN IV 02/24/17 21:45 03/26/17 21:44 Glucagon (Glucagon Inj) 1 mg UD PRN SQ 02/24/17 21:45 03/26/17 21:44 Miscellaneous (Iv Fluids Completed) 1 ea PRN PRN N/A 02/24/17 22:00 02/24/18 21:59 Miscellaneous (Iv Fluids Completed) 1 ea PRN PRN N/A 02/25/17 14:00 02/25/18 13:59 Insulin Aspart (novoLOG ASPART) SLIDING SCALE If C... ACHS SC 02/25/17 21:00 03/27/17 20:59 02/27/17 08:43 2 UNITS Magnesium Oxide (Mag-Ox Tab) 400 mg BID PO 02/26/17 09:30 03/28/17 09:29 02/27/17 08:35 400 MG Metoprolol Tartrate (Lopressor Tab) 50 mg BID PO 02/26/17 21:00 03/28/17 20:59 02/27/17 08:34 50 MG (Stephanie Finch, PA-C) Objective Vital Signs Date Time Temp Pulse Resp B/P Pulse Ox O2 Delivery O2 Flow Rate FiO2 02/27/17 07:35 36.8 72 18 143/74 90 BiPAP 2.0 02/27/17 04:01 36.9 76 18 149/74 90 Room Air 02/27/17 04:00 Nasal Cannula 4.0 CPAP 02/27/17 00:00 36.7 71 20 133/65 93 CPAP 4.0 02/27/17 00:00 Nasal Cannula 4.0 CPAP 02/26/17 23:11 68 96 2.0 02/26/17 21:16 74 02/26/17 20:07 57 94 2.0 02/26/17 20:00 92 CPAP 02/26/17 20:00 36.7 76 18 121/82 92 CPAP 68 02/26/17 17:12 36.7 76 18 164/88 93 CPAP 10.0 02/26/17 16:00 CPAP 02/26/17 13:11 92 Nasal Cannula 4.0 CPAP 02/26/17 12:00 53 02/26/17 11:41 37.0 63 16 169/86 96 Nasal Cannula 2.0 (Stephanie Finch PA-C) Physical Exam General Appearance: WD/WN, no apparent distress, + obese Eyes: sclerae normal ENT: hearing grossly normal Neck: supple, no JVD, trachea midline Respiratory/Chest: lungs clear, no respiratory distress, no accessory muscle use, + decreased breath sounds (bases bilat) Cardiovascular: no gallop, + systolic murmur, + irregularly irregular Abdomen: normal bowel sounds, non tender, soft Extremities: no pedal edema, no calf tenderness Neurologic/Psychiatric: alert, oriented x 3 Skin: normal color, warm/dry (Stephanie Finch PA-C) Laboratory Results Last 24 Hours Test 02/26/17 11:34 02/26/17 16:02 02/26/17 21:00 02/27/17 06:25 Bedside Glucose 169 mg/dl 148 mg/dl 145 mg/dl White Blood Count 17.81 K/uL Red Blood Count 2.80 M/uL Hemoglobin 8.9 g/dL Hematocrit 28.2 % Mean Corpuscular Volume 100.7 fL Mean Corpuscular Hemoglobin 31.8 pg Mean Corpuscular Hemoglobin Concent 31.6 g/dl Platelet Count 312 K/uL Mean Platelet Volume 9.9 fL Neutrophils (%) (Auto) 24.2 % Lymphocytes (%) (Auto) 69.6 % Monocytes (%) (Auto) 5.4 % Eosinophils (%) (Auto) 0.5 % Basophils (%) (Auto) 0.2 % Neutrophils # (Auto) 4.31 K/uL Lymphocytes # (Auto) 12.40 K/uL Monocytes # (Auto) 0.96 K/uL Eosinophils # (Auto) 0.09 K/uL Basophils # (Auto) 0.03 K/uL RDW Standard Deviation 58.1 fL RDW Coefficient of Variation 16.2 % Immature Granulocyte % (Auto) 0.1 % Immature Granulocyte # (Auto) 0.02 K/uL Smudge Cells PRESENT Red Blood Cell Morphology Unremarkable Sodium Level 144 mmol/L Potassium Level 4.0 mmol/L Chloride Level 110 mmol/L Carbon Dioxide Level 24 mmol/L Anion Gap 10.0 mmol/L Blood Urea Nitrogen 59 mg/dl Creatinine 2.30 mg/dl Est Creatinine Clear Calc Drug Dose 25.3 ml/min Estimated GFR () 22.7 Estimated GFR (Non- 19.6 BUN/Creatinine Ratio 25.8 Random Glucose 99 mg/dl Calcium Level 10.0 mg/dl Magnesium Level 1.8 mg/dl Test 02/27/17 07:51 02/27/17 08:11 Bedside Glucose 107 mg/dl (Stephanie Finch, SELAM-C) Assessment and Plan Acute Hypoxia and Bradycardia 2/2 Acute on Chronic Systolic CHF (Aortic Stenosis ): - Hypoxia on 4L NC 02/26 - resolved with CPAP and Lasix 40 mg IV x 1 dose - Continue reduced dose of Metoprolol 50 mg BID - Continue home Lasix 40 mg po daily - continue monitoring - Continue night CPAP and wean day O2 per nursing protocol Acute on Chronic Renal Failure Stage IV: - Troponins peaked at 0.062 and trending down - likely due to acute on chronic renal failure - Echo - EF 65-70%, mild LVH, no regional wall abnormalities, severe aortic stenosis - Upon admission patient dry and hydrated with minimal improvement in Cr - Lasix given with improvement - element of CHF as contributing factor - Calcitriol 0.25 mcg daily Atrial Fibrillation and Severe Aortic Stenosis: - Metoprolol 50 mg BID and Xarelto 15 mg daily - TAVR evaluation as outpatient - information sent Diabetes Mellitus: - Novolin-NPH 20 units SC AM and 10 units SC afternoon with SSI coverage 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 DVT Prophylaxis: Xarelto Code Status: FULL RESUSCITATION Disposition: - PT/OT Evaluations (Stephanie Finch, BRAYANC) i personally examined pt and verified all valle points w Mao Finch PAC breathing better, feeling better getting up and moving better would like to go to [facility] if at all possible vitals noted, nad breathing unlabored, no pallor, resting comfortably, nasal O2 acute diastolic CHF - brittle/narrow therapeutic window w wet vs dry due to severe aortic stenosis - but appearing compensated again waekness/dehydration - on admission - improved 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
[2017-02-27] MEDS ORDERED: FUROSEMIDE 40 MG TAB PO ONE (10:30)
[2017-02-27] MEDS: RIVAROXABAN TAB 15 MG TAB PO SCH (17:33)
[2017-02-27] MEDS: ATORVASTATIN 40 MG TAB PO SCH (21:13)
[2017-02-27] MEDS: MIRTAZAPINE TAB 15 MG TAB PO SCH (21:15)
[2017-02-27] MEDS: HYDROCODONE/ACETAMI 10/325 TAB PO PRN (21:23)
[2017-02-28] VITALS (9 sets, daily range): BP systolic 121–171; BP diastolic 60–94; PULSE 61–86; TEMP 36.1–36.8; O2SAT 92–100
[2017-02-28 06:02] LABS: HEMATOCRIT 27.3 % (37-47); MEAN CELL VOLUME 99.3 fL (80-100); MEAN CORPUSCULAR HEMOGLOBIN 30.5 pg (25-34); MEAN CORPUSCULAR HGB CONC 30.8 g/dl (32-36); MEAN PLATELET VOLUME 9.5 fL (7.4-10.4); PLATELET COUNT 322 K/uL (130-400); RED BLOOD COUNT 2.75 M/uL (4.2-5.4); WHITE BLOOD COUNT 21.53 K/uL (4.8-10.8)
[2017-02-28] MEDS: LEVOTHYROXINE 150 MCG TAB PO SCH ×2 (06:30→06:41)
[2017-02-28 06:32] LABS: CALCIUM 9.8 mg/dl (8.5-10.1); CREATININE 2.2 mg/dl (0.60-1.20); MAGNESIUM 1.5 mg/dl (1.8-2.4); POTASSIUM 3.6 mmol/L (3.5-5.1)
[2017-02-28] MEDS ORDERED: MAGNESIUM SULFATE 1GM / D5W 1 GM in PREMIXED IN D5W 100 ML IV ONE (08:00)
[2017-02-28] MEDS: PAROXETINE 20 MG TAB PO SCH (08:18)
[2017-02-28] MEDS: METOPROLOL TARTRATE 50 MG TAB PO SCH ×2 (08:19→21:07)
[2017-02-28] MEDS: MAGNESIUM OXIDE 400 MG TAB PO SCH ×2 (08:19→21:06)
[2017-02-28] MEDS: ALLOPURINOL 100 MG TAB PO SCH (08:19)
[2017-02-28] MEDS: PANTOprazole SOD 40 MG TAB PO SCH (08:20)
[2017-02-28] MEDS: FUROSEMIDE 40 MG TAB PO SCH (08:20)
[2017-02-28] MEDS: CALCITRIOL 0.25 MCG CAP PO SCH (08:20)
[2017-02-28] MEDS: INSULIN ASPART 100 UNITS/ML 3 ML PEN SC SCH ×4 (08:26→20:48)
[2017-02-28] MEDS: INSULIN HUMAN NPH SQ SCH ×2 (08:27→17:48)
[2017-02-28] MEDS ORDERED: METO50TA17 PO (12:56)
[2017-02-28] MEDS ORDERED: MGNO400 PO (12:56)
--- NOTE | 2017-02-28 14:22 | Discharge Instructions ---
Discharge Instructions Date of Service Feb 28, 2017. Admission Reason for Admission: Acute On Chronic Renal Insufficiency,Dehydration Discharge Discharge Diagnosis / Problem: Acute on Chronic Systolic CHF and Acute on Chronic Kidney Disease Discharge Goals Goal(s): Decrease discomfort, Improve function, Increase independence Activity Recommendations Activity Level: Assistance Required Therapies: Physical Therapy, Occupational Therapy . Additional Information Patient informed of condition: Yes Advance Directives: No DNR: No Level of Care: Skilled Communicable Disease: No Prognosis: Improving Oxygen at (LPM): 2-4 L/Min with plan to wean with CPAP at night Petty Catheter: No Instructions / Follow-Up Instructions / Follow-Up Acute Hypoxia and Bradycardia 2/2 Acute on Chronic Systolic CHF (Aortic Stenosis ): - O2 needs vary from 2-4 L with CPAP at night -- Plan to continue weaning O2 as indicated to maintain saturations greater than or equal to 92% - Patient initially presented with dehydration with an acute episode of hypervolemia -- She has a narrow therapeutic window between dehydration versus hypervolemia - Lung exam reveals diminished breath sounds throughout but no rales/crackles appreciated - Continue home dosing of Lasix 40 mg po daily - Continue reduced dose of metoprolol at 50 mg BID due to episodes of bradycardia -- Outpatient records reviewed - metoprolol was decreased on previous admission -- However it appears patient resumed regular home dosing - it appears patient has difficulty managing medications on her own -- After acute rehabilitation stay patient is [facility] go [facility] - patient will benefit from assistance with medication management and thorough directions Acute on Chronic Renal Failure Stage IV: RESOLVED - Patient currently at baseline kidney function - Avoid nephrotoxic agents Atrial Fibrillation and Severe Aortic Stenosis: - Metoprolol 50 mg BID and Xarelto 15 mg daily - TAVR evaluation as outpatient - information sent - [facility] will call son Diabetes Mellitus: - Novolin-NPH 20 units SC AM and 10 units SC afternoon with SSI coverage - SSI - may utilize facility protocol -- Hospital coverage - goal range of 120-160; correction factor of 30 mg/dL/ unit; with 1:10 carbohydrate coverage 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 - Evidence of leukocytosis - current WBC of 21.53 DVT Prophylaxis: Xarelto Code Status: FULL RESUSCITATION Current Hospital Diet Patient's current hospital diet: Regular Diet Discharge Diet Recommended Diet: Regular Diet Pending Studies Studies pending at discharge: no Physician Orders On Transfer POLST Discussion: Not Applicable Laboratory Results Hemoglobin A1c Test 02/14/17 10:51 Range/Units Estimated Average Glucose 140 mg/dl Hemoglobin A1c 6.5 H 4.5-5.6 % Lipid Panel Test 02/14/17 10:51 Range/Units Triglycerides Level 201 H 0-150 mg/dl Cholesterol Level 207 H 0-200 mg/dl HDL Cholesterol 44 mg/dl Cholesterol/HDL Ratio 4.7 LDL Cholesterol, Calculated 123 mg/dl Medical Emergencies . Who to Call and When: Medical Emergencies: If at any time you feel your situation is an emergency, please call 911 immediately. . Non-Emergent Contact Non-Emergency issues call your: Primary Care Provider Call Non-Emergent contact if: you have a fever, your pain is concerning you, you have any medication questions . . "Provider Documentation" section prepared by Stephanie Finch. Core Measure Problem Core Measures: None [place] Drug Monitoring Program Search Results: patient reviewed within database, no issues identified
--- NOTE | 2017-02-28 14:37 | Progress Note ---
Subjective Date of Service: Feb 28, 2017. (Stephanie Finch PA-C) Subjective Pt evaluation today including: conversation w/ patient, conversation w/ family , physical exam, chart review, lab review, review of studies, conversation w/ sharepoint consultant (case management), review of inpatient medication list Patient seen and evaluated. No acute events overnight. Continues to need supplemental O2 during the day ranging from 2-4 L. Patient states at rest she is not experiencing shortness of breath but continues to experience some with exertion. She continues to be at baseline mentation and reporting improvement in generalized weakness. At with patient, son, and case management at bedside - plan to discharge to [facility] for SNF with ultimate transition to [facility] (Stephanie Finch PA-C) Problem List Medical Problems: (1) Dehydration Status: Acute (2) Elevated troponin Status: Acute (3) Facial laceration Status: Acute (Stephanie Finch, AMIE) Review of Systems Constitutional: No chills, No fever Eyes: No worsening of vision ENT: No nasal symptoms, No trouble swallowing, No unusual epistaxis Respiratory: + cough, + dyspnea on exertion, No dyspnea at rest Cardiac: No chest pain Abdomen: No constipation, No diarrhea, No nausea, No pain, No vomiting Musculoskeletal: No calf pain, No swelling Female : No dysuria Skin: No rash (Stephanie Finch PA-C) Medications Current Inpatient Medications Medications (Trade) Dose Ordered Sig/Yina Route Start Time Stop Time Status Last Admin Dose Admin Acetaminophen (Tylenol Tab) 650 mg Q4H PRN PO 02/24/17 21:45 03/26/17 21:44 Zolpidem Tartrate (Ambien Tab) 5 mg HSZ PRN PO 02/24/17 21:45 03/26/17 21:44 Allopurinol (Zyloprim Tab) 100 mg DAILY PO 02/25/17 09:00 03/27/17 08:59 02/28/17 08:19 100 MG Atorvastatin Calcium (Lipitor Tab) 40 mg HS PO 02/25/17 21:00 03/27/17 20:59 02/27/17 21:13 40 MG Calcitriol (Rocaltrol Cap) 0.25 mcg DAILY PO 02/25/17 09:00 03/27/17 08:59 02/28/17 08:20 0.25 MCG Acetaminophen/ Hydrocodone Bitart (Cunningham 10/325 Tab) 1 tab Q12H PRN PO 02/24/17 21:45 03/10/17 21:44 02/27/17 21:23 1 TAB Insulin Human NPH (novoLIN-N NPH) 10 units QDD SQ 02/25/17 17:00 03/27/17 16:59 02/27/17 17:36 10 UNITS Insulin Human NPH (novoLIN-N NPH) 20 units QDB SQ 02/25/17 08:00 03/27/17 07:59 02/28/17 08:27 20 UNITS Levothyroxine Sodium (Synthroid Tab) 150 mcg DAILYBB PO 02/25/17 06:30 03/27/17 06:29 02/28/17 06:41 150 MCG Lorazepam (Ativan Tab) 1 mg DAILY PRN PO 02/24/17 21:45 03/26/17 21:44 02/25/17 20:42 1 MG Mirtazapine (Remeron Tab) 15 mg HS PO 02/25/17 21:00 03/27/17 20:59 02/27/17 21:15 15 MG Rivaroxaban (Xarelto Tab) 15 mg QDD PO 02/25/17 17:00 03/27/17 16:59 02/27/17 17:33 15 MG Tramadol HCl (Ultram Tab) 50 mg Q6 PRN PO 02/24/17 21:45 03/26/17 21:44 Pantoprazole Sodium (Protonix Tab) 40 mg QAM PO 02/25/17 09:00 03/27/17 08:59 02/28/17 08:20 40 MG Paroxetine HCl (pAXil TAB) 30 mg QAM PO 02/25/17 09:00 03/27/17 08:59 02/28/17 08:18 30 MG Ondansetron HCl (Zofran Inj) 4 mg Q6H PRN IV 02/24/17 21:45 03/26/17 21:44 Glucose (Glucose 40% Gel) UD PRN PO 02/24/17 21:45 03/26/17 21:44 Glucose (Glucose Chew Tab) 1 tabs UD PRN PO 02/24/17 21:45 03/26/17 21:44 Dextrose (Dextrose 50% 50ML Syringe) 50 ml UD PRN IV 02/24/17 21:45 03/26/17 21:44 Glucagon (Glucagon Inj) 1 mg UD PRN SQ 02/24/17 21:45 03/26/17 21:44 Miscellaneous (Iv Fluids Completed) 1 ea PRN PRN N/A 02/24/17 22:00 02/24/18 21:59 Miscellaneous (Iv Fluids Completed) 1 ea PRN PRN N/A 02/25/17 14:00 02/25/18 13:59 Insulin Aspart (novoLOG ASPART) SLIDING SCALE If C... ACHS SC 02/25/17 21:00 03/27/17 20:59 02/28/17 13:29 8 UNITS Magnesium Oxide (Mag-Ox Tab) 400 mg BID PO 02/26/17 09:30 03/28/17 09:29 02/28/17 08:19 400 MG Metoprolol Tartrate (Lopressor Tab) 50 mg BID PO 02/26/17 21:00 03/28/17 20:59 02/28/17 08:19 50 MG Furosemide (Lasix Tab) 40 mg DAILY PO 02/28/17 09:00 03/30/17 08:59 02/28/17 08:20 40 MG (Stephanie Finch, SELAM-C) Objective Vital Signs Date Time Temp Pulse Resp B/P Pulse Ox O2 Delivery O2 Flow Rate FiO2 02/28/17 12:00 94 Nasal Cannula 4.0 02/28/17 11:33 36.7 61 18 132/63 97 Nasal Cannula 4.0 02/28/17 08:00 94 Nasal Cannula 4.0 02/28/17 07:18 36.3 84 20 160/91 100 BiPAP 02/28/17 04:24 36.1 86 18 154/94 99 CPAP 02/28/17 04:00 CPAP 4.0 02/28/17 00:00 CPAP 4.0 02/27/17 23:12 36.6 89 18 129/84 98 CPAP 02/27/17 22:11 68 96 4.0 02/27/17 19:11 37.0 73 16 134/64 98 Nasal Cannula 4.0 02/27/17 16:00 Nasal Cannula 4.0 02/27/17 15:20 36.3 61 16 144/69 96 Room Air (Stephanie Finch, SELAM-C) Physical Exam General Appearance: WD/WN, no apparent distress, + obese Eyes: sclerae normal ENT: hearing grossly normal Neck: supple, no JVD, trachea midline Respiratory/Chest: lungs clear, no respiratory distress, no accessory muscle use, + decreased breath sounds (throughout) Cardiovascular: no gallop, + systolic murmur (II-III/), + irregularly irregular Abdomen: normal bowel sounds, non tender, soft Extremities: no pedal edema, no calf tenderness Neurologic/Psychiatric: alert, oriented x 3 Skin: normal color, warm/dry (Stephanie Finch, BRAYANC) Laboratory Results Last 24 Hours Test 02/27/17 16:32 02/27/17 20:15 02/28/17 05:21 02/28/17 07:01 Bedside Glucose 106 mg/dl 132 mg/dl 89 mg/dl White Blood Count 21.53 K/uL Red Blood Count 2.75 M/uL Hemoglobin 8.4 g/dL Hematocrit 27.3 % Mean Corpuscular Volume 99.3 fL Mean Corpuscular Hemoglobin 30.5 pg Mean Corpuscular Hemoglobin Concent 30.8 g/dl RDW Standard Deviation 58.2 fL RDW Coefficient of Variation 16.4 % Platelet Count 322 K/uL Mean Platelet Volume 9.5 fL Sodium Level 145 mmol/L Potassium Level 3.6 mmol/L Chloride Level 110 mmol/L Carbon Dioxide Level 26 mmol/L Anion Gap 9.0 mmol/L Blood Urea Nitrogen 59 mg/dl Creatinine 2.20 mg/dl Est Creatinine Clear Calc Drug Dose 26.4 ml/min Estimated GFR () 23.9 Estimated GFR (Non- 20.6 BUN/Creatinine Ratio 27.0 Random Glucose 88 mg/dl Calcium Level 9.8 mg/dl Magnesium Level 1.5 mg/dl Test 02/28/17 11:09 Bedside Glucose 186 mg/dl (Stephanie Finch, SELAM-C) Assessment and Plan Acute Hypoxia and Bradycardia 2/2 Acute on Chronic Systolic CHF (Aortic Stenosis): - Hypoxia on 4L NC 02/26 - resolved with CPAP and Lasix 40 mg IV x 1 dose - Echo - EF 65-70%, mild LVH, no regional wall abnormalities, severe aortic stenosis - Continue reduced dose of Metoprolol 50 mg BID - previous admission and Allscripts reviewed - patient was reduced to 50 mg on previous admission -- Her PCP follow-up patient was unsure the changes and resumed her regular dosing - patient would benefit from medication management assistance - Lasix 40 mg po daily - Continue night CPAP and wean day O2 per nursing protocol Acute on Chronic Renal Failure Stage IV: BASELINE - Calcitriol 0.25 mcg daily Atrial Fibrillation and Severe Aortic Stenosis: - Metoprolol 50 mg BID and Xarelto 15 mg daily - TAVR evaluation as outpatient - information sent - [facility] to contact Son Diabetes Mellitus: - Novolin-NPH 20 units SC AM and 10 units SC afternoon with SSI coverage 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 DVT Prophylaxis: Xarelto Code Status: FULL RESUSCITATION Disposition: Medically suitable for discharge - D/C to [facility] today vs tomorrow - plan to transition to [facility] for personal intermediate after SNF Discharge planning: half-way facility (Stephanie Finch, PA-C) i personally examined pt and verified all valle points w Mao Finch PAC feeling better appreciative of care, undersands role of snf > pch initially w goal of pch breathing better vitlas noted nad breathing unlabored asked to see also in conjunction w [facility] READI study - passed their 2 question delirium screen a/p weakness/dehydration - resolved acute decompensation of chronic mediated CHF - resolved hypoxia - slowly improving stable for SNF once available, otherwise as above (Kd Golden D.Gama.)
[2017-02-28] MEDS: RIVAROXABAN TAB 15 MG TAB PO SCH (17:46)
[2017-02-28] MEDS: ATORVASTATIN 40 MG TAB PO SCH (21:06)
[2017-02-28] MEDS: MIRTAZAPINE TAB 15 MG TAB PO SCH (21:07)
[2017-02-28] MEDS: HYDROCODONE/ACETAMI 10/325 TAB PO PRN (21:22)
[2017-03-01] MEDS: LEVOTHYROXINE 150 MCG TAB PO SCH (06:14)
[2017-03-01 07:25] VITALS: BP 190/83; PULSE 80; TEMP 36.5; O2SAT 96
[2017-03-01 08:00] VITALS: O2SAT 96
[2017-03-01] MEDS: PAROXETINE 20 MG TAB PO SCH (08:10)
[2017-03-01] MEDS: ALLOPURINOL 100 MG TAB PO SCH (08:10)
[2017-03-01] MEDS: METOPROLOL TARTRATE 50 MG TAB PO SCH (08:10)
[2017-03-01] MEDS: MAGNESIUM OXIDE 400 MG TAB PO SCH (08:10)
[2017-03-01] MEDS: CALCITRIOL 0.25 MCG CAP PO SCH (08:11)
[2017-03-01] MEDS: PANTOprazole SOD 40 MG TAB PO SCH (08:11)
[2017-03-01] MEDS: FUROSEMIDE 40 MG TAB PO SCH (08:11)
[2017-03-01] MEDS: HYDROCODONE/ACETAMI 10/325 TAB PO PRN (08:19)
[2017-03-01] MEDS: INSULIN ASPART 100 UNITS/ML 3 ML PEN SC SCH ×2 (08:24→13:11)
[2017-03-01] MEDS: INSULIN HUMAN NPH SQ SCH (08:25)
[2017-03-01] MEDS ORDERED: HYDR-4383 PO (08:33)
[2017-03-01 12:42] VITALS: BP 190/83; PULSE 80; TEMP 36.5; O2SAT 96
--- NOTE | 2017-03-01 14:09 | Discharge Summary ---
Discharge Summary Date of Service Mar 01, 2017. (Stephanie Finch PA-C) Discharge Summary Admission Date: Feb 25, 2017 at 11:07 Discharge Date: Mar 01, 2017 Discharge Disposition: [facility] facility Principal Diagnosis: Dehydration vs Acute on Chronic Systolic Congestive Heart Failure Problems/Secondary Diagnoses: Medical Problems: (1) Acute on chronic renal insufficiency (2) Aortic stenosis (3) Chronic lymphocytic leukemia (CLL), B-cell (4) Congestive heart failure (5) Controlled atrial fibrillation (6) CORONARY ATHEROSCLEROSIS OF [place] CORONARY VESSEL (7) DIAB TRELL WO COMPL, TYPE II OR UNSPEC TYPE, UNCONTROLLED (8) Fall (9) MALIG SAMMIE CORPUS UTERI (10) Pneumonia (11) SOB (shortness of breath) Immunizations: Have You Had Influenza Vaccine: Yes Influenza Vaccine Date: Aug 26, 2006 History of Tetanus Vaccine?: Yes History of Pneumococcal: Yes History of Hepatitis B Vaccine: No Procedures: 1. CT OF THE HEAD WITHOUT CONTRAST CLINICAL HISTORY: Altered mental status. COMPARISON STUDY: Head CT January 08, 2017 CT DOSE: 601.98 mGy.cm TECHNIQUE: Helical axial images of the head were obtained without IV contrast. Automated exposure control was utilized for the study. FINDINGS: No acute intracranial hemorrhage, midline shift or mass effect is present. Ventricular system is stable. Basilar cisterns are patent. There are no extra-axial collections. 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 There are no findings to suggest acute dural sinus thrombosis or acute territorial infarct. There are several opacified left mastoid air cells. There are minimal layering secretions within the right sphenoid sinus. There is no calvarial fracture. IMPRESSION: 1. No acute intracranial findings. 2. Old right frontal lobe infarct. 2. CHEST ONE VIEW PORTABLE CLINICAL HISTORY: Generalized weakness. COMPARISON STUDY: Chest radiograph January 08, 2017. FINDINGS: This exam is compromised by suboptimal penetration. No pneumothorax or pleural effusion is present. There is no lobar consolidation. Moderate cardiomegaly is unchanged. There is stable pulmonary vascular congestion without overt pulmonary edema. IMPRESSION: No change in appearance of the chest. Cardiomegaly with pulmonary vascular congestion. 3. ECHOCARDIOGRAM -- Conclusions -- * Technically limited study * 1. Normal LV size. Mild concentric LVH. * 2. Normal LV systolic function. LVEF 65-70%. No regional wall motion abnormalities. * 3. RV not well visualized. Grossly normal size. * 4. Aortic valve is calcified, thickened and restricted. Adequate doppler velocities not obtained to estimate severity. Appears severe on 2D. * 5. Mild aortic regurgitation. * 6. Mitral annular calcification with mild mitral stenosis. * 7. Compared with prior study on 01/09/2017: Unable to quantify severity. severe on prior study. Consultations: 1. PT/OT (Stephanie Finch, AMIE) Medication Reconciliation New Medications: Magnesium Oxide (Magnesium-Oxide) 400 Mg Tab 400 MG PO BID for 30 Days, #60 TAB Metoprolol Tartrate (Metoprolol Tartrate) 50 Mg Tab 50 MG PO BID for 30 Days, #60 TAB Continued Medications: Allopurinol (Zyloprim) 100 Mg Tab 100 MG PO DAILY, TAB Atorvastatin (Lipitor) 40 Mg Tab 40 MG PO HS, TAB Calcitriol (Rocaltrol Cap) 0.25 Mcg Cap 0.25 MCG PO DAILY, 0 Refills Esomeprazole Magnesium (Nexium) 40 Mg Capcr 40 MG PO DAILY, 0 Refills Furosemide (Lasix) 40 Mg Tab 40 MG PO DAILY Hydrocodone/Acetaminophen (Kittrell 10/325 Tab) 1 Tab Tab 1 TAB PO Q12 PRN for Pain for 14 Days (This prescription has been renewed) Insulin Aspart (Novolog Flexpen) 100 Units/Ml Inj 0 UNITS SC ACHS for 30 Days Insulin Human NPH (Novolin N) 100 Units/Ml Susp 20 UNITS SQ QAM for 30 Days TAKE WITH BREAKFAST Insulin Human NPH (Novolin N) 100 Units/Ml Susp 10 UNITS SQ QPM for 30 Days TAKE WITH SUPPER Levothyroxine Sodium (Levothyroxine Sodium) 150 Mcg Tab 1 TAB PO DAILY for 90 Days, #90 TAB 3 Refills Lorazepam (Ativan) 1 Mg Tab 1 MG PO DAILY PRN for Anxiety Mirtazapine (Mirtazapine) 15 Mg Tab 15 MG PO HS Paroxetine HCl (Paroxetine) 30 Mg Tab 30 MG PO DAILY Rivaroxaban (Xarelto) 15 Mg Tab 15 MG PO DAILY Tramadol (Ultram) 50 Mg Tab 50 MG PO Q6 PRN for Pain Discontinued Medications: Hctz/Losartan (Hyzaar 12.5MG/50MG) Tab 1 TAB PO DAILY Metoprolol Tartrate (Lopressor) (Lopressor) 100 Mg Tab 100 MG PO BID Metronidazole (Metronidazole) 500 Mg Tab 500 MG PO TID Discharge Exam REVIEW OF SYSTEMS: General/Constitutional: +GENERALIZED WEAKNESS (IMPROVING); Denies fever/chills, fatigue ENT: Denies visual changes, nasal drainage, hearing loss, sore throat, trouble swallowing Cardiovascular: Denies chest pain, palpitations, edema Respiratory: + TURCIOS, COUGH; Denies wheezing, orthopnea GI: Denies nausea, vomiting, abdominal pain, constipation, diarrhea, melena/ hematochezia : Denies dysuria, frequency, hematuria Musculoskeletal: Denies joint/muscle aches, swelling Neurologic: Denies dizziness/lightheadedness, numbness/tingling, weakness Psychiatric: Deferred Endocrine: Deferred Hematologic/Lymphatic: Denies bleeding/clotting abnormalities Skin: Denies rash, itch, new skin changes, easy bruising Allergy/Immunologic: Deferred HISTORY AND PHYSICAL: General Appearance: WDWN in NAD who is A&O x 3; Obese HEENT: Head is normocephalic/atraumatic; EOMI; PERRLA; Hearing grossly intact; Mucous membranes moist Neck: Supple; Trachea midline; Neg JVD; Neg lymphadenopathy Heart: Irregularly irregular; Systolic murmur II-III/ Lungs: CTA in all lung billy bilaterally but diminished; Respirations unlabored ; Neg accessory muscle use Abdomen: Soft, non-tender, non-distended; Positive BS x 4 quadrants; Neg organomegaly Extremities: Capillary refill < 2 seconds; Neg cyanosis or edema Neurological: Speech clear; Gross motor/sensory function intact; Neg focal neurologic deficits Psychiatric: Appropriate mood/affect Skin: Normal Color; Warm/Dry; Neg rashes, ecchymosis, lacerations/ulcerations (Stephanie Finch, PA-C) Hospital Course ADMISSION: The patient is a 81-year-old female who presents to the emergency department with worsening generalized weakness over the past few days prior to arrival. She was admitted to the hospital from January 08 to January 11 for treatment of UTI. She reports that since that time she's had persistent and worsening weakness and more recently has been unable to walk. She also has had decreased urination. Because of these worsening symptoms she called EMS who brought her to the emergency department for assessment. She's had no recent travel, or sick exposures. She reports that her oral intake for both liquids and solids has been diminished recently. HOSPITAL COURSE: Ms. Gustafson was admitted for dehydration vs acute on chronic congestive heart failure. Upon admission, patient of underlying dehydration as patient was recently treated for UTI and decreased urine output. Question if patient was more an acute failure as CXR show pulmonary congestion. Patient was gently hydrated with some improvement in creatinine from 3.7 to 2.7. On 02/26 nursing staff called as patient had acute confusion and was 85% on 4 L NC. Her CPAP was applied inadequate oxygenation obtained. She was noted to be using accessory muscles to breathe and crackles auscultated at bases bilaterally. She was treated with Lasix 40 mg IV 1 dose. Patient adequately diuresed and with improvement in oxygenation returned to baseline mentation. Patient continued to need daytime oxygen which is not her baseline and plan is to wean at SNF as allowed. Lung exam remained diminished without further crackles appreciated. She was resumed on her home dose Lasix 40 mg po daily. Also during this acute change, patient was noted to be intermittently bradycardic on monitor. Her metoprolol dose was decreased to 50 mg BID. Upon further review, metoprolol was reduced on previous admission. Review of outpatient records reveal patient was unaware of medication changes. Of note, patient will benefit from assistance with medication management. She appears to have a fine line between wet versus dry which may be related to her severe aortic stenosis. Information was supplied to the patient and her son in regards to TAVR evaluation as an outpatient. Patient is at baseline mentation with some improvement in generalized weakness. PT/OT recommendations acute rehabilitation or SNF. Plan for her acute stay with transition to [facility]. She was discharged to SNF with decreased metoprolol dosing of metoprolol 50 mg BID. Recommendations for insulin coverage of NPH 20 units AM and 10 units PM with sliding scale coverage. Patient is afebrile, without leukocytosis, with no acute complaints. She is optimal for discharge to SNF at this time. Total Time Spent: Greater than 30 minutes This includes examination of the patient, discharge planning, medication reconciliation, and communication with other providers. (Stephanie Finch, PAJobC) i personally examined pt and verified all valle points w Mao Finch PAC feeling better feels like at baseline interestingly notes that O2 was off for a bit and pulse ox was still >90% on rest on RA vitals noted nad breathing unlabored no pallor or icterus weakness - was dry - hydrated - improved. narrow narrow therapeutic window for fluids given --> acute CHF - diurese carefully - improved. continue careful balance of wet vs dry (would recommend frequent clinical evals and likely at least weekly BMP for near future) -to be set up at [place] for eval for TAVR -stable for SNF (Kd oGlden D.O.) Discharge Instructions Please refer to the electronic Patient Visit Report (Discharge Instructions) for additional information. (Stephanie Finch, PA-C) Additional Copies To Joesph Horan M.D.
== END 2017-03-01 13:30 | DRG 291 ==
LOC: ENRESERVDT → ENRESERVTM → EDBD 18:07 → C.EDB 18:08 → C.MED 22:22 → CANBEDREQ 02-25 06:38 → OBSVTOIN 02-25 11:07
PROVIDERS: ADMIT Hospitalist; ATTEND Family Medicine
DX: I13.0 Hypertensive heart and chronic kidney disease with heart failure and stage 1 through stage 4 chronic kidney disease, or unspecified chronic kidney disease (principal); I50.23 Acute on chronic systolic (congestive) heart failure; C91.10 Chronic lymphocytic leukemia of B-cell type not having achieved remission; N39.0 Urinary tract infection, site not specified; N17.9 Acute kidney failure, unspecified; E86.0 Dehydration; K21.9 Gastro-esophageal reflux disease without esophagitis; I25.10 Atherosclerotic heart disease of native coronary artery without angina pectoris; E11.22 Type 2 diabetes mellitus with diabetic chronic kidney disease; E78.00 Pure hypercholesterolemia, unspecified; E03.9 Hypothyroidism, unspecified; M10.9 Gout, unspecified; N18.3 Chronic kidney disease, stage 3 (moderate); F32.9 Major depressive disorder, single episode, unspecified; G47.00 Insomnia, unspecified; I48.2 Chronic atrial fibrillation; I08.3 Combined rheumatic disorders of mitral, aortic and tricuspid valves; Z86.73 Personal history of transient ischemic attack (TIA), and cerebral infarction without residual deficits

== ENCOUNTER → 2017-03-05 | Outpatient (CLI) | payer OTHER ==
[~2017-03-05] MED LIST changes: +ATV/1 PO; +FRS/40 PO; -FURO40TA3 PO; -HYZ/50125 PO; +MGNO400 PO; +RMR15 PO; -SALI0.6510; +TRAM-10 PO; -TYL325X PO
== END ==
LOC: EDSTATUS 12:47 → C.LABUPNIT 20:11
PROVIDERS: ATTEND Family Medicine
DX: J10.1 Influenza due to other identified influenza virus with other respiratory manifestations (principal)